=== PATIENT | female | born 1955 | race Caucasian/White ===

== ENCOUNTER 2020-03-14 12:18 | Emergency (ER) | payer BC, SELFPAY ==
--- NOTE | ~2020-03-14 | XR_ITS ---
EXAMINATION: XR hand LT min 3V DATE: 03/14/2020 12:42 INDICATION: Left hand pain. Fall. TECHNIQUE: 3 views of left hand were obtained. COMPARISON: None. FINDINGS: Bone alignment is normal. There is a nondisplaced avulsion fracture of palmar base of fifth middle phalanx.. There is mild osteoarthritis of triscaphe joint, first carpometacarpal joint, first interphalangeal joint, and second through fifth distal interphalangeal joints. IMPRESSION: 1. Nondisplaced avulsion fracture of palmar base of fifth middle phalanx. 2. Polyarticular osteoarthritis. Reviewed, dictated and finalized at location B.
[2020-03-14 12:28] VITALS: BP 123/96; PULSE 96; RESP 20; TEMP 36.3; O2SAT 99
--- NOTE | 2020-03-14 12:54 | ED.UPPEXIN ---
HPI - Extremity Injury (Upper) General Chief Complaint: Extremity Injury, Upper Stated Complaint: L/hand swollen Time Seen by Provider: 03/14/20 12:45 Source: patient and RN notes reviewed Mode of arrival: ambulatory Limitations: no limitations History of Present Illness HPI narrative: Patient presents today complaining of an injury to her right hand. A week ago she tripped over a curb and fell onto an outstretched hand. States swelling and pain persist in her fifth finger that occasionally radiates down to the wrist. Denies numbness or tingling. Currently rates her pain 3/10 and has been applying ice and taking ibuprofen with mild relief. complaint: injury to: right and finger Related Data Home Medications Medication Instructions Recorded Confirmed bupropion HCl 300 mg PO QAM 08/11/19 08/11/19 duloxetine 60 mg PO DAILY 08/11/19 08/11/19 levothyroxine [Synthroid] 75 mcg PO DAILY 08/11/19 08/11/19 omeprazole 20 mg PO DAILY 08/11/19 08/11/19 pitavastatin calcium [Livalo] 4 mg PO DAILY 08/11/19 08/11/19 travoprost [Travatan Z] 1 drp OPHTHALMIC (EYE) QPM 08/11/19 08/11/19 Allergies Allergy/AdvReac Type Severity Reaction Status Date / Time SURGICAL TAPE Allergy RASH AND Uncoded 03/14/20 12:34 ITCHING Review of Systems Review of Systems: Narrative: CONSTITUTIONAL: Denies body aches, fever, chills, or sweats. EYES: Denies visual changes, redness, or discharge. ENT: Denies rhinorrhea, congestion, sore throat, or otalgia. CARDIOVASCULAR: Denies chest pain, palpitations, or edema. RESPIRATORY: Denies cough or dyspnea. GASTROINTESTINAL: Denies abdominal pain, nausea, vomiting, or diarrhea. GENITOURINARY: Denies dysuria or hematuria. SKIN: Denies rash, itching, or wounds. MUSCULOSKELETAL: Denies back pain, or myalgia.+ Right fifth finger injury NEUROLOGIC: Denies headache, numbness, tingling, or weakness. PSYCH: Denies depression or anxiety. [facility] Social History Social History Smoking status: Former smoker Alcohol intake: current Substance use: never Comments At time of signature, I have reviewed and agree with nursing past medical, surgical, social and family history unless otherwise noted. Please see nursing chart for further information. There is no relevant family history pertinent to the presenting complaint Exam Narrative: Exam Narrative: GENERAL: Well-appearing, well-nourished, and in no acute distress. HEAD: Normocephalic, atraumatic. EYES: EOMI. No redness or drainage. Conjunctivae normal. ENT: Mucous membranes pink and moist. NECK: Normal AROM. CHEST: No respiratory distress. EXTREMITIES: Tenderness to the PIP and middle phalanx of the right fifth finger with mild edema and ecchymosis. No tenderness to the remaining fingers or metacarpals. Distal sensation intact. Capillary refill normal. Radial pulse normal. Range of motion is somewhat limited to the fifth finger due to pain and swelling. All other extremities grossly normal. SKIN: Warm, dry, no rash. Capillary refill normal. Normal skin turgor. NEURO: No focal deficits. Alert and oriented x3. Gait steady. PSYCH: Normal affect. No signs of depression or anxiety. Course Vital Signs Vital signs: Vital Signs Temperature 97.4 F L 03/14/20 12:28 Pulse Rate 96 03/14/20 12:28 Respiratory Rate 20 03/14/20 12:28 Blood Pressure 123/96 H 03/14/20 12:28 Pulse Oximetry 99 03/14/20 12:28 Temperature 97.4 F L 03/14/20 12:28 Pulse Rate 96 03/14/20 12:28 Respiratory Rate 20 03/14/20 12:28 Blood Pressure 123/96 H 03/14/20 12:28 Pulse Oximetry 99 03/14/20 12:28 Reviewed. Pt has been instructed to follow up with her PCP regarding her elevated blood pressure today. Procedures Orthopedic Splinting/Casting Injury #1: Splinting/Casting Date: 03/14/20 Splinting/Casting Time: 12:57 Side: right Upper Extremity Injury Location: [facility]
== END 2020-03-14 13:09 | disposition home or self-care (01) ==
PROVIDERS: Emergency Provider Nurse Practitioner; PCP Family Medicine
DX: S62.657A Nondisplaced fracture of middle phalanx of left little finger, initial encounter for closed fracture (principal); W18.00XA Striking against unspecified object with subsequent fall, initial encounter; E78.00 Pure hypercholesterolemia, unspecified; K21.9 Gastro-esophageal reflux disease without esophagitis; E03.9 Hypothyroidism, unspecified; H40.9 Unspecified glaucoma; F32.9 Major depressive disorder, single episode, unspecified; Z85.72 Personal history of non-Hodgkin lymphomas; Z92.21 Personal history of antineoplastic chemotherapy; Z92.3 Personal history of irradiation
CPT/HCPCS: 29130; 73130; 99214; G0463

== ENCOUNTER 2020-07-06 07:05 | Outpatient (NON) | payer BC, SELFPAY ==
[2020-07-07 12:35] LABS: SARS-CoV-2 RNA PCR Negative
== END 2020-07-06 07:06 ==
PROVIDERS: PCP Family Medicine; Visit Provider Physician Assistant
DX: R68.89 Other general symptoms and signs (principal); Z20.828 Contact with and (suspected) exposure to other viral communicable diseases
CPT/HCPCS: 87635; C9803; U0003

== ENCOUNTER 2020-10-10 10:32 | Emergency (ER) | payer BC, SELFPAY ==
--- NOTE | 2020-10-10 10:40 | ED.URI ---
HPI - URI/Sore Throat General Chief Complaint: Upper Respiratory Infection Stated Complaint: cough/scratchy throat Time Seen by Provider: 10/10/20 10:40 Source: patient and RN notes reviewed Mode of arrival: ambulatory Limitations: no limitations History of Present Illness HPI Narrative: 65-year-old female presents with concern for 3 to 4-day history of rhinorrhea, postnasal drainage, nasal congestion, sinus headache, ears clogged. Reports coughing started last night and could not sleep because of coughing. She denies fever, chills, sweats. Reports mild body aches. Reports scratchy throat. Denies any known sick contacts. Reports she is due for her second Covid vaccination in 10 days. She denies shortness of breath, loss of sense of taste or smell. MD elicited complaint: rhinorrhea Related Data Home Medications Medication Instructions Recorded Confirmed bupropion HCl 300 mg PO QAM 08/11/19 03/14/20 duloxetine 60 mg PO DAILY 08/11/19 03/14/20 levothyroxine [Synthroid] 75 mcg PO DAILY 08/11/19 03/14/20 omeprazole 20 mg PO DAILY 08/11/19 03/14/20 pitavastatin calcium [Livalo] 4 mg PO DAILY 08/11/19 03/14/20 travoprost [Travatan Z] 1 drp OPHTHALMIC (EYE) QPM 08/11/19 03/14/20 lisinopril 10/10/20 Allergies Allergy/AdvReac Type Severity Reaction Status Date / Time SURGICAL TAPE Allergy RASH AND Uncoded 03/14/20 12:34 ITCHING Review of Systems Review of Systems: Narrative: CONSTITUTIONAL: Denies malaise, chills, sweats, or fever. EYES: Denies visual changes, redness, or discharge. ENT: Reports rhinorrhea, congestion,otalgia and sore throat. CARDIOVASCULAR: Denies chest pain, palpitations, or edema. RESPIRATORY: Reports cough. Denies dyspnea. GASTROINTESTINAL: Denies abdominal pain, nausea, vomiting, diarrhea SKIN: Denies rash or itching. MUSCULOSKELETAL: Reports myalgia. NEUROLOGIC: Reports headache. All systems reviewed & are unremarkable except as noted in HPI and below PMFSH Past Medical History Medical History (Updated 10/10/20 @ 10:55 by Shayy Stewart NP) Acid reflux Anemia Depression Diverticulosis Glaucoma High cholesterol Hypothyroid Non Hodgkin's lymphoma Normal colonoscopy Rectocele Surgical History Surgical History History of bladder surgery History of carpal tunnel surgery History of cholecystectomy History of tonsillectomy Family History Family History Father Family history of heart disease in male family member before age 55 Mother Lung cancer High cholesterol Cerebrovascular accident Social History Social History Smoking status: Former smoker Alcohol intake: current Substance use: never Comments At time of signature, agree with nursing past medical, surgical, social and family history. There is no relevant family history pertinent to the presenting complaint Exam Narrative: Exam Narrative: GENERAL: Well-appearing, well-nourished, and in no acute distress. HEAD: Normocephalic EYES: PERRLA, conjunctivae clear ENT: Nares clear, turbinates erythematous, clear discharge. Mucous membranes moist. TM pearly birch with dull light reflex bilaterally; no tragal tenderness. Oropharynx not erythematous without lesions. Tonsils not enlarged and without exudate, no drooling, no hoarseness, no trismus, uvula midline. NECK: Supple. No lymphadenopathy CHEST: Clear to auscultation, breath sounds equal. No wheezing, rhonchi, rales, or stridor. No respiratory distress, speaks in full sentences. HEART: Regular rate and rhythm. No murmur heard. SKIN: Warm, dry, no rash. NEURO: Alert and oriented x3. PSYCH: Normal mood and affect Course Course Emergency Course: Patient is aware of diagnosis, understands and agrees to treatment plan. Anticipatory guidance given. Patient agrees to follow-up as directed and is aware of reaso
[2020-10-10 10:46] VITALS: BP 116/63; PULSE 91; RESP 16; TEMP 36.8; O2SAT 100
== END 2020-10-10 11:13 | disposition home or self-care (01) ==
PROVIDERS: Emergency Provider Nurse Practitioner; PCP Family Medicine
DX: J06.9 Acute upper respiratory infection, unspecified (principal); Z20.822 Contact with and (suspected) exposure to COVID-19; Z87.891 Personal history of nicotine dependence; K21.9 Gastro-esophageal reflux disease without esophagitis; F32.9 Major depressive disorder, single episode, unspecified; H40.9 Unspecified glaucoma; E78.00 Pure hypercholesterolemia, unspecified; E03.9 Hypothyroidism, unspecified; Z85.72 Personal history of non-Hodgkin lymphomas
CPT/HCPCS: 87426; 99213; C9803; G0463

== ENCOUNTER → 2020-12-20 07:35 | Outpatient (CLI) | payer BC, SELFPAY ==
--- NOTE | ~2020-12-20 | MR_ITS ---
EXAMINATION: MR lumbar spine wo con DATE: 12/20/2020 08:53 INDICATION: Lumbar spinal stenosis with neurogenic claudication. TECHNIQUE: Magnetic resonance imaging (MRI) of the lumbar spine was performed without intravenous con trast. Sequences included sagittal T2-weighted FSE, sagittal T2-weighted FS FSE, sagittal T1-weighted FSE, and axial T2-weighted FSE. COMPARISON: Lumbar spine MRI 06/24/2019 FINDINGS: There is 5 degrees levocurvature of lumbar spine. There is 3 mm retrolisthesis of L1 on L2, L2 on L3, and L3 on L4 and 4 mm anterolisthesis of L5 on S1. There is mild chronic anterior wedging of T11 vertebral body. There is moderately decreased disc height from L1-L2 through L3-L4, severely d ecreased disc height at L4-L5, and moderately decreased disc height at L5-S1. The distal spinal cord signal intensity is normal. The conus medullaris is at T12-L1. The following disc levels are specific ally discussed: L1-L2: The disc is bulging with superimposed left central extrusion. There is mild bilateral facet kristen int osteoarthritis. There is mild bilateral neural foraminal stenosis. There is mild central canal st enosis. L2-L3: The disc is bulging with superimposed central extrusion. There is mild bilateral facet joint o steoarthritis. There is mild bilateral neural foraminal stenosis. There is mild central canal stenosi s. L3-L4: The disc is bulging with superimposed right central extrusion. There is mild bilateral facet j oint osteoarthritis. There is mild bilateral neural foraminal stenosis. There is mild central canal s tenosis. L4-L5: The disc is bulging and has an annular fissure. There is severe right and moderate left facet joint osteoarthritis. There is moderate right and mild left neural foraminal stenosis. There is mild central canal stenosis. L5-S1: The disc is bulging and has an annular fissure. There is severe bilateral facet joint osteoart hritis. There is mild bilateral neural foraminal stenosis. There is mild central canal stenosis. IMPRESSION: 1. Severe lumbar spondylosis, stable from 06/24/2019. Reviewed, dictated and finalized at location A.
--- NOTE | ~2020-12-20 | MR_ITS ---
EXAMINATION: MR cervical spine wo con EXAM DATE: 12/20/2020 08:49 INDICATION: Cervical spondylosis. Neck pain. TECHNIQUE: Multi-sequential, multiplanar MR images of the cervical spine were obtained without contra st. Axial T2, axial T2 MERGE sequence. Sagittal T1, T2, T2 fat saturation images also obtained. Th ere is no prior study for comparison. FINDINGS: There is moderate to severe loss of the C5-6 disc height, moderate at C6-7 and mild at C4- 5. The spinal cord signal intensity and intrinsic morphology is normal. Cervicomedullary junction is normal in appearance. The vertebral bodies are aligned in the AP dimension. Paraspinal soft tissue is unremarkable. Level by level evaluation: C2-C3: Disc does not extend beyond the endplate margin. Uncovertebral joint arthropathy: Mild to moderate right, mild left. Facet joint arthropathy: Mild bilateral. Neural foraminal stenosis: No stenosis. Central canal stenosis: No stenosis. C3-C4: Disc does not extend beyond the endplate margin. Uncovertebral joint arthropathy: Mild bilateral. Facet joint arthropathy: Moderate bilateral. Neural foraminal stenosis: No stenosis. Central canal stenosis: No stenosis. C4-C5: There is a minimal diffuse disc bulge. Uncovertebral joint arthropathy: Mild bilateral. Facet joint arthropathy: Moderate bilateral. Neural foraminal stenosis: No stenosis. Central canal stenosis: No stenosis. C5-C6: There is a mild diffuse disc bulge. Uncovertebral joint arthropathy: Severe right, moderate left. Facet joint arthropathy: Moderate bilateral. Neural foraminal stenosis: Moderate to severe right. Central canal stenosis: Mild. C6-C7: There is a mild diffuse disc bulge. Uncovertebral joint arthropathy: Moderate to severe right, moderate left. Facet joint arthropathy: Moderate bilateral. Neural foraminal stenosis: Moderate right, mild to moderate left. Central canal stenosis: Minimal. C7-T1: Disc does not extend beyond the endplate margin. Uncovertebral joint arthropathy: Mild to moderate left. Facet joint arthropathy: Mild to moderate left. Neural foraminal stenosis: No stenosis. Central canal stenosis: No stenosis. IMPRESSION: 1. Right neural foraminal stenosis at C5-6 more than C6-7. 2. Spondylosis as above. Reviewed, dictated and finalized at location A.
== END ==
PROVIDERS: PCP Family Medicine; Visit Provider Neurological Surgery
DX: M47.812 Spondylosis without myelopathy or radiculopathy, cervical region (principal); M48.062 Spinal stenosis, lumbar region with neurogenic claudication; M47.896 Other spondylosis, lumbar region
CPT/HCPCS: 72141; 72148

== ENCOUNTER → 2021-01-02 10:38 | Outpatient (CLI) | payer BC, SELFPAY ==
--- NOTE | ~2021-01-02 | MM_ITS ---
EXAMINATION: MM screening logan BI w sher HISTORY: Screening TECHNIQUE: Craniocaudal and mediolateral oblique 3-D tomosynthesis images were obtained and synthetic 2-D images were generated. CAD analysis was submitted and interpreted. COMPARISON: 09/08/2017 BREAST PARENCHYMAL COMPOSITION: There are scattered areas of fibroglandular density. FINDINGS: There is no evidence of suspicious mass, calcification, or architectural distortion to sugg est malignancy in either breast. There has been no suspicious interval change. IMPRESSION: 1. No mammographic evidence of malignancy. 2. Recommend routine screening mammography in one year. BI-RADS Category 1: Negative Reviewed, dictated and finalized at location A.
--- NOTE | ~2021-01-02 | DEXA_ITS ---
Bone Density Report Name: Adrianna Cadena Age: 65 Sex: Female Ethnicity: White Date of : 1955 Indication: postmenopausal; screening for osteoporosis; height loss; Referring Provider: HERMAN BEST Study: Bone densitometry was performed. Exam Date: January 02, 2021 Accession number: [id number] Bone Density: Region BMD T-score Z-score Classification AP Spine (L1-L4) 1.205 1.4 3.1 Normal Femoral Neck (Left) 0.756 -0.8 0.6 Normal Total Hip (Left) 0.895 -0.4 0.8 Normal Femoral Neck (Right) 0.780 -0.6 0.8 Normal Total Hip (Right) 0.961 0.2 1.3 Normal Total Hip Mean 0.928 -0.1 1.1 Normal World Health Organization criteria for BMD impression classify patients as: Normal (T-score at or above -1.0), Osteopenia (T-score between -1.0 and -2.5), or Osteoporosis (T-score at or below -2.5). 10-year Fracture Risk: FRAX not reported because: All T-scores for Spine Total, Hip Total, Femoral Neck at or above -1.0 Clinical Information Provided by Patient: Patient maximum height was 63.5 Menopause Age: 45 No regular weight bearing exercise Does not regularly consume dairy products Drinks caffeinated beverages Onset of menses at age 14 Number of children 2 Impression: The patient has normal bone mass. Discussion: BONE DENSITY IS ABOVE THE MINIMUM DESIRABLE LEVEL AT ALL SKELETAL SITES TESTED. This patient?s bone mineral density is above the minimum desirable level (T-score -1.0 or better) at all sites measured. The patient should follow a healthful lifestyle (good nutrition with adequate calcium and vitamin D, and appropriate weight-bearing exercise). Follow-Up: Consider repeating this study in 5 years or sooner if there is some new clinical indication. Reported by: VIDA on 01/02/2021 11:06:00 AM. Reviewed, dictated and finalized at location [facility]
== END ==
PROVIDERS: PCP Family Medicine; Visit Provider Obstetrics & Gynecology
DX: Z12.31 Encounter for screening mammogram for malignant neoplasm of breast (principal); Z13.820 Encounter for screening for osteoporosis
CPT/HCPCS: 77063; 77067; 77080

== ENCOUNTER 2021-04-09 08:22 | Emergency (ER) | payer BC, SELFPAY ==
--- NOTE | ~2021-04-09 | XR_ITS ---
EXAMINATION: XR foot LT min 3V EXAM DATE: 04/09/2021 09:01 INDICATION: Fall with swelling Lt Lat Dorsal Hematoma Pain . Initial encounter. TECHNIQUE: Left foot dorsoplantar, lateral and oblique projections obtained and reviewed. There is n o prior study for comparison. FINDINGS: There is acute closed posttraumatic left 5th metatarsal shaft fracture extending toward th e 4th phalangeal base, a Mcnulty type fracture. There is also an acute avulsion fracture off of the anterior superolateral aspect of the calcaneus. T his finding has been indicated, marked on the examination for review, clinical correlation. There i s overlying soft tissue swelling. IMPRESSION: 1. Acute Mcnulty fracture. 2. Acute calcaneal avulsion fracture. Reviewed, dictated and finalized at location A.
[2021-04-09 08:32] VITALS: BP 130/84; PULSE 87; RESP 18; TEMP 36.6; O2SAT 100
--- NOTE | 2021-04-09 09:17 | ED.GENADULT ---
HPI - General Adult General Chief complaint: Extremity Injury, Lower Stated complaint: Left Foot Pain Time Seen by Provider: 04/09/21 09:05 Source: patient Mode of arrival: ambulatory Limitations: no limitations History of Present Illness HPI narrative: Patient presents for evaluation of pain in the left foot and ankle since yesterday. She indicates she was coming down a ladder when she missed the bottom step. She injured her left foot and ankle in the process. She did not hit her head or have loss of consciousness. At rest she has minimal pain, however with weightbearing her pain increases to 9 out of 10 in severity. She describes the pain as sharp . She has some numbness in all digits of the left foot. She has a history of a herniated disc in her lumbar spine, for which she takes hydrocodone. She tried taking hydrocodone for her foot and it seemed to reduce her pain. Related Data Home Medications Medication Instructions Recorded Confirmed bupropion HCl 300 mg PO QAM 08/11/19 01/22/21 duloxetine 60 mg PO DAILY 08/11/19 01/22/21 levothyroxine [Synthroid] 75 mcg PO DAILY 08/11/19 01/22/21 omeprazole 20 mg PO DAILY 08/11/19 01/22/21 pitavastatin calcium [Livalo] 4 mg PO DAILY 08/11/19 01/22/21 travoprost [Travatan Z] 1 drp OPHTHALMIC (EYE) QPM 08/11/19 01/22/21 lisinopril 10/10/20 01/22/21 Allergies Allergy/AdvReac Type Severity Reaction Status Date / Time SURGICAL TAPE Allergy RASH AND Uncoded 01/22/21 14:55 ITCHING Review of Systems Review of Systems: CONSTITUTIONAL: Denies fever, chills, or sweats. EYES: Denies visual changes, redness, or discharge. ENT: Denies rhinorrhea, congestion, sore throat, or otalgia. CARDIOVASCULAR: Denies chest pain, palpitations, or edema. RESPIRATORY: Denies cough or dyspnea. GASTROINTESTINAL: Denies abdominal pain, nausea, vomiting, or diarrhea. GENITOURINARY: Denies dysuria or hematuria. SKIN: Denies rash or itching. MUSCULOSKELETAL: Reports pain in the left foot and ankle. Denies back pain or myalgia. NEUROLOGIC: Denies headache, numbness, dizziness, or weakness. PSYCHIATRIC: Denies anxiety or depression. PMFSH Past Medical History Medical History (Updated 04/09/21 @ 09:56 by ALCIDES Ulrich, ) Acid reflux Anemia Depression Diverticulosis Glaucoma High cholesterol Hypothyroid Non Hodgkin's lymphoma Normal colonoscopy Rectocele Surgical History Surgical History History of bladder surgery History of carpal tunnel surgery History of cholecystectomy History of tonsillectomy Family History Family History Father Family history of heart disease in male family member before age 55 Mother Lung cancer High cholesterol Cerebrovascular accident Social History Social History Smoking status: Former smoker Alcohol intake: current Substance use: never Exam Narrative: GENERAL: Well-appearing, well-nourished, and in no acute distress. HEAD: Normocephalic, atraumatic. EYES: PERRLA and EOMI. ENT: Nares clear, no rhinorrhea or epistaxis. Mucous membranes moist. Oropharynx without tonsillar hypertrophy exudate or other lesions. Bilateral TMs pearly birch nonbulging NECK: Supple. No adenopathy or masses. No carotid bruits or JVD CHEST: Clear to auscultation. No respiratory distress. No wheezes rales or rhonchi HEART: Regular rate and rhythm. No murmur heard. Normal peripheral pulses. ABDOMEN: Soft, nontender, nondistended, normal active bowel sounds. EXTREMITIES: Tenderness noted over the dorsal aspect of the third, fourth, fifth metatarsals of the left foot. Normal range of motion. No edema. SKIN: Ecchymosis to dorsal aspect of the left foot and over the left lateral malleolus. Skin is warm, dry, no rash. NEURO: No focal deficits. Alert and oriented x3. PSYCH: Normal moo
[2021-04-09 11:05] VITALS: BP 103/81; PULSE 80; RESP 18; O2SAT 100
== END 2021-04-09 11:58 | disposition home or self-care (01) ==
PROVIDERS: Emergency Provider Nurse Practitioner; PCP Family Medicine
DX: S92.352A Displaced fracture of fifth metatarsal bone, left foot, initial encounter for closed fracture (principal); S92.002A Unspecified fracture of left calcaneus, initial encounter for closed fracture; F32.9 Major depressive disorder, single episode, unspecified; E78.00 Pure hypercholesterolemia, unspecified; E03.9 Hypothyroidism, unspecified; Z85.72 Personal history of non-Hodgkin lymphomas; Z87.891 Personal history of nicotine dependence; W11.XXXA Fall on and from ladder, initial encounter
CPT/HCPCS: 29515; 73630; 99284

== ENCOUNTER → 2021-08-21 09:45 | Outpatient (CLI) | payer BC, SELFPAY ==
[2021-08-21 21:10] LABS: SARS-CoV-2 RNA PCR Positive
== END ==
PROVIDERS: PCP Family Medicine; Visit Provider Physician Assistant
DX: U07.1 COVID-19 (principal)
CPT/HCPCS: C9803; U0003; U0005

== ENCOUNTER → 2022-01-17 11:59 | Outpatient (CLI) | payer MEDICARE, BC, SELFPAY ==
--- NOTE | ~2022-01-17 | MR_ITS ---
EXAMINATION: MR shoulder LT wo con DATE: 01/17/2022 12:40 INDICATION: Left shoulder pain TECHNIQUE: Magnetic resonance imaging (MRI) of the left shoulder was performed without intravenous co ntrast. Sequences included axial PD-weighted FS FSE, coronal oblique PD-weighted FS FSE, coronal obli que T2-weighted FS FSE, sagittal PD-weighted FS FSE, and sagittal T1-weighted SE. COMPARISON: None. FINDINGS: Coracoacromial arch: The acromion undersurface is flat in morphology (type I). The coracoacromial ligament is normal. Mild to moderate acromioclavicular osteoarthritis. Rotator cuff: Moderate subscapularis and mild supraspinatus and infraspinatus tendinopathy without discrete tear. E xtremity noted is thickening of the rotator cable. The teres minor tendon is normal. Normal rotator c uff muscle bulk and signal. Biceps tendon, glenoid labrum and glenohumeral cartilage: Long head of the biceps tendon is normal. A small tear at the base of the posterior superior glenoid labrum. Mild partial-thickness cartilage loss with smooth chondral surface along the cephalad third o f the glenoid. Additional partial thickness cartilage loss along the posterior superior aspect of the humeral head. Small marginal osteophytes along the inferior aspect of the humeral head. Fluid: Small glenohumeral joint effusion. Proportional extension of small amount of fluid caudal along the l randall head biceps tendon sheath. No loose osteochondral bodies. No abnormal fluid signal in the subacro mial/subdeltoid bursa to suggest bursitis. Bones: Normal marrow signal with no edema, fracture or abnormal marrow replacing process. IMPRESSION: 1. Mild to moderate rotator cuff tendinopathy without evident tear. 2. Mild glenohumeral osteoarthritis with small tear at the posterior superior glenoid labrum. 3. Small glenohumeral joint effusion. Reviewed, dictated and finalized at location A. IMPRESSION: 1. Mild to moderate rotator cuff tendinopathy without evident tear. 2. Mild glenohumeral osteoarthritis with small tear at the posterior superior g lenoid labrum. 3. Small glenohumeral joint effusion.
== END ==
PROVIDERS: PCP Family Medicine; Visit Provider Orthopaedic Surgery
DX: M25.412 Effusion, left shoulder (principal); M19.012 Primary osteoarthritis, left shoulder
CPT/HCPCS: 73221

== ENCOUNTER → 2022-04-16 12:40 | Outpatient (CLI) | payer MEDICARE, BC, SELFPAY ==
--- NOTE | ~2022-04-16 | MR_ITS ---
EXAMINATION: MR thoracic spine wo con DATE: 04/16/2022 13:23 INDICATION: Thoracic back pain. TECHNIQUE: Magnetic resonance imaging (MRI) of the thoracic spine was performed without intravenous c ontrast. Sagittal localizer T1-weighted FSE of the cervical spine was obtained. Thoracic spine sequen en included sagittal T2-weighted FSE, sagittal T1-weighted FSE, sagittal T2-weighted FS FSE, and axi al T2-weighted FSE. COMPARISON: None FINDINGS: There is 11 degrees levoscoliosis of upper thoracic spine. Vertebral body heights are kalin l. There is mildly decreased disc height at T3-T4, moderately decreased disc height from T4-T5 throug h T7-T8, severely decreased disc height at T8-T9, and moderately decreased disc height from T9-T10 th rough T11-T12. There is multilevel facet joint osteoarthritis, severe at many levels. There is mild n eural foraminal stenosis at most levels bilaterally. From T2-T3 through T10-T11, the discs are bulgin g with mild central canal stenosis. At [id number], there is a left central extrusion with mild centra l canal stenosis. The spinal cord signal intensity is normal. IMPRESSION: 1. Severe thoracic spondylosis. 2. Levoscoliosis of upper thoracic spine. Reviewed, dictated and finalized at location A.
== END ==
PROVIDERS: PCP Family Medicine; Visit Provider Nurse Practitioner Family
DX: M47.894 Other spondylosis, thoracic region (principal)
CPT/HCPCS: 72146

== ENCOUNTER → 2022-05-05 13:36 | Outpatient (CLI) | payer MEDICARE, BC, SELFPAY ==
--- NOTE | ~2022-05-05 | XR_ITS ---
EXAM: XR finger 1st RT min 2V DATE: 05/05/2022 14:02 HISTORY: Pain in unspecified hand . COMPARISON: None available. FINDINGS: Normal mineralization. No fracture or dislocation. No lytic or blastic lesion. Osteoarthri tic changes, severe at the right trapeziometacarpal joint. No erosion or periosteal change. Soft tiss ues within normal limits. IMPRESSION: No acute osseous finding in the right first digit. Reviewed, dictated and finalized at location K.
--- NOTE | ~2022-05-05 | XR_ITS ---
XR finger 1st LT min 2V 05/05/2022 14:02 Indication: Pain base of the left first finger. No trauma. Procedure: 3 views left first finger Comparison: 03/14/2020 Findings: Mild polyarticular osteoarthritis of the first finger. No fracture or traumatic malalignmen t. No foreign bodies. 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 Reviewed, dictated and finalized at location A. 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
== END ==
PROVIDERS: PCP Family Medicine; Visit Provider Physician Assistant
DX: M19.042 Primary osteoarthritis, left hand (principal)
CPT/HCPCS: 73140

== ENCOUNTER 2022-06-03 01:12 | Day surgery (SDC) | payer MEDICARE, BC, SELFPAY ==
[2022-05-22 12:29] VITALS: BMI 21.2
[2022-06-03 07:12] VITALS: BP 125/56; PULSE 83; RESP 16; TEMP 36.5; O2SAT 99; BMI 21.6
[2022-06-03] MEDS: LACTATED RINGERS 1,000 ML 150 ML IV CONT (07:22)
--- NOTE | 2022-06-03 07:46 | WPDANESEPPF ---
Anes - Initial Pre Proc Eval Procedure: Operation Date: 06/03/22 08:30 Proposed Procedures p Screening Colonoscopy - Jesus Bolden MD Date/Time: 06/03/22 07:46 Surgeon: Jesus Bolden MD Pre Op Diagnosis: neoplasm screening Patient Data Age: 67 Gender: F Height: 1.6 m Weight: 55.4 kg Last Vital Signs Temp 97.7 F 06/03/22 07:12 Pulse 83 06/03/22 07:12 Resp 16 06/03/22 07:12 BP 125/56 L 06/03/22 07:12 Pulse Ox 99 06/03/22 07:12 O2 Del Method Room Air 06/03/22 07:12 Allergies Allergy/AdvReac Type Severity Reaction Status Date / Time SURGICAL TAPE Allergy RASH AND Uncoded 06/03/22 07:11 ITCHING Home Medications Medication Instructions Recorded Confirmed Type bupropion HCl 300 mg 24 hr tablet, 300 mg PO QAM 08/11/19 06/03/22 History extended release duloxetine 60 mg capsule,delayed 60 mg PO DAILY 08/11/19 06/03/22 History release levothyroxine 75 mcg tablet 75 mcg PO DAILY 08/11/19 06/03/22 History (Synthroid) pitavastatin calcium 4 mg tablet 4 mg PO DAILY 08/11/19 06/03/22 History (Livalo) ibuprofen 600 mg tablet 600 mg PO TID PRN pain #20 tabs 04/09/21 06/03/22 Rx alprazolam 0.5 mg tablet 0.5 mg PO DAILY PRN Anxiety 12/25/21 06/03/22 History timolol maleate 0.5 % eye drops 1 drp EACH EYE BID 05/22/22 06/03/22 History Patient hx anesthesia problems: none Family hx anesthesia problems: none Results Review: All pre-operative results and documents have been reviewed as part of the pre-operative evaluation. [facility] Past Medical History Medical History (Updated 12/25/21 @ 13:19 by Rosalba Vale MA) Acid reflux Anemia Depression Diverticulosis Glaucoma High cholesterol Hypothyroid Non Hodgkin's lymphoma Normal colonoscopy Rectocele Surgical History Surgical History History of bladder surgery History of carpal tunnel surgery History of cholecystectomy History of tonsillectomy Family History Family History Father Family history of heart disease in male family member before age 55 Mother Lung cancer High cholesterol Cerebrovascular accident Social History Social History Smoking packs per day: 1 Smoking cigarettes per day: 20.0 Years smoked: 10 Smoking pack-years: 10.00 Tobacco type: cigarettes Alcohol intake: current Drinks per week: 1 Substance use: never Substance use type: does not use Living arrangements: with family 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 Informed Consent: The patient's anesthetic plan and its attendant risks and benefits were discussed with the patient/family/POA. Questions were solicited and answers provided to the satisfaction of the patient/family/POA.
--- NOTE | 2022-06-03 08:06 | PM.HPGS ---
History of Present Illness History of Present Illness Consent: Risks, benefits, and alternatives have been discussed and questions answered. Patient agrees to proceed with procedure. Chief complaint: neoplasm screening Narrative: Adrianna Cadena is a 67 year old female Presents for screening colonoscopy. Patient's current weight appetite and bowel movements are normal. She denies abdominal pain. Patient has had no bleeding. Family history is noncontributory. Patient had previous colonoscopy 2010. Apparently limited somewhat by poor preparation. Review of Systems Review of Systems: Review of systems noncontributory. [facility] Past Medical History Medical History (Updated 06/03/22 @ 08:08 by Jesus Bolden MD) Acid reflux Anemia Depression Diverticulosis Glaucoma High cholesterol Hypothyroid Non Hodgkin's lymphoma Normal colonoscopy Rectocele Surgical History Surgical History History of bladder surgery History of carpal tunnel surgery History of cholecystectomy History of tonsillectomy Family History Family History Father Family history of heart disease in male family member before age 55 Mother Lung cancer High cholesterol Cerebrovascular accident Social History Social History Smoking packs per day: 1 Smoking cigarettes per day: 20.0 Years smoked: 10 Smoking pack-years: 10.00 Tobacco type: cigarettes Alcohol intake: current Drinks per week: 1 Substance use: never Substance use type: does not use Living arrangements: with family 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 Gender identity (if verbalized by the patient): Female Spiritual care concerns: No Meds Home Medications and Allergies Home Medications Medication Instructions Recorded Confirmed Type bupropion HCl 300 mg 24 hr tablet, 300 mg PO QAM 08/11/19 06/03/22 History extended release duloxetine 60 mg capsule,delayed 60 mg PO DAILY 08/11/19 06/03/22 History release levothyroxine 75 mcg tablet 75 mcg PO DAILY 08/11/19 06/03/22 History (Synthroid) pitavastatin calcium 4 mg tablet 4 mg PO DAILY 08/11/19 06/03/22 History (Livalo) ibuprofen 600 mg tablet 600 mg PO TID PRN pain #20 tabs 04/09/21 06/03/22 Rx alprazolam 0.5 mg tablet 0.5 mg PO DAILY PRN Anxiety 12/25/21 06/03/22 History timolol maleate 0.5 % eye drops 1 drp EACH EYE BID 05/22/22 06/03/22 History Allergies Allergy/AdvReac Type Severity Reaction Status Date / Time SURGICAL TAPE Allergy RASH AND Uncoded 06/03/22 07:11 ITCHING Vital Signs Vital Signs - 24 hr 06/03/22 07:12 Temperature 97.7 F Pulse Rate 83 Respiratory Rate 16 Blood Pressure 125/56 L Pulse Oximetry 99 Oxygen Delivery Room Air Exam Narrative: Physical exam reveals patient to be alert. Vital signs stable. HEENT exam is unremarkable. Patient is anicteric. Lungs are clear to auscultation and percussion. Heart is without murmur or extra sounds. Abdomen bowel sounds present soft nontender with no organomegaly. Digital external rectal exam is normal. Assessment and Plan Assessment and plan (1) Encounter for screening colonoscopy: Code(s): Z12.11 - Encounter for screening for malignant neoplasm of colon Status: Acute Assessment and Plan: Patient presents for screening colonoscopy. Appears to be at average risk for colon polyps. Further recommendations will be given after colonoscopy.
[2022-06-03 08:37] VITALS: BP 86/53; PULSE 70; RESP 17; O2SAT 100
[2022-06-03 08:47] VITALS: BP 94/56; PULSE 74; RESP 17; O2SAT 100
[2022-06-03 08:57] VITALS: BP 104/69; PULSE 73; RESP 22; O2SAT 100
== END 2022-06-03 09:11 | disposition home or self-care (01) ==
PROVIDERS: PCP Family Medicine; Visit Provider Internal Medicine Gastroenterology
PROC: 0DJD8ZZ Inspection of Lower Intestinal Tract, Via Natural or Artificial Opening Endoscopic (ICD-10-PCS; CPT 45378; principal; 2022-06-03 08:30)
DX: Z12.11 Encounter for screening for malignant neoplasm of colon (principal); K62.89 Other specified diseases of anus and rectum; K64.8 Other hemorrhoids; K57.30 Diverticulosis of large intestine without perforation or abscess without bleeding; K62.2 Anal prolapse; E03.9 Hypothyroidism, unspecified; E78.00 Pure hypercholesterolemia, unspecified; F32.A Depression, unspecified; H40.9 Unspecified glaucoma; Z85.72 Personal history of non-Hodgkin lymphomas; F17.210 Nicotine dependence, cigarettes, uncomplicated
CPT/HCPCS: G0121; J2704; J7120

== ENCOUNTER 2022-06-12 17:25 | Inpatient (IN) | payer MEDICARE, BC, SELFPAY ==
--- NOTE | ~2022-06-12 | CT_ITS ---
EXAMINATION: CT guide absc cath placement DATE: 06/13/2022 15:21 INDICATION: Perisigmoid abscess. TECHNIQUE: The procedure including the risks, benefits, and alternatives was discussed with the patie nt. Risks discussed included bleeding and infection. The patient understood the risks and benefits an d agreed to proceed. The patient was confirmed to be receiving appropriate antibiotic coverage. The skin overlying the buttocks was prepped and draped in usual sterile fashion. Anesthetic was administ ered with 1% lidocaine subcutaneously. Moderate sedation was achieved with 1 mg Versed IV and 50 mcg fentanyl IV. An 18 gauge trochar needle was inserted into the perisigmoid abscess with CT guidance. T he needle was exchanged over a wire for 6 [place], 8 [place], and 9 [place] dilators and then for an 8.5 [place] pigtail catheter. The catheter was stitched to the skin, and a sterile dressing was applied. The mA was adjusted according to patient size. Iterative reconstruction technique was employed. The d ose-length product was 333.83 mGy-cm. There were no immediate complications. FINDINGS: CT images demonstrate the catheter within the perisigmoid abscess. 1 mL fluid was aspirated for testing. IMPRESSION: 1. Successful CT-guided perisigmoid abscess drainage. 2. 1 mL opaque, [place] fluid was sent for aerobic and anaerobic cultures. Reviewed, dictated and finalized at location A. MATIC HEAD SAWYER
--- NOTE | ~2022-06-12 | CT_ITS ---
EXAMINATION: CT abdomen pelvis w con DATE: 06/16/2022 10:12 INDICATION: Perisigmoid abscess. TECHNIQUE: Computed tomography (CT) of the abdomen and pelvis was performed with 100 mL Omnipaque 350 intravenous contrast. Automated exposure control and iterative reconstruction technique were employe d. The dose-length product was 271.08 mGy-cm. COMPARISON: CT abdomen and pelvis 06/12/2022 FINDINGS: The visualized portions of the lung bases demonstrates mild atelectasis. There are small pl eural effusions. The heart size is normal. No pericardial effusion. There are coronary artery calcifi cations. The liver is normal. There are changes of cholecystectomy. The spleen, pancreas, adrenal gla nds, and left kidney are normal. There is cortical thinning of right kidney. There are scattered dive rticula in the colon. There is wall thickening of the sigmoid colon, consistent with diverticulitis. The drain passes into the perisigmoid abscess and sigmoid colon lumen. There is no residual drainable fluid. There is fat stranding in the retroperitoneum and perirectal region, consistent with inflamma tion. There are no pathologically enlarged lymph nodes. There is no free intraperitoneal fluid. There is severe lumbar spondylosis. IMPRESSION: 1. Sigmoid diverticulitis with drain passing through the perisigmoid abscess into the sigmoid colon l umen. No residual drainable fluid. 2. Small pleural effusions. Reviewed, dictated and finalized at location A. TION SPECIALIST IMPRESSION: 1. Sigmoid diverticulitis with drain passing through the perisigmoid abscess in to the sigmoid colon lumen. No residual drainable fluid. 2. Small pleural effusions.
--- NOTE | ~2022-06-12 | XR_ITS ---
EXAMINATION: XR chest 1V portable DATE: 06/12/2022 20:42 INDICATION: Diverticulitis of the colon. TECHNIQUE: A single frontal view of the chest was obtained. COMPARISON: Chest 2 views 12/09/2010 FINDINGS: There is mild elevation of right hemidiaphragm. No pneumonia, pleural effusion, pneumothora x. The heart size is normal. Surgical clips in the right upper quadrant are likely from cholecystecto my. IMPRESSION: 1. No acute cardiopulmonary disease. Reviewed, dictated and finalized at location A. SHOVELER
[2022-06-12 16:40] VITALS: BMI 21.2
--- NOTE | 2022-06-12 17:48 | PC.NURSE ---
This patient, Adrianna Cadena, was admitted to 3 [facility] Surg Room 328-01. Report received from Denisse at [facility] in [place], [place]. Patient/family oriented to hospital policies and general routines including ID bracelet, bed and alarms, visiting hours, pain management, procedures, bathroom and other care routines, personal items, smoking policy, room service/diet, and visiting hours. Information on how to activate the Rapid Response Team has been discussed. Patient/Family are encouraged to report perceived risks to care and to ask questions if they do not understand what they are told or what they should do.
--- NOTE | 2022-06-12 18:04 | PM.IMHP ---
H&P: HPI History of Present Illness Date/Time: 06/12/22 18:04 Chief Complaint: Abdominal pain Narrative: This is a 67-year-old female patient who has been complaining of abdominal pain ever since her colonoscopy on 06/03/2022. The patient had a colonoscopy on 06/03/2022 and diagnosed with anal erosion, proctitis internal hemorrhoids, diverticulosis without perforation or abscess without bleeding. She was found to have internal hemorrhoids. The patient stated that she was complaining of abdominal pain the day after the colonoscopy and then it went away for couple days and then came back. The patient was complaining of right lower quadrant pain that radiated to left lower quadrant pain. The patient went to [facility] in [place] and she was found to have a ruptured diverticulitis with abscess. The patient was given Zosyn at [facility] in [place]. Dr. Hemphill has been consulted and spoke to him from [facility]. He recommended that the patient be NPO after midnight continue with antibiotic as a percutaneous drain may be inserted tomorrow. She has a subjective fever and her white count is 12.2. H&H is 11.8 and 36.6. Lactic is 2.2.The patient is being admitted to observation status on the date of service 06/12/2022. Review of Systems Review of Systems: See HPI All systems reviewed & are unremarkable except as noted in HPI and below Constitutional: Constitutional: Reports as per HPI and Reports no additional constitutional complaints Eyes: Eyes: Reports as per HPI and Reports no additional eye complaints ENT: Reports system reviewed and no additional complaints, except as documented and Reports Normal hearing present Cardiovascular: Cardiovascular: Reports no additional cardiovascular complaints Respiratory: Respiratory: Reports no additional respiratory complaints and Reports no additional respiratory complaints Gastrointestinal: Gastrointestinal: Reports as per HPI and Reports no additional gastrointestinal complaints Musculoskeletal: Musculoskeletal: Reports no additional musculoskeletal complaints Integumentary/Breasts: Skin/Breast: Reports system reviewed and no additional complaints, except as docu and Reports as per HPI Neurologic: Reports system reviewed and no additional complaints, except as documented, Reports as per HPI and Reports Normal hearing present Psychiatric: Psychiatric: Reports no additional psychiatric complaints and Reports as per HPI Endocrine: Endocrine: Reports no additional endocrine complaints Hematologic/Lymphatic: Hematologic/Lymphatic: Reports no additional hematologic/lymphatic complaints Allergic/Immunologic: Allergic/Immunologic: Reports no additional allergic/immunologic complaints [facility] Past Medical History Medical History (Updated 06/12/22 @ 20:33 by Donna Rosen NP) Acid reflux Anemia Depression Diverticulitis of intestine with perforation and abscess Diverticulosis Glaucoma High cholesterol Hypothyroid Mcnulty fracture Light headedness Non Hodgkin's lymphoma Treated with chemo and radiation Normal colonoscopy Rectocele Wears glasses Surgical History Surgical History (Updated 06/12/22 @ 20:27 by Donna Rosen NP) H/O left knee surgery To repair meniscus tear History of bladder surgery History of carpal tunnel surgery History of cholecystectomy History of tonsillectomy Family History Family History Father Family history of heart disease in male family member before age 55 Mother Lung cancer High cholesterol Cerebrovascular accident Social History Social History (Updated 06/12/22 @ 20:28 by Donna Rosen NP) Social History: 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 The patient occasionally drinks alcohol. She has 2 children. The patient quit smoking in 1985. 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 Code status full code Smo
[2022-06-12 18:26] VITALS: BP 105/52; PULSE 88; RESP 16; TEMP 36.1; O2SAT 96
[2022-06-12 18:56] LABS: Basophils Percent Auto 0.3 % (0.2-1.2); Eosinophils Percent Auto 0.1 % (0-4.4); Hematocrit 36.6 % (37.0-47.0); Hemoglobin 11.8 g/dL (12.0-15.0); Immature Granulocyte Absolute 0.07 K/mm3 (0.00-0.031); Immature Granulocyte Percent A 0.6 % (0-0.5); Lymphocytes Absolute Auto 1.01 K/mm3 (0.9-3.2); Lymphocytes Percent Auto 8.3 % (18.3-44.2); Mean Corpuscular HGB Conc 32.2 g/dl (32-36); Mean Corpuscular Hemoglobin 30.1 pg (26-34); Mean Corpuscular Volume 93.4 fl (80-100); Mean Platelet Volume 9.6 fl (7.4-10.4); Monocytes Absolute Auto 1.6 K/mm3 (0.1-0.6); Monocytes Percent Auto 12.8 % (2.6-8.5); Neutrophils Absolute Auto 9.5 K/mm3 (1.3-6.7); Neutrophils Percent Auto 77.9 % (45.5-73.1); Platelet Count Result 280 k/mm3 (150-375); Red Blood Count 3.92 M/mm3 (4.2-5.4); Red Cell Distribution Width 14.4 % (11.5-14.5); White Blood Count 12.2 K/mm3 (4.5-10.0)
[2022-06-12] MEDS: DEXTROSE 5%/0.9% SOD CHL 1,000 ML 100 ML IV CONT (19:00)
[2022-06-12] MEDS: fentaNYL CITRATE INJ (*CRX) 100 MCG/2 ML VIAL 25 MCG IV PUSH (19:04)
[2022-06-12 19:05] LABS: Lactic Acid Reflex 2.2 mmol/L (0.7-2.0); Magnesium 2.1 mg/dL (1.6-2.3)
[2022-06-12 20:00] VITALS: BP 101/66; PULSE 96; RESP 20; TEMP 36.8; O2SAT 96
[2022-06-12] MEDS: PIPERACILLIN/TAZOBACTAM SOD 4.5 GM in SODIUM CHLORIDE 0.9% IV 100 ML 125 ML IVPB (20:11)
[2022-06-12 21:54] LABS: Reflex Lactic Acid Yes or No Add Lactic
[2022-06-12 22:24] LABS: Lactic Acid 0.7 mmol/L (0.7-2.0)
[2022-06-12] MEDS: HYDROcodone/acetaminophen (*CRX) 5-325 MG TABLET 1 TAB PO (23:51)
[2022-06-13] VITALS (16 sets, daily range): BP systolic 88–121; BP diastolic 52–74; PULSE 79–91; RESP 16–21; TEMP 35.9–36.7; O2SAT 94–100; BMI 21.2
[2022-06-13 01:54] LABS: Appearance Urine Clear (Clear); Bilirubin Urine 1+ (Negative); Blood Urine Trace-intact (Negative); Color Urine Yellow (Yellow); Glucose Urine UA Negative (Negative); Ketones Urine Negative (Negative); Leukocyte Esterase Ur Trace LEU/UL (Negative); Nitrate Urine Negative (Negative); Protein Urine 1+ mg/dL (Negative)
[2022-06-13 02:03] LABS: Mucus Urine Rare /lpf; Squamous Epithelial Cell Urine Occasional /hpf (Few); WBC Urine 16-20 /hpf
[2022-06-13 02:18] LABS: Add Urine Microscopic? YES
[2022-06-13] MEDS: PIPERACILLIN/TAZOBACTAM SOD 4.5 GM in SODIUM CHLORIDE 0.9% IV 100 ML 125 ML IVPB (02:19)
[2022-06-13] MEDS: LEVOTHYROXINE SODIUM 75 MCG TABLET PO (05:32)
[2022-06-13] MEDS: DEXTROSE 5%/0.9% SOD CHL 1,000 ML 100 ML IV CONT ×2 (05:32→20:38)
[2022-06-13] MEDS: HYDROcodone/acetaminophen (*CRX) 5-325 MG TABLET 1 TAB PO ×2 (06:14→20:38)
[2022-06-13 06:34] LABS: Basophils Absolute Auto 0.1 K/mm3 (0.0-0.1); Basophils Percent Auto 0.7 % (0.2-1.2); Eosinophils Percent Auto 0.4 % (0-4.4); Hematocrit 34.9 % (37.0-47.0); Hemoglobin 10.3 g/dL (12.0-15.0); Immature Granulocyte Absolute 0.03 K/mm3 (0.00-0.031); Immature Granulocyte Percent A 0.4 % (0-0.5); Lymphocytes Absolute Auto 0.86 K/mm3 (0.9-3.2); Lymphocytes Percent Auto 10.5 % (18.3-44.2); Mean Corpuscular HGB Conc 29.5 g/dl (32-36); Mean Corpuscular Hemoglobin 30.1 pg (26-34); Mean Platelet Volume 10.1 fl (7.4-10.4); Monocytes Absolute Auto 1.1 K/mm3 (0.1-0.6); Monocytes Percent Auto 12.8 % (2.6-8.5); Neutrophils Absolute Auto 6.2 K/mm3 (1.3-6.7); Neutrophils Percent Auto 75.2 % (45.5-73.1); Platelet Count Result 220 k/mm3 (150-375); Red Blood Count 3.42 M/mm3 (4.2-5.4); Red Cell Distribution Width 14.6 % (11.5-14.5); White Blood Count 8.2 K/mm3 (4.5-10.0)
[2022-06-13 07:59] LABS: Anion Gap 10 mmol/L (8-16); Blood Urea Nitrogen 8 mg/dL (7-17); Calcium 8.2 mg/dL (8.4-10.2); Carbon Dioxide 21 mmol/L (22-30); Chloride 104 mmol/L (98-107); Estimated CRCL calculation 66 ml/min; Estimated Glomerular Filt Rate > 60; Glucose 131 mg/dL (65-110); Potassium 3.7 mmol/L (3.4-5.0); Sodium 135 mmol/L (137-145)
--- NOTE | 2022-06-13 08:10 | PM.IMPN ---
Progress Note: A&P Assessment and Plan (1) Diverticulitis of intestine with perforation and abscess: Code(s): K57.80 - Diverticulitis of intestine, part unspecified, with perforation and abscess without bleeding Status: Acute Assessment and Plan: -patient planned to have surgery today with percutaneous drain placement -continue with Zosyn. -blood culture no growth to date -continue with analgesics for the discomfort. -continue with IV fluids. -white blood cell count has decreased compared to yesterday from 12.2 to 8.2 -lactic acid 1.1 -CRP 23, this most likely due to infection (2) Abnormal urinalysis: Code(s): R82.90 - Unspecified abnormal findings in urine Status: Acute Assessment and Plan: -urinalysis revealed trace leukocyte Estrace. Negative for nitrates. -patient stated that she did have some dysuria and feelings of incomplete emptying of the bladder. -Zosyn should cover UTIs (3) High blood pressure: Code(s): I10 - Essential (primary) hypertension Status: Acute Assessment and Plan: -continue holding antihypertensive due to low blood pressure (4) Hypothyroid: Code(s): E03.9 - Hypothyroidism, unspecified Status: Acute Assessment and Plan: -continue with levothyroxine. -TSH 11.3, free T4 1.14, total T3 -patient states that she takes her levothyroxine as prescribed and is and has been on the same dose for many years. (5) High cholesterol: Code(s): E78.00 - Pure hypercholesterolemia, unspecified Status: Acute Assessment and Plan: -continue with rosuvastatin (6) Glaucoma: Code(s): H40.9 - Unspecified glaucoma Status: Acute Assessment and Plan: -continue with timolol Time Spent With Patient Time with patient: Greater than 35 minutes Subjective Date/time seen: 06/13/22 08:10 Interval history: Patient lying in bed resting. Patient's also in the room. Review of Systems Review of Systems: Patient is a 67-year-old woman has a history of glaucoma, hypothyroidism, GERD, hyperlipidemia. Patient had a colonoscopy a couple weeks ago and has experienced abdominal pain ever since. Patient was discovered to have diverticulitis of the intestine with perforation and abscess on 06/12/2022. Patient states that abdominal pain has improved since arriving yesterday patient describes abdominal discomfort as a pressure across her lower abdomen. Patient also states that she has a history of chronic back pain and she is seeking physical therapy as an outpatient. Patient mention dysuria and feelings of incomplete emptying of the bladder. Patient denies fever, congestion and, chest pain, shortness of breath, diarrhea, constipation, nausea, vomiting, and swelling in her legs. All systems reviewed & are unremarkable except as noted in HPI and below Exam Narrative: HENMT: moist mucous membranes EYES: EOM intact b/l NECK: no lymphadenopathy RESPIRATORY: clear to auscultation CARDIO: RRR GI: soft, bowel sounds present, tenderness with palpation across both the right and lower quadrants SKIN: no rashes EXTREMITIES: no edema, redness or tenderness Objective Data Vital Signs Vital Signs: Vital Signs - 24 hr 06/12/22 16:40 06/12/22 18:26 06/12/22 20:00 Temperature 97.0 F L 98.2 F Pulse Rate 88 96 Respiratory Rate 16 20 Blood Pressure 105/52 L 101/66 Pulse Oximetry 96 96 Oxygen Delivery Room Air 06/12/22 20:11 06/13/22 00:00 06/13/22 04:00 Temperature 97 F L 96.6 F L Pulse Rate 89 80 Respiratory Rate 20 20 Blood Pressure 92/61 L 96/53 L Pulse Oximetry 94 100 Oxygen Delivery Room Air Intake/Output Intake/Output: Intake & Output 06/10/22 06/11/22 06/12/22 06/13/22 23:59 23:59 23:59 23:59 Intake Total 100 1100 Output Total 4 Balance 100 1096 Meds/Results Medications: Active Medications Generic Name Dose Route Start Last Admin Trade Name Freq PRN Reason Stop Do
[2022-06-13 08:35] LABS: Free T4 Free Thyroxine Reflex 1.14 ng/dL (0.78-2.19)
[2022-06-13 08:54] LABS: Lactic Acid Reflex 1.1 mmol/L (0.7-2.0)
[2022-06-13] MEDS: TIMOLOL MALEATE 0.5% OP SOLN 5 ML BOTTLE 1 DROP EACH EYE ×2 (09:00→20:38)
[2022-06-13 09:47] LABS: Total Triiodothyronine (T3) 0.66 NG/ML (0.97-1.69)
[2022-06-13] MEDS: PIPERACILLIN/TAZOBACTAM SOD 4.5 GM in SODIUM CHLORIDE 0.9% IV 100 ML IVPB ×3 (09:58→20:38)
--- NOTE | 2022-06-13 10:00 | ECG_ITS ---
Measurements Intervals [place] Rate: 80 P: 55 SD: 136 QRS: 10 QRSD: 96 T: 35 QT: 368 QTc: 425 Interpretive Statements SINUS RHYTHM NORMAL ECG NO PREVIOUS ECG AVAILABLE FOR COMPARISON Electronically Signed On 06-13-2022 11:53:46 OIL DELIVERER by Kenny Nascimento D.O.
--- NOTE | 2022-06-13 11:13 | PM.CNGS ---
Assessment and Plan Assessment and plan (1) Diverticulitis of intestine with perforation and abscess: Code(s): K57.80 - Diverticulitis of intestine, part unspecified, with perforation and abscess without bleeding Status: Acute Assessment and Plan: exam largely benign, cont IV abx, will setup for CT guided perc drainage History of Present Illness Consult details Consult date: 06/13/22 Reason for consult: abdominal pain Requesting physician: Elodia Cao MD Narrative: Pt is a 67 y/o F presenting from OSH c/o severe LLQ abd pain over last few days. Pt had routine colonoscopy by Dr. Bolden on 06/03. Pt reports over last few days she has had worsening LLQ pain and pressure. Pt reports some subjective fevers and poor appetite. Pt denies previous episodes. Workup at OSH, including CT, significant for acute diverticulitis c perisigmoid abscess. Review of Systems Constitutional: Constitutional: Denies anorexia, Reports chills, Reports fatigue, Reports fever(s), Reports lethargy, Denies malaise, Reports poor appetite, Reports weakness, Denies weight gain and Denies weight loss Eyes: Eyes: Reports no additional eye complaints ENT: Reports system reviewed and no additional complaints, except as documented Cardiovascular: Cardiovascular: Reports no additional cardiovascular complaints Respiratory: Respiratory: Reports no additional respiratory complaints Gastrointestinal: Gastrointestinal: Reports as per HPI, Reports abdominal pain, Reports bloating, Reports GI cramping, Reports early satiety, Reports dyspepsia, Reports nausea and Denies vomiting Genitourinary: Genitourinary: Reports no additional female genitourinary complaints Musculoskeletal: Musculoskeletal: Reports no additional musculoskeletal complaints Integumentary/Breasts: Skin/Breast: Reports system reviewed and no additional complaints, except as docu Neurologic: Reports system reviewed and no additional complaints, except as documented Psychiatric: Psychiatric: Reports no additional psychiatric complaints Endocrine: Endocrine: Reports no additional endocrine complaints Hematologic/Lymphatic: Hematologic/Lymphatic: Reports no additional hematologic/lymphatic complaints Allergic/Immunologic: Allergic/Immunologic: Reports no additional allergic/immunologic complaints PMFSH Past Medical History Medical History Acid reflux Anemia Depression Diverticulitis of intestine with perforation and abscess Diverticulosis Glaucoma High cholesterol Hypothyroid Mcnulty fracture Light headedness Non Hodgkin's lymphoma Treated with chemo and radiation Normal colonoscopy Rectocele Wears glasses Surgical History Surgical History H/O left knee surgery To repair meniscus tear History of bladder surgery History of carpal tunnel surgery History of cholecystectomy History of tonsillectomy Family History Family History Father Family history of heart disease in male family member before age 55 Mother Lung cancer High cholesterol Cerebrovascular accident Social History Social History Social History: 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 The patient occasionally drinks alcohol. She has 2 children. The patient quit smoking in 1985. 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 Code status full code Smoking packs per day: 1 Smoking cigarettes per day: 20.0 Years smoked: 10 Smoking pack-years: 10.00 Smoking status: Former smoker Tobacco type: cigarettes Alcohol intake: current Drinks per week: 1 Substance use: never Substance use type: does not use Lack of Transportation: No Lack of Food: Never True Current Housing: I Have Housing Concerned About Future Housing: No Difficulty
[2022-06-13 12:33] LABS: Mean Platelet Volume 9.4 fl (7.4-10.4); Platelet Count Result 235 k/mm3 (150-375)
[2022-06-13 12:46] LABS: INR 1.2; Partial Thromboplastin Time 34.3 SECONDS (22.3-36.8); Prothrombin Time 14.6 Seconds (11.1-14.7)
--- NOTE | 2022-06-13 14:30 | WPDMODSED ---
Moderate Sedation Note-Pt Data Patient Data Diagnosis: Perisigmoid abscess. Present Complaint: Perisigmoid abscess. Procedure to be performed/Plan: CT-guided perisigmoid abscess drainage. Allergies Allergy/AdvReac Type Severity Reaction Status Date / Time SURGICAL TAPE Allergy RASH AND Uncoded 06/12/22 17:33 ITCHING Home Medications Medication Instructions Recorded Confirmed Type bupropion HCl 300 mg 24 hr tablet, 300 mg PO QAM 08/11/19 06/12/22 History extended release duloxetine 60 mg capsule,delayed 60 mg PO DAILY 08/11/19 06/12/22 History release levothyroxine 75 mcg tablet 75 mcg PO DAILY 08/11/19 06/12/22 History (Synthroid) alprazolam 0.5 mg tablet 0.5 mg PO DAILY PRN Anxiety 12/25/21 06/12/22 History timolol maleate 0.5 % eye drops 1 drp EACH EYE BID 05/22/22 06/12/22 History pantoprazole 40 mg tablet,delayed 40 mg PO QAM 06/12/22 06/12/22 History release (Protonix) rosuvastatin 20 mg tablet 20 mg PO DAILY 06/12/22 06/12/22 History Current Medications: Active Medications Hydrocodone Bitart/Acetaminophen (Hydrocodone/Acetaminophen (*Crx) 5-325 Mg Tablet) 1 tab PO Q4H PRN PRN Reason: Pain Rated 4-6 Last Admin: 06/13/22 06:14 Dose: 1 tab Alprazolam (Alprazolam (*Crx) 0.5 Mg Tablet) 0.5 mg PO DAILY PRN PRN Reason: Anxiety Bupropion HCl (Bupropion Hcl Xl (24 Hr) 150 Mg Tabcr) 300 mg PO QAM GHAZAL Duloxetine HCl (Duloxetine Hcl 60 Mg Capsule.Dr) 60 mg PO DAILY [facility] Fentanyl Citrate (Fentanyl Citrate Inj (*Crx) 100 Mcg/2 Ml Vial) 25 mcg IV PUSH Q4H PRN PRN Reason: Pain Rated 7-10 Last Admin: 06/12/22 19:04 Dose: 25 mcg Dextrose/Sodium Chloride (Dextrose 5% Sodium Chloride 0.9%) 1,000 mls @ 100 mls/hr IV CONT .Q10H GHAZAL Last Admin: 06/13/22 05:32 Dose: 100 mls/hr Piperacillin Sod/Tazobactam (Sod 4.5 gm/ Sodium Chloride) 100 mls @ 200 mls/hr IVPB Q6H [facility] Last Admin: 06/13/22 14:07 Dose: 100 mls/hr Levothyroxine Sodium (Levothyroxine Sodium 75 Mcg Tablet) 75 mcg PO DAILY@0630 [facility] Last Admin: 06/13/22 05:32 Dose: 75 mcg Ondansetron HCl (Ondansetron Inj 4 Mg/2 Ml Vial) 4 mg IV PUSH Q6H PRN PRN Reason: Nausea And Vomiting Pantoprazole Sodium (Pantoprazole 40 Mg Tablet) 40 mg PO QAM GHAZAL Rosuvastatin Calcium (Rosuvastatin 10 Mg Tablet) 20 mg PO DAILY GHAZAL Timolol Maleate (Timolol Maleate 0.5% Op Soln 5 Ml Bottle) 1 drop EACH EYE Q12HR [facility] Sedation/Anesthesia: No previous sedation/anesthesia problems (including family history). [facility] Past Medical History Medical History Acid reflux Anemia Depression Diverticulitis of intestine with perforation and abscess Diverticulosis Glaucoma High cholesterol Hypothyroid Mcnulty fracture Light headedness Non Hodgkin's lymphoma Treated with chemo and radiation Normal colonoscopy Rectocele Wears glasses Surgical History Surgical History H/O left knee surgery To repair meniscus tear History of bladder surgery History of carpal tunnel surgery History of cholecystectomy History of tonsillectomy Family History Family History Father Family history of heart disease in male family member before age 55 Mother Lung cancer High cholesterol Cerebrovascular accident Social History Social History Social History: The patient is and he is the durable power tax attorney for healthcare. The patient occasionally drinks alcohol. She has 2 children. The patient quit smoking in 1985. 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 Code status full code Smoking packs per day: 1 Smoking cigarettes per day: 20.0 Years smoked: 10 Smoking pack-years: 10.00 Smoking status: Former smoker Tobacco type: cigarettes Alcohol intake: current Drinks per week: 1 Substance use: never Substance use type: does
--- NOTE | 2022-06-13 15:59 | SUR.OPER ---
Note for Moderate Sedation for Drain Placement by Dr Santiago Pt in room at 1424 Time out including pt name, date of , allergy to surgical tape, procedure to be performed - drain placement with Dr Santiago at 1448 Case start at 1450 Case stop at 1519 Pt out of room at 1533 Report called to Jorge Lion primary nurse
[2022-06-13] MEDS: ROSUVASTATIN 10 MG TABLET 20 MG PO (16:48)
[2022-06-13] MEDS: DULoxetine HCL 60 MG CAPSULE.DR PO (16:49)
[2022-06-13] MEDS: PANTOPRAZOLE 40 MG TABLET PO (16:49)
[2022-06-13] MEDS: buPROPion HCL XL (24 HR) 150 MG TABCR 300 MG PO (16:50)
[2022-06-14] MEDS: HYDROcodone/acetaminophen (*CRX) 5-325 MG TABLET 1 TAB PO ×4 (02:01→20:22)
[2022-06-14] MEDS: PIPERACILLIN/TAZOBACTAM SOD 4.5 GM in SODIUM CHLORIDE 0.9% IV 100 ML IVPB (02:01)
[2022-06-14 04:00] VITALS: BP 86/41; PULSE 72; RESP 16; TEMP 36.3; O2SAT 97
[2022-06-14] MEDS: LEVOTHYROXINE SODIUM 75 MCG TABLET PO (07:27)
[2022-06-14] MEDS: PIPERACILLIN/TAZOBACTAM SOD 4.5 GM in SODIUM CHLORIDE 0.9% IV 100 ML 200 ML IVPB ×3 (08:35→20:22)
[2022-06-14] MEDS: ROSUVASTATIN 10 MG TABLET 20 MG PO (08:36)
[2022-06-14] MEDS: DULoxetine HCL 60 MG CAPSULE.DR PO (08:36)
[2022-06-14] MEDS: buPROPion HCL XL (24 HR) 150 MG TABCR 300 MG PO (08:36)
[2022-06-14] MEDS: PANTOPRAZOLE 40 MG TABLET PO (08:36)
[2022-06-14] MEDS: TIMOLOL MALEATE 0.5% OP SOLN 5 ML BOTTLE 1 DROP EACH EYE ×2 (08:37→20:30)
[2022-06-14 08:39] LABS: Basophils Percent Auto 0.6 % (0.2-1.2); Eosinophils Absolute Auto 0.2 K/mm3 (0-0.3); Eosinophils Percent Auto 2.6 % (0-4.4); Hematocrit 30.2 % (37.0-47.0); Hemoglobin 9.6 g/dL (12.0-15.0); Immature Granulocyte Absolute 0.04 K/mm3 (0.00-0.031); Immature Granulocyte Percent A 0.6 % (0-0.5); Lymphocytes Percent Auto 12.4 % (18.3-44.2); Mean Corpuscular HGB Conc 31.8 g/dl (32-36); Mean Corpuscular Hemoglobin 30.1 pg (26-34); Mean Corpuscular Volume 94.7 fl (80-100); Mean Platelet Volume 9.9 fl (7.4-10.4); Monocytes Absolute Auto 0.8 K/mm3 (0.1-0.6); Monocytes Percent Auto 11.3 % (2.6-8.5); Neutrophils Absolute Auto 5.3 K/mm3 (1.3-6.7); Neutrophils Percent Auto 72.5 % (45.5-73.1); Platelet Count Result 271 k/mm3 (150-375); Red Blood Count 3.19 M/mm3 (4.2-5.4); Red Cell Distribution Width 14.2 % (11.5-14.5); White Blood Count 7.3 K/mm3 (4.5-10.0)
[2022-06-14 08:47] LABS: Alanine Aminotransferase 41 U/L (6-35); Alkaline Phosphatase 115 U/L (38-126); Anion Gap 10 mmol/L (8-16); Aspartate Amino Transferase 38 U/L (14-36); Bilirubin,Total 0.4 mg/dL (0.2-1.3); Blood Urea Nitrogen 6 mg/dL (7-17); Calcium 8.1 mg/dL (8.4-10.2); Carbon Dioxide 24 mmol/L (22-30); Chloride 104 mmol/L (98-107); Estimated CRCL calculation 66 ml/min; Estimated Glomerular Filt Rate > 60; Glucose 124 mg/dL (65-110); Potassium 2.9 mmol/L (3.4-5.0); Sodium 138 mmol/L (137-145)
[2022-06-14] MEDS: POTASSIUM CHLORIDE 20 MEQ PACKET (FOR LIQUID) 60 MEQ PO (10:55)
--- NOTE | 2022-06-14 12:57 | PM.IMPN ---
Progress Note: A&P Assessment and Plan (1) Diverticulitis of intestine with perforation and abscess: Code(s): K57.80 - Diverticulitis of intestine, part unspecified, with perforation and abscess without bleeding Status: Acute Assessment and Plan: -patient postop day 1 from percutaneous drain placement -continue with Zosyn. -blood culture no growth to date -continue with analgesics for the discomfort. -patient does not have an elevated white blood cell count -plan to recheck CRP in 1-2 days -patients diet move to full liquids (2) Abnormal urinalysis: Code(s): R82.90 - Unspecified abnormal findings in urine Status: Acute Assessment and Plan: -continue Zosyn (3) Hypokalemia: Code(s): E87.6 - Hypokalemia Status: Acute Assessment and Plan: -patient's potassium this morning was 2.9 -patient was given 60 mEq of potassium -plan to recheck potassium in the morning (4) High blood pressure: Code(s): I10 - Essential (primary) hypertension Status: Acute Assessment and Plan: -continue holding antihypertensive due to low blood pressure (5) Hypothyroid: Code(s): E03.9 - Hypothyroidism, unspecified Status: Acute Assessment and Plan: -continue with levothyroxine. -TSH 11.3, free T4 1.14, total T3 -patient states that she takes her levothyroxine as prescribed and is and has been on the same dose for many years. (6) High cholesterol: Code(s): E78.00 - Pure hypercholesterolemia, unspecified Status: Acute Assessment and Plan: -continue with rosuvastatin (7) Glaucoma: Code(s): H40.9 - Unspecified glaucoma Status: Acute Assessment and Plan: -continue with timolol Time Spent With Patient Time with patient: Greater than 35 minutes Subjective Date/time seen: 06/14/22 12:57 Interval history: 67-year-old female with history hyperlipidemia, hypothyroid, hypertension, glaucoma, status post colonoscopy. Patient status postop day [address]-guided percutaneous drainage of colon abscess. Patient states that abdominal pain has significantly improved from day of admission. She is currently only having mild pain with movement. Patient denies fever, chest pain, shortness a breath, lower extremity swelling redness and tenderness. Exam Narrative: HENMT: moist mucous membranes EYES: EOM intact b/l NECK: no lymphadenopathy RESPIRATORY: clear to auscultation CARDIO: RRR GI: soft, mild tenderness, bowel sounds present SKIN: no rashes EXTREMITIES: no edema, redness or tenderness Objective Data Vital Signs Vital Signs: Vital Signs - 24 hr 06/13/22 15:38 06/13/22 14:30 06/13/22 15:05 Temperature 97.6 F Pulse Rate 79 85 84 Respiratory Rate 16 16 20 Blood Pressure 92/58 L 114/73 109/69 Pulse Oximetry 96 97 100 Oxygen Delivery Nasal Cannula Nasal Cannula Oxygen Flow Rate 2 2 06/13/22 14:50 06/13/22 14:55 06/13/22 15:00 Temperature Pulse Rate 91 85 83 Respiratory Rate 17 19 18 Blood Pressure 121/74 106/68 100/72 Pulse Oximetry 100 100 100 Oxygen Delivery Nasal Cannula Nasal Cannula Nasal Cannula Oxygen Flow Rate 2 2 2 06/13/22 15:10 06/13/22 15:15 06/13/22 15:20 Temperature Pulse Rate 82 81 79 Respiratory Rate 20 17 21 H Blood Pressure 94/58 L 96/61 L 93/57 L Pulse Oximetry 100 100 97 Oxygen Delivery Nasal Cannula Nasal Cannula Room Air Oxygen Flow Rate 2 2 06/13/22 15:25 06/13/22 15:30 06/13/22 20:00 Temperature 97.4 F L Pulse Rate 82 80 79 Respiratory Rate 20 19 16 Blood Pressure 94/59 L 101/67 92/52 L Pulse Oximetry 94 94 99 Oxygen Delivery Room Air Room Air Oxygen Flow Rate 06/13/22 20:00 06/13/22 21:56 06/14/22 04:00 Temperature 97.4 F L Pulse Rate 72 Respiratory Rate 16 Blood Pressure 88/53 L 86/41 L Pulse Oximetry 97 Oxygen Delivery Room Air Oxygen Flow Rate 06/14/22 08:30 Temperature Pulse Rate Respiratory Rate Blood Pressure
[2022-06-14 14:27] VITALS: BP 98/57; PULSE 78; RESP 16; TEMP 36.7; O2SAT 96
[2022-06-14 20:00] VITALS: BP 121/58; PULSE 99; RESP 18; TEMP 37.1; O2SAT 96
--- NOTE | 2022-06-14 20:34 | PM.PNGS ---
Progress Note: A&P Assessment and Plan (1) Diverticulitis of intestine with perforation and abscess: Code(s): K57.80 - Diverticulitis of intestine, part unspecified, with perforation and abscess without bleeding Status: Acute Assessment and Plan: Patient tolerated the percutaneous drain placement well. She is having some trouble laying on her back because the drain. We discussed how to take care of the drain and how became dressing can be changed. She understands we will continue IV antibiotics for another day or 2 and hopefully discharge on oral antibiotics to have the drain removed in the office when drainage stops. Will advance patient's diet if she is tolerating this well. Has not yet had a bowel movement but if she does not will start MiraLax perhaps. (2) High blood pressure: Code(s): I10 - Essential (primary) hypertension Status: Acute Assessment and Plan: As per hospitalist (3) Hypothyroid: Code(s): E03.9 - Hypothyroidism, unspecified Status: Acute Assessment and Plan: as per hospitalist. Subjective Subjective Date/Time Seen: 06/14/22 20:34 Patient reports: no new complaints, tolerating liquids well, flatus and no bowel movement Interval history: Patient sitting in bed when I entered the room trying clear liquids. She states she is not nauseated and tolerating liquids. Pain is improved. She did not know that the [place] on the drain bag needs to be compressed. I educated her on this. She states that this is not the 1st time that she has had diverticulitis. Review of Systems Review of Systems: All systems reviewed & are unremarkable except as noted in HPI and below Constitutional: Constitutional: Reports as per HPI, Denies chills and Denies fever(s) Cardiovascular: Cardiovascular: Denies chest pain and Denies dyspnea Respiratory: Respiratory: Reports no additional respiratory complaints and Denies dyspnea Gastrointestinal: Gastrointestinal: Reports as per HPI and Denies bloating Musculoskeletal: Musculoskeletal: Reports no additional musculoskeletal complaints Neurologic: Denies memory loss Psychiatric: Psychiatric: Denies anxiety and Denies memory loss Exam Const: General: cooperative, comfortable, alert and awake Orientation/consciousness: patient oriented x3 HENMT: Head: normal to inspection Mouth: Yes moist mucous membranes Eyes: Sclera: sclerae normal Pupils: Equal, round and reactive pupils present Neck: Neck: normal visual inspection Chest: Chest palpation & inspection: normal inspection of the chest Resp: Effort & Inspection: normal respiratory effort Auscultation: clear to auscultation bilaterally Cardio: Rate: regular rate GI: Inspection: normal to inspection and no visible herniation GI Palp: Yes abdominal tenderness ( Mild -- left lower quadrant) Auscultation: normal bowel sounds Other: The patient's percutaneous drain is centered on the right posterior hip region so I suspect this went through the obturator area. Jeremy red drainage in the tubing and collection bag. Neuro: General: patient oriented x3 Cranial nerves: Yes Equal, round and reactive pupils present Objective Data Vital Signs Vital Signs: Vital Signs - 24 hr 06/13/22 21:56 06/14/22 04:00 06/14/22 08:30 Temperature 36.3 C L Pulse Rate 72 Respiratory Rate 16 Blood Pressure 88/53 L 86/41 L Pulse Oximetry 97 Oxygen Delivery Room Air 06/14/22 14:27 06/14/22 20:00 Temperature 36.7 C 37.1 C Pulse Rate 78 99 Respiratory Rate 16 18 Blood Pressure 98/57 L 121/58 L Pulse Oximetry 96 96 Oxygen Delivery Intake/Output Intake/Output: Intake & Output 06/11/22 06/12/22 06/13/22 06/14/22 23:59 23:59 23:59 23:59 Intake Total 100 2400 1740 Output Total 4 0 Balance 100 2396 1740 Meds/Results Medications: Active Medications Generic Name Dose Route Start Last Admin Trade Name Freq PRN Reason Stop Dose Admi
[2022-06-15] MEDS: PIPERACILLIN/TAZOBACTAM SOD 4.5 GM in SODIUM CHLORIDE 0.9% IV 100 ML 200 ML IVPB ×4 (03:00→23:30)
[2022-06-15] MEDS: LEVOTHYROXINE SODIUM 75 MCG TABLET PO (05:32)
[2022-06-15 05:41] VITALS: BP 97/62; PULSE 80; RESP 18; TEMP 36.5; O2SAT 98
[2022-06-15 06:49] LABS: Mean Corpuscular HGB Conc 32.3 g/dl (32-36); Mean Corpuscular Hemoglobin 29.8 pg (26-34); Mean Corpuscular Volume 92.3 fl (80-100); Mean Platelet Volume 9.7 fl (7.4-10.4); Platelet Count Result 287 k/mm3 (150-375); Red Blood Count 3.36 M/mm3 (4.2-5.4); Red Cell Distribution Width 13.8 % (11.5-14.5); White Blood Count 9.5 K/mm3 (4.5-10.0)
[2022-06-15 07:04] LABS: Alanine Aminotransferase 51 U/L (6-35); Albumin Level 3.2 g/dL (3.5-5.1); Alkaline Phosphatase 143 U/L (38-126); Anion Gap 9 mmol/L (8-16); Aspartate Amino Transferase 41 U/L (14-36); Bilirubin,Total 0.6 mg/dL (0.2-1.3); Blood Urea Nitrogen 5 mg/dL (7-17); Calcium 8.5 mg/dL (8.4-10.2); Carbon Dioxide 26 mmol/L (22-30); Chloride 100 mmol/L (98-107); Estimated CRCL calculation 66 ml/min; Estimated Glomerular Filt Rate > 60; Glucose 106 mg/dL (65-110); Magnesium 1.9 mg/dL (1.6-2.3); Potassium 3.3 mmol/L (3.4-5.0); Sodium 135 mmol/L (137-145)
[2022-06-15] MEDS: POTASSIUM CHLORIDE 20 MEQ PACKET (FOR LIQUID) 60 MEQ PO (08:26)
[2022-06-15] MEDS: buPROPion HCL XL (24 HR) 150 MG TABCR 300 MG PO (08:27)
[2022-06-15] MEDS: TIMOLOL MALEATE 0.5% OP SOLN 5 ML BOTTLE 1 DROP EACH EYE ×2 (08:27→21:00)
[2022-06-15] MEDS: ROSUVASTATIN 10 MG TABLET 20 MG PO (08:27)
[2022-06-15] MEDS: PANTOPRAZOLE 40 MG TABLET PO (08:27)
[2022-06-15] MEDS: DULoxetine HCL 60 MG CAPSULE.DR PO (08:27)
[2022-06-15 13:00] VITALS: BP 100/65; PULSE 82; RESP 18; TEMP 36.6; O2SAT 99
--- NOTE | 2022-06-15 13:00 | PM.IMPN ---
Progress Note: A&P Assessment and Plan (1) Diverticulitis of intestine with perforation and abscess: Code(s): K57.80 - Diverticulitis of intestine, part unspecified, with perforation and abscess without bleeding Status: Acute Assessment and Plan: -patient postop day 2 from percutaneous drain placement -continue with Zosyn. -blood culture revealed E. coli -discontinue analgesics -patient does not have an elevated white blood cell count -plan to recheck CRP in 1-2 days -patients diet move to full liquids -Warba 5-325 discontinued due to patient is saying that she has very little pain. 500 mg Tylenol p.r.n. added. -Patient's diet advanced to low-fiber -Activity: Ambulation (2) Abnormal urinalysis: Code(s): R82.90 - Unspecified abnormal findings in urine Status: Acute Assessment and Plan: -continue Zosyn (3) Hypokalemia: Code(s): E87.6 - Hypokalemia Status: Acute Assessment and Plan: -patient's potassium this morning was 3.3 -plan to recheck potassium in the morning (4) High blood pressure: Code(s): I10 - Essential (primary) hypertension Status: Acute Assessment and Plan: -continue holding antihypertensive due to low blood pressure (5) Hypothyroid: Code(s): E03.9 - Hypothyroidism, unspecified Status: Acute Assessment and Plan: -continue with levothyroxine. -TSH 11.3, free T4 1.14, total T3 -patient states that she takes her levothyroxine as prescribed and is and has been on the same dose for many years. (6) High cholesterol: Code(s): E78.00 - Pure hypercholesterolemia, unspecified Status: Acute Assessment and Plan: -continue with rosuvastatin (7) Glaucoma: Code(s): H40.9 - Unspecified glaucoma Status: Acute Assessment and Plan: -continue with timolol (8) Insomnia: Code(s): G47.00 - Insomnia, unspecified Status: Acute Assessment and Plan: Patient stated that she is having difficulty sleeping while staying in the hospital. She has been taking her pain medication in order to help her sleep. I discontinued the Warba 5-325 and added Benadryl 50 mg with 5 mg of melatonin. Time Spent With Patient Time with patient: 25 - 35 minutes Subjective Date/time seen: 06/15/22 13:00 Interval history: 67-year-old female with history hyperlipidemia, hypothyroid, hypertension, glaucoma, status post colonoscopy. Patient status postop day [address]-guided percutaneous drainage of colon abscess. Patient states that abdominal pain has significantly improved from day of admission. She is currently only having mild pain with movement. Patient denies fever, chest pain, shortness a breath, lower extremity swelling redness and tenderness. Exam Narrative: HENMT: moist mucous membranes EYES: EOM intact b/l NECK: no lymphadenopathy RESPIRATORY: clear to auscultation CARDIO: RRR GI: soft, no tenderness, bowel sounds present SKIN: no rashes, site of drain insertion without redness, irritation, and dry bandages EXTREMITIES: no edema, redness or tenderness Objective Data Vital Signs Vital Signs: Vital Signs - 24 hr 06/14/22 14:27 06/14/22 20:00 06/15/22 05:41 Temperature 98.1 F 98.8 F 97.7 F Pulse Rate 78 99 80 Respiratory Rate 16 18 18 Blood Pressure 98/57 L 121/58 L 97/62 L Pulse Oximetry 96 96 98 Intake/Output Intake/Output: Intake & Output 06/12/22 06/13/22 06/14/22 06/15/22 23:59 23:59 23:59 23:59 Intake Total 100 2400 1840 340 Output Total 4 0 Balance 100 2396 1840 340 Meds/Results Medications: Active Medications Generic Name Dose Route Start Last Admin Trade Name Freq PRN Reason Stop Dose Admin Hydrocodone Bitart/Acetaminophen 1 tab 06/12/22 20:24 06/14/22 20:22 Hydrocodone/Acetaminophen (*Crx) 5-325 Mg Tablet PO 1 tab Q4H PRN Administration Pain Rated 4-6 Alprazolam 0.5 mg 06/12/22 20:20 Alprazolam (*Crx) 0.5 Mg Tablet P
--- NOTE | 2022-06-15 16:08 | PM.PNGS ---
Progress Note: A&P Assessment and Plan (1) Diverticulitis of intestine with perforation and abscess: Code(s): K57.80 - Diverticulitis of intestine, part unspecified, with perforation and abscess without bleeding Status: Acute Assessment and Plan: Patient tolerated the percutaneous drain placement well. She is having some trouble laying on her back because the drain. We discussed how to take care of the drain and how became dressing can be changed. She understands we will continue IV antibiotics for another day or 2 and hopefully discharge on oral antibiotics to have the drain removed in the office when drainage stops. Will advance patient's diet as she is tolerating this well. Did have a bowel movement earlier today. Probably will be ready to go home tomorrow. Preliminary cultures from drain placement show E coli and sensitivities are pending. May be able to go home on Levaquin and Flagyl. (2) High blood pressure: Code(s): I10 - Essential (primary) hypertension Status: Acute Assessment and Plan: As per hospitalist (3) Hypothyroid: Code(s): E03.9 - Hypothyroidism, unspecified Status: Acute Assessment and Plan: as per hospitalist. Encouraged the patient to follow-up with PCP regarding this in view of the lab studies Subjective Subjective Date/Time Seen: 06/15/22 14:09 Patient reports: no new complaints, feels better and bowel movement ( the 1st 1 solid then a loose stool) Interval history: Patient feeling okay. Was on bedrest without me knowing it. Most likely was temporary for a short period after placement of the transgluteal drain by the radiologist. Patient having no real difficulties with the drain other than understanding how to keep it from dangling and getting pulled. Nurse continues to educate patient regarding this. All questions answered. Review of Systems Review of Systems: All systems reviewed & are unremarkable except as noted in HPI and below Constitutional: Constitutional: Reports as per HPI, Denies chills and Denies fever(s) Cardiovascular: Cardiovascular: Denies chest pain and Denies dyspnea Respiratory: Respiratory: Reports no additional respiratory complaints and Denies dyspnea Gastrointestinal: Gastrointestinal: Reports as per HPI and Denies bloating Musculoskeletal: Musculoskeletal: Reports no additional musculoskeletal complaints Neurologic: Denies memory loss Psychiatric: Psychiatric: Denies anxiety and Denies memory loss Exam Const: General: cooperative, comfortable, alert and awake Orientation/consciousness: patient oriented x3 HENMT: Head: normal to inspection Mouth: Yes moist mucous membranes Eyes: Sclera: sclerae normal Pupils: Equal, round and reactive pupils present Neck: Neck: normal visual inspection Chest: Chest palpation & inspection: normal inspection of the chest Resp: Effort & Inspection: normal respiratory effort Auscultation: clear to auscultation bilaterally Cardio: Rate: regular rate GI: Inspection: normal to inspection and no visible herniation GI Palp: Yes abdominal tenderness ( Mild -- left lower quadrant) Auscultation: normal bowel sounds Other: The patient's percutaneous drain is centered on the right posterior hip region so I suspect this went through the obturator area. Jeremy red drainage in the tubing and collection bag. Suction on the drain is periodically decompressing however in general is stain compressed if the patient recompresses it. I educated her more on this. Neuro: General: patient oriented x3 Cranial nerves: Yes Equal, round and reactive pupils present Objective Data Vital Signs Vital Signs: Vital Signs - 24 hr 06/14/22 20:00 06/15/22 05:41 06/15/22 13:00 Temperature 37.1 C 36.5 C 36.6 C Pulse Rate 99 80 82 Respiratory Rate 18 18 18 Blood Pressure 121/58 L 97/62 L 100/65 Pulse Oximetry 96 98 99 Intake/Output Intake/Output: Intake & Output
[2022-06-15 21:51] VITALS: BP 115/61; PULSE 71; RESP 20; TEMP 36.4; O2SAT 100
[2022-06-15] MEDS: MELATONIN 5 MG TABLET PO (22:36)
[2022-06-15] MEDS: diphenhydrAMINE HCl CAP 25 MG CAPSULE 50 MG PO (22:36)
[2022-06-16] MEDS: LEVOTHYROXINE SODIUM 75 MCG TABLET PO (05:32)
[2022-06-16] MEDS: PIPERACILLIN/TAZOBACTAM SOD 4.5 GM in SODIUM CHLORIDE 0.9% IV 100 ML 200 ML IVPB ×2 (05:32→12:34)
[2022-06-16 05:42] VITALS: BP 114/50; PULSE 62; RESP 20; TEMP 36.6; O2SAT 98
[2022-06-16 08:03] LABS: CRP 19.8 mg/dL (<1.0)
[2022-06-16] MEDS: POTASSIUM CHLORIDE 20 MEQ PACKET (FOR LIQUID) 60 MEQ PO (08:47)
[2022-06-16] MEDS: buPROPion HCL XL (24 HR) 150 MG TABCR 300 MG PO (08:48)
[2022-06-16] MEDS: DULoxetine HCL 60 MG CAPSULE.DR PO (08:48)
[2022-06-16] MEDS: TIMOLOL MALEATE 0.5% OP SOLN 5 ML BOTTLE 1 DROP EACH EYE (08:48)
[2022-06-16] MEDS: ROSUVASTATIN 10 MG TABLET 20 MG PO (08:48)
[2022-06-16] MEDS: PANTOPRAZOLE 40 MG TABLET PO (08:48)
[2022-06-16 09:29] LABS: Basophils Absolute Auto 0.1 K/mm3 (0.0-0.1); Basophils Percent Auto 0.8 % (0.2-1.2); Eosinophils Absolute Auto 0.1 K/mm3 (0-0.3); Eosinophils Percent Auto 2.1 % (0-4.4); Hematocrit 29.5 % (37.0-47.0); Hemoglobin 9.4 g/dL (12.0-15.0); Immature Granulocyte Absolute 0.03 K/mm3 (0.00-0.031); Immature Granulocyte Percent A 0.5 % (0-0.5); Lymphocytes Absolute Auto 0.97 K/mm3 (0.9-3.2); Lymphocytes Percent Auto 14.7 % (18.3-44.2); Mean Corpuscular HGB Conc 31.9 g/dl (32-36); Mean Corpuscular Hemoglobin 29.7 pg (26-34); Mean Corpuscular Volume 93.1 fl (80-100); Monocytes Absolute Auto 0.7 K/mm3 (0.1-0.6); Monocytes Percent Auto 9.8 % (2.6-8.5); Neutrophils Absolute Auto 4.8 K/mm3 (1.3-6.7); Neutrophils Percent Auto 72.1 % (45.5-73.1); Platelet Count Result 312 k/mm3 (150-375); Red Blood Count 3.17 M/mm3 (4.2-5.4); Red Cell Distribution Width 13.8 % (11.5-14.5); White Blood Count 6.6 K/mm3 (4.5-10.0)
--- NOTE | 2022-06-16 11:54 | PM.PNGS ---
Progress Note: A&P Assessment and Plan (1) Diverticulitis of intestine with perforation and abscess: Code(s): K57.80 - Diverticulitis of intestine, part unspecified, with perforation and abscess without bleeding Status: Acute Assessment and Plan: doing well, drain removed, cont po abx as outpt, f/u 2 wks Subjective Subjective Date/Time Seen: 06/16/22 11:54 feels good, no further pain, layo low fiber diet Review of Systems Review of Systems: All systems reviewed & are unremarkable except as noted in HPI and below Exam Const: General: cooperative, comfortable and no acute distress Resp: Auscultation: clear to auscultation bilaterally Cardio: Rate: regular rate Rhythm: regular rhythm GI: Inspection: normal to inspection and non-distended GI Palp: No abdominal tenderness, Yes Soft to palpation, No Tenderness to palpation present (GI), No Guarding due to palpation present (GI) and No Rigid due to palpation Other: perc drain removed at bedside Objective Data Vital Signs Vital Signs: Vital Signs - 24 hr 06/15/22 13:00 06/15/22 21:51 06/15/22 20:00 Temperature 36.6 C 36.4 C L Pulse Rate 82 71 Respiratory Rate 18 20 Blood Pressure 100/65 115/61 Pulse Oximetry 99 100 Oxygen Delivery Room Air 06/16/22 05:42 Temperature 36.6 C Pulse Rate 62 Respiratory Rate 20 Blood Pressure 114/50 L Pulse Oximetry 98 Oxygen Delivery Intake/Output Intake/Output: Intake & Output 06/13/22 06/14/22 06/15/22 06/16/22 23:59 23:59 23:59 23:59 Intake Total 2400 1840 1900 540 Output Total 4 0 5 Balance 2396 1840 1900 535 Meds/Results Medications: Active Medications Generic Name Dose Route Start Last Admin Trade Name Freq PRN Reason Stop Dose Admin Acetaminophen 500 mg 06/15/22 13:05 Acetaminophen 500 Mg Tablet PO Q4H PRN Mild Pain (1-3) or Fever Alprazolam 0.5 mg 06/12/22 20:20 Alprazolam (*Crx) 0.5 Mg Tablet PO DAILY PRN Anxiety Bupropion HCl 300 mg 06/13/22 09:00 06/16/22 08:48 Bupropion Hcl Xl (24 Hr) 150 Mg Tabcr PO 300 mg QAM GHAZAL Administration Duloxetine HCl 60 mg 06/13/22 09:00 06/16/22 08:48 Duloxetine Hcl 60 Mg Capsule.Dr PO 60 mg DAILY GHAZAL Administration Fentanyl Citrate 25 mcg 06/12/22 17:53 06/12/22 19:04 Fentanyl Citrate Inj (*Crx) 100 Mcg/2 Ml Vial IV PUSH 25 mcg Q4H PRN Administration Pain Rated 7-10 Piperacillin Sod/Tazobactam 100 mls @ 200 mls/hr 06/15/22 12:00 06/16/22 06:02 Sod 4.5 gm/ Sodium Chloride IVPB Infused Q6HR GHAZAL Infusion Levothyroxine Sodium 75 mcg 06/13/22 06:30 06/16/22 05:32 Levothyroxine Sodium 75 Mcg Tablet PO 75 mcg DAILY@0630 GHAZAL Administration Melatonin 5 mg 06/15/22 21:00 06/15/22 22:36 Melatonin 5 Mg Tablet PO 5 mg HS GHAZAL Administration Ondansetron HCl 4 mg 06/12/22 17:53 Ondansetron Inj 4 Mg/2 Ml Vial IV PUSH Q6H PRN Nausea And Vomiting Pantoprazole Sodium 40 mg 06/13/22 09:00 06/16/22 08:48 Pantoprazole 40 Mg Tablet PO 40 mg QAM GHAZAL Administration Potassium Chloride 60 meq 06/14/22 09:00 06/16/22 08:47 Potassium Chloride 20 Meq Packet (For Liquid) PO 60 meq DAILY GHZAAL Administration Rosuvastatin Calcium 20 mg 06/13/22 09:00 06/16/22 08:48 Rosuvastatin 10 Mg Tablet PO 20 mg DAILY GHAZAL Administration Timolol Maleate 1 drop 06/13/22 09:00 06/16/22 08:48 Timolol Maleate 0.5% Op Soln 5 Ml Bottle EACH EYE 1 drop Q12HR GHAZAL Administration Radiology Results: ITS Impressions Chest X-Ray 06/12/22 20:50 IMPRESSION: 1. No acute cardiopulmonary disease. Catheter Placement CT 06/13/22 15:33 IMPRESSION: 1. Successful CT-guided perisigmoid abscess drainage. 2. 1 mL opaque, [place] fluid was sent for aerobic and anaerobic cultures. Abdomen/Pelvis CT 06/16/22 11:01 IMPRESSION: 1. Sigmoid diverticulitis with drain passing through the perisigmoid abscess into the sigmo
--- NOTE | 2022-06-16 12:10 | PM.DS ---
DS: Admitting Diagnosis Discharge Date 06/16/2022 Admitting Diagnosis Diverticulitis with perforation and abscess DS: Discharge Diagnosis Discharge Diagnosis (1) Diverticulitis of intestine with perforation and abscess: Code(s): K57.80 - Diverticulitis of intestine, part unspecified, with perforation and abscess without bleeding Status: Acute (2) Abnormal urinalysis: Code(s): R82.90 - Unspecified abnormal findings in urine Status: Acute (3) Hypokalemia: Code(s): E87.6 - Hypokalemia Status: Acute (4) High blood pressure: Code(s): I10 - Essential (primary) hypertension Status: Acute (5) Hypothyroid: Code(s): E03.9 - Hypothyroidism, unspecified Status: Acute (6) High cholesterol: Code(s): E78.00 - Pure hypercholesterolemia, unspecified Status: Acute (7) Glaucoma: Code(s): H40.9 - Unspecified glaucoma Status: Acute (8) Insomnia: Code(s): G47.00 - Insomnia, unspecified Status: Acute Assessment and Plan: DS: Summary Hospital Course Reason for hospitalization: Diverticulitis with perforation and abscess Hospital Course: 67-year-old female was transferred here from [facility] in [facility] due to a ruptured diverticulitis with abscess. Patient has a history of diverticulosis, hypothyroid, glaucoma, and hyperlipidemia. Patient was given IV Zosyn and was admitted to [facility] 06/12/2022. General surgery was consulted and the patient had CT-guided percutaneous drain placed on 06/14/2022. Patient was continued on IV Zosyn. Patient had mild abdominal pain after surgery that gradually resolved. On day of discharge patient did not have any pain in her abdomen. On admission patient had elevated CRP of 23 and on day of discharge CRP was trending down. Patient had repeat abdomen pelvis CT on 06/16/2022 and it did not reveal any residual drainable fluid. Drain was removed by Dr. Patrick. General surgery agreed that patient is able to go home on p.o. antibiotics and follow up as an outpatient. Patient agrees with discharge plans. I plan to monitor sensitivity of wound culture and adjust antibiotics as needed. Time Spent with Patient Time attestation: Total time spent providing and/or coordinating discharge services: Time spent: Greater than 30 minutes Exam Narrative: HENMT: moist mucous membranes EYES: EOM intact b/l NECK: no lymphadenopathy RESPIRATORY: clear to auscultation CARDIO: RRR GI: soft, no tenderness, bowel sounds present SKIN: no rashes EXTREMITIES: no edema, redness or tenderness DS: Data Data Completed and Pending Labs on day of discharge: Labs from last 24 hours 06/16/22 06/16/22 07:20 07:15 WBC 6.6 RBC 3.17 L Hgb 9.4 L Hct 29.5 L MCV 93.1 MCH 29.7 MCHC 31.9 L RDW 13.8 Plt Count 312 MPV 10.0 Immature Gran % (Auto) 0.5 Neut % (Auto) 72.1 Lymph % (Auto) 14.7 L [place] % (Auto) 9.8 H Eos % (Auto) 2.1 Baso % (Auto) 0.8 Lymph # (Auto) 0.97 [place] # (Auto) 0.7 H Eos # (Auto) 0.1 Baso # (Auto) 0.1 Abs Immat Gran (auto) 0.03 Absolute Neuts (auto) 4.8 Absolute Nucleated RBC 0.0 Nucleated RBC % 0.0 C-Reactive Protein 19.8 H Preliminary micro results at discharge 06/13/22 15:26 Anaerobic Culture - Preliminary Abscess Bacteroides fragilis group Aerobic Culture - Preliminary Escherichia Coli 06/12/22 18:30 Blood Culture - Preliminary Blood 06/12/22 18:30 Blood Culture - Preliminary Blood Discharge Plan Discharge Attending physician on discharge: José Cid Consulting providers: Stacey Patrick Discharging Clinician: Jacquelyn Dunn Anticipated Discharge Date/Time: 06/16/22 14:00 Patient Disposition: Home, Self-Care Activity: other - see discharge instructions Diet: low fiber Discharge Instructions: Take antibiotics as prescribed May take [id number]
[2022-06-16] MEDS: ALPRAZolam (*CRX) 0.5 MG TABLET PO (12:32)
[2022-06-16] MEDS: ACETAMINOPHEN 500 MG TABLET PO (12:32)
[2022-06-16 14:10] VITALS: BP 102/60; PULSE 66; RESP 14; TEMP 36.6; O2SAT 96
--- NOTE | 2022-06-24 10:16 | PC.NURSE ---
E coli is susceptible to Levofloxacin. MRSA is intermediate susceptible to Levofloxacin. IGLESIA Zamora aware.
== END 2022-06-16 16:00 | disposition home or self-care (01) | DRG 392 ==
PROVIDERS: Internal Medicine Critical Care Medicine; Nurse Practitioner; Surgery; Admitting Provider Family Medicine; PCP Family Medicine; Visit Provider Internal Medicine
DX: K57.20 Diverticulitis of large intestine with perforation and abscess without bleeding (principal); I10 Essential (primary) hypertension; E03.9 Hypothyroidism, unspecified; E78.00 Pure hypercholesterolemia, unspecified; H40.9 Unspecified glaucoma; R82.90 Unspecified abnormal findings in urine; F41.9 Anxiety disorder, unspecified; I95.9 Hypotension, unspecified; G47.00 Insomnia, unspecified; E87.6 Hypokalemia; Z80.1 Family history of malignant neoplasm of trachea, bronchus and lung; Z82.49 Family history of ischemic heart disease and other diseases of the circulatory system; Z87.891 Personal history of nicotine dependence; Z79.899 Other long term (current) drug therapy; Z85.72 Personal history of non-Hodgkin lymphomas; Z92.21 Personal history of antineoplastic chemotherapy; Z92.3 Personal history of irradiation
CPT/HCPCS: 36415; 71045; 74177; 75989; 80048; 80053; 81001; 83605; 83735; 84439; 84443; 84480; 85025; 85027; 85049; 85610; 85730; 86140; 86850; 86900; 86901; 87040; 87070; 87075; 87076; 87077; 87086; 87147; 87181; 87186; 87205; 93005; 96365; 96366; 96375; A9270; C1729; C1769; G0378; G0379; J2250; J2543; J3010; J7040; J7042; Q9967

== ENCOUNTER → 2022-09-22 12:46 | Outpatient (CLI) | payer MEDICARE, BC, SELFPAY ==
--- NOTE | ~2022-09-22 | MM_ITS ---
EXAMINATION: MM screening logan BI w sher HISTORY: Screening mammogram TECHNIQUE: Craniocaudal and mediolateral oblique 3-D tomosynthesis images were obtained and synthetic 2-D images were generated. CAD analysis was submitted and interpreted. COMPARISON: 01/02/2021, bilateral screening mammogram examinations BREAST PARENCHYMAL COMPOSITION: There are scattered areas of fibroglandular density. FINDINGS: There is no evidence of suspicious mass, calcification, or architectural distortion to sugg est malignancy in either breast. There has been no suspicious interval change. IMPRESSION: 1. No mammographic evidence of malignancy. 2. Recommend routine screening mammography in one year. BI-RADS Category 1: Negative Reviewed, dictated and finalized at location A. MIC PAINTER
== END ==
PROVIDERS: PCP Family Medicine; Visit Provider Physician Assistant
DX: Z12.31 Encounter for screening mammogram for malignant neoplasm of breast (principal)
CPT/HCPCS: 77063; 77067

== ENCOUNTER 2023-03-16 09:15 | Emergency (ER) | payer MEDICARE, BC, SELFPAY ==
[2023-03-16 09:27] VITALS: BP 146/81; PULSE 95; RESP 18; TEMP 36.6; O2SAT 95
--- NOTE | 2023-03-16 10:39 | ED.EYEPROB ---
HPI - Eye Problem General Chief complaint: Eye Problems <LALITHA Prasad Last Filed: 03/16/23 18:12> Stated complaint: Left eye injury <LALITHA Prasad Last Filed: 03/16/23 18:12> Time Seen by Provider: 03/16/23 09:54 <LALITHA Prasad Last Filed: 03/16/23 18:12> Source: patient <LALITHA Prasad Last Filed: 03/16/23 18:12> Mode of arrival: ambulatory <LALITHA Prasad Last Filed: 03/16/23 18:12> Limitations: no limitations <LALITHA Prasad Last Filed: 03/16/23 18:12> History of Present Illness HPI Narrative: This is a 68-year-old female who presents to the ED with chief complaint of a left eye injury that occurred just prior to arrival. Patient states she was taking her dog to the vet when the dog became anxious. Patient states the dog jumped around and accidentally scratched her left eye with his paw. She reports swelling and mild pain to the area. Reports her vision is intact in the eye. Denies any further complaints. <LALITHA Prasad Last Filed: 03/16/23 18:12> Related Data Home medications: Home Medications Medication Instructions Recorded Confirmed alprazolam 0.5 mg tablet 0.5 mg PO DAILY PRN Anxiety 12/25/21 07/04/22 timolol maleate 0.5 % eye drops 1 drp EACH EYE BID 05/22/22 07/04/22 <ALLITHA Prasad Last Filed: 03/16/23 18:12> Allergies/adverse reactions: Allergies Allergy/AdvReac Type Severity Reaction Status Date / Time SURGICAL TAPE Allergy RASH AND Uncoded 03/16/23 09:17 ITCHING <LALITHA Prasad Last Filed: 03/16/23 18:12> Review of Systems Review of Systems: All systems as dictated in HPI <LALITHA Prasad Last Filed: 03/16/23 18:12> [facility] Past Medical History Medical History: Medical History Acid reflux Degenerative disc disease, lumbar Depression Diverticulosis history of diverticulitis Glaucoma History of non-Hodgkin's lymphoma treated with chemotherapy and radiation 1996 Hyperlipidemia Hypertension Hypothyroidism <Mike Banks PA-C - Last Filed: 03/16/23 18:12> Surgical History Surgical History: Surgical History H/O left knee surgery meniscus tear 02/2012 History of biopsy neck mass 07/1996 History of bladder surgery bladder suspension 12/2010 History of carpal tunnel surgery 2009 History of cholecystectomy 02/2016 History of tonsillectomy and adenoidectomy 1960 <Mike Banks PA-C - Last Filed: 03/16/23 18:12> Family History Family History: Family History Father Family history of heart disease in male family member before age 55 Mother Lung cancer High cholesterol Cerebrovascular accident <Mike Banks PA-C - Last Filed: 03/16/23 18:12> Social History Social History: Social History Social History: The patient is 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 The patient occasionally drinks alcohol. She has 2 children. The patient quit smoking in 1985. 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 Code status full code Smoking packs per day: 1 Smoking cigarettes per day: 20.0 Years smoked: 10 Smoking pack-years: 10.00 Smoking status: Former smoker Tobacco type: cigarettes Alcohol intake: current Drinks per week: 1 Substance use: never Substance use type: does not use Lack of Transportation: No Lack of Food: Never True Current Housing: I Have Housing Concerned About Future Housing: No Difficulty Paying Gas/Electric Bills: No Difficulty Paying for Meds: No Currently Unemployed: No Education: Associate Degree Difficulty w/ Childcare or Family Care: No Living arrangements: with family Occupation/Education: occupation Additional occ
[2023-03-16 12:04] VITALS: BP 130/71; RESP 16; O2SAT 100
== END 2023-03-16 13:33 | disposition short-term general hospital (02) ==
PROVIDERS: Emergency Provider Physician Assistant; PCP Family Medicine
DX: S01.112A Laceration without foreign body of left eyelid and periocular area, initial encounter (principal); I10 Essential (primary) hypertension; E03.9 Hypothyroidism, unspecified; E78.5 Hyperlipidemia, unspecified; H40.9 Unspecified glaucoma; K21.9 Gastro-esophageal reflux disease without esophagitis; M51.36 Other intervertebral disc degeneration, lumbar region; M48.061 Spinal stenosis, lumbar region without neurogenic claudication; Z85.72 Personal history of non-Hodgkin lymphomas; Z87.891 Personal history of nicotine dependence; Z90.49 Acquired absence of other specified parts of digestive tract; W54.1XXA Struck by dog, initial encounter
CPT/HCPCS: 99283; 99285

== ENCOUNTER → 2023-08-31 15:05 | Outpatient (CLI) | payer MEDICARE, BC, SELFPAY ==
--- NOTE | ~2023-08-31 | XR_ITS ---
EXAM: XR hand LT min 3V, XR hand RT min 3V DATE: 08/31/2023 15:40 HISTORY: M25.50 - Pain in unspecified joint . COMPARISON: X-ray left first finger 05/05/2022; x-ray left hand 03/14/2020. FINDINGS: Normal mineralization. No fracture or dislocation. No lytic or blastic lesion. Status post left trapezium resection. Scattered arthritic changes typical of osteoarthritis, severe at the right trapeziometacarpal joint with less advanced changes in the interphalangeal joints of the fingers and thumbs, and even more mild changes in several MCP joints and the left DRUJ. No erosion or periosteal change. Soft tissues within normal limits. IMPRESSION: Polyarticular osteoarthritis of the hands, severe in the right trapeziometacarpal joint. Status post left trapezium resection. Reviewed, dictated and finalized at [facility]. NSIVE CARE NURSE IMPRESSION: Polyarticular osteoarthritis of the hands, severe in the right trap eziometacarpal joint. Status post left trapezium resection.
== END ==
PROVIDERS: PCP Physician Assistant; Visit Provider Physician Assistant
DX: M19.041 Primary osteoarthritis, right hand (principal); M19.042 Primary osteoarthritis, left hand
CPT/HCPCS: 73130

== ENCOUNTER 2023-11-20 11:09 | Outpatient (CLI) | payer MEDICARE, BC, SELFPAY ==
--- NOTE | ~2023-11-20 | XR_ITS ---
EXAMINATION: XR hip LT min 2V DATE: 11/20/2023 11:45 INDICATION: Left hip pain TECHNIQUE: Anteroposterior and frog-leg lateral views of the left hip were obtained. COMPARISON: None. FINDINGS: Alignment is normal. No fracture or suspected avascular necrosis. Left hip joint space is normal. Mil d osteoarthritis at the bilateral sacroiliac joints. There are few phleboliths in the pelvis. Soft ti ssues are otherwise unremarkable. IMPRESSION: 1. Mild bilateral sacroiliac osteoarthritis. Normal left hip. Reviewed, dictated and finalized at location A.
== END 2023-11-20 11:10 ==
PROVIDERS: PCP Physician Assistant; Visit Provider Physician Assistant
DX: M25.552 Pain in left hip (principal); M53.3 Sacrococcygeal disorders, not elsewhere classified
CPT/HCPCS: 73502

== ENCOUNTER 2023-12-19 11:29 | Outpatient (CLI) | payer MEDICARE, BC, SELFPAY ==
--- NOTE | ~2023-12-19 | MR_ITS ---
EXAMINATION: MR lumbar spine wo con DATE: 12/19/2023 12:11 INDICATION: Lumbar radiculopathy. Low back pain. Bilateral leg pain. TECHNIQUE: Magnetic resonance imaging (MRI) of the lumbar spine was performed without intravenous con trast. Sequences included sagittal T2-weighted FSE, sagittal T2-weighted FS FSE, sagittal T1-weighted FSE, and axial T2-weighted FSE. COMPARISON: Lumbar spine MRI 12/20/2020 FINDINGS: There is 6 degrees dextrocurvature of lumbar spine. There is mild chronic anterior wedging of T11-L1 vertebral bodies. There is 3 mm retrolisthesis of L3 on L4 and 4 mm anterolisthesis of L5 o n S1. There is moderately decreased disc height at L1-L2 and L2-L3 and severely decreased disc height from L3-L4 through L5-S1. The distal spinal cord signal intensity is normal. The conus medullaris is at T12-L1. The following disc levels are specifically discussed: L1-L2: The disc is bulging and has an annular fissure. There is mild bilateral facet joint osteoarthr itis. There is mild bilateral neural foraminal stenosis. There is mild central canal stenosis. L2-L3: The disc is bulging. There is mild bilateral facet joint osteoarthritis. There is mild bilater al neural foraminal stenosis. There is mild central canal stenosis. L3-L4: The disc is bulging with superimposed central extrusion. There is moderate bilateral facet tamra nt osteoarthritis. There is moderate bilateral neural foraminal stenosis. There is mild central canal stenosis. L4-L5: The disc is bulging and has an annular fissure. There is severe bilateral facet joint osteoart hritis. There is moderate right and mild left neural foraminal stenosis. There is mild central canal stenosis. L5-S1: The disc is bulging and has an annular fissure. There is severe bilateral facet joint osteoart hritis. There is mild bilateral neural foraminal stenosis. There is mild central canal stenosis. IMPRESSION: 1. Severe lumbar spondylosis, mildly worsened from 12/20/2020. Reviewed, dictated and finalized at location A.
== END 2023-12-19 11:30 ==
LOC: MICIMG 11:31
PROVIDERS: PCP Physician Assistant; Visit Provider Nurse Practitioner Family
DX: M54.16 Radiculopathy, lumbar region (principal); M43.06 Spondylolysis, lumbar region
CPT/HCPCS: 72148

== ENCOUNTER 2024-02-01 09:41 | Outpatient (CLI) | payer MEDICARE, BC, SELFPAY ==
--- NOTE | ~2024-02-01 | MR_ITS ---
Procedure: MR thoracic spine wo con Ordering provider: Esther Sarah, [employer] History: . LUMBAR RADICULOPATHY,for scs lumbar trial . Comparison: None. Technique: MRI thoracic spine without contrast. FINDINGS: SPINAL CORD: Normal. VERTEBRAL BODIES: Normal height and alignment. No compression fracture. Normal marrow signal. DISK SPACES: Narrowing of the disc spaces at multiple levels. Disc protrusion is seen at the level of T10/T11. Disc bulge seen at the level of T9-T10 Mild disc bulge at the level of T5-T6, T6-T7, T7-T8 and T8-T9. STENOSIS: None. PARASPINOUS SOFT TISSUES: Normal. IMPRESSION: No compression fracture or stenosis of the thoracic spine. Multilevel disc bulges. Disc protrusion at the level of T10/T11. Reviewed, dictated and finalized at location A.
== END 2024-02-01 09:42 ==
LOC: GOSHIMG 09:45
PROVIDERS: PCP Physician Assistant; Visit Provider Nurse Practitioner Family
DX: M54.16 Radiculopathy, lumbar region (principal); M51.26 Other intervertebral disc displacement, lumbar region
CPT/HCPCS: 72146

== ENCOUNTER 2024-02-26 09:12 | Outpatient (CLI) | payer MEDICARE, BC, SELFPAY ==
--- NOTE | ~2024-02-26 | CT_ITS ---
EXAMINATION: CT sinus wo con DATE: 02/26/2024 09:25 INDICATION: Acute recurrent maxillary sinusitis TECHNIQUE: Computed tomography (CT) of the paranasal sinuses was performed without intravenous contra st. The dose-length product was 392.92 mGy-cm. Automated exposure control and iterative reconstructio n technique were employed. COMPARISON: None FINDINGS: No significant sinus disease. No air-fluid levels. Leftward nasal septal deviation. Ostiome atal units are patent. No mucoperiosteal reaction. Mastoids are pneumatized. IMPRESSION: 1. No significant sinus disease. Reviewed, dictated and finalized at location B.
== END 2024-02-26 09:13 ==
LOC: GOSHIMG 09:13
PROVIDERS: PCP Family Medicine; Visit Provider Otolaryngology
DX: J01.01 Acute recurrent maxillary sinusitis (principal)
CPT/HCPCS: 70486

== ENCOUNTER 2024-03-07 08:10 | Outpatient (CLI) | payer MEDICARE, BC, SELFPAY | END 2024-03-07 08:11 | disposition home or self-care (01) | LOC: ANHAUDASC 08:10 | PROVIDERS: PCP Family Medicine; Visit Provider Otolaryngology | DX: H69.92 Unspecified Eustachian tube disorder, left ear (principal); H90.3 Sensorineural hearing loss, bilateral | CPT/HCPCS: 92557; 92567 ==

== ENCOUNTER 2024-03-28 12:15 | Outpatient (CLI) | payer MEDICARE, BC, SELFPAY ==
--- NOTE | 2024-03-28 12:58 | ECG_ITS ---
Test Date: 2024-03-28 13:08:04 Measurements Intervals [place] Rate: 73 P: 56 CT: 131 QRS: 9 QRSD: 87 T: 20 QT: 380 QTc: 421 Interpretive Statements SINUS RHYTHM No previous ECG available for comparison Electronically Signed On 03-29-2024 15:25:45 CDT by Nargis Desir M.D.
[2024-03-28 13:06] LABS: Basophils Absolute Auto 0.1 K/mm3 (0.0-0.1); Basophils Percent Auto 1.3 % (0.2-1.2); Eosinophils Absolute Auto 0.2 K/mm3 (0-0.3); Eosinophils Percent Auto 3.4 % (0-4.4); Hemoglobin 13.1 g/dL (12.0-15.0); Immature Granulocyte Absolute 0.02 K/mm3 (0.00-0.031); Immature Granulocyte Percent A 0.4 % (0-0.5); Lymphocytes Absolute Auto 1.38 K/mm3 (0.9-3.2); Lymphocytes Percent Auto 26.3 % (18.3-44.2); Mean Corpuscular Hemoglobin 29.2 pg (26-34); Mean Corpuscular Volume 91.3 fl (80-100); Monocytes Absolute Auto 0.5 K/mm3 (0.1-0.6); Monocytes Percent Auto 9.9 % (2.6-8.5); Neutrophils Absolute Auto 3.1 K/mm3 (1.3-6.7); Neutrophils Percent Auto 58.7 % (45.5-73.1); Platelet Count Result 203 k/mm3 (150-375); Red Blood Count 4.49 M/mm3 (4.2-5.4); Red Cell Distribution Width 14.6 % (11.5-14.5); White Blood Count 5.2 K/mm3 (4.5-10.0)
[2024-03-28 13:36] LABS: Alanine Aminotransferase 23 U/L (6-35); Albumin Level 4.4 g/dL (3.5-5.1); Alkaline Phosphatase 86 U/L (38-126); Anion Gap 9 mmol/L (4-12); Aspartate Amino Transferase 35 U/L (14-36); Bilirubin,Total 0.4 mg/dL (0.2-1.3); Blood Urea Nitrogen 10 mg/dL (7-17); CRP < 0.5 mg/dL (<1.0); Calcium 9.8 mg/dL (8.4-10.2); Carbon Dioxide 29 mmol/L (22-30); Chloride 100 mmol/L (98-107); Estimated Glomerular Filt Rate > 60; Glucose 96 mg/dL (65-110); Potassium 4.7 mmol/L (3.4-5.0); Sodium 138 mmol/L (137-145)
[2024-03-28 13:40] LABS: Add Urine Microscopic? YES; Appearance Urine Clear (Clear); Bacteria Urine None Seen /hpf; Bilirubin Urine Negative (Negative); Blood Urine Negative (Negative); Color Urine Yellow (Yellow); Glucose Urine UA Negative (Negative); Ketones Urine Negative (Negative); Leukocyte Esterase Ur 1+ LEU/UL (Negative); Need Manual Microscopic Reviewed; Nitrate Urine Negative (Negative); Non Pathogenic Casts 0-2; Protein Urine Negative (Negative); RBC Urine 0-2 /hpf (0-2); Specific Grav Ur 1.007 (1.001-1.035); Squamous Epithelial Cell Urine None Seen /hpf (Few); Urobilinogen Urine 0.2 mg/dL (<2.0); WBC Urine 0-5 /hpf (0-3); pH Urine 7.5 (5.0-9.0)
[2024-03-28 16:47] LABS: Erythrocyte Sedimentation Rate 19 mm/hr (0-20)
== END 2024-03-28 12:16 | disposition home or self-care (01) ==
LOC: ANHLAB 12:29
PROVIDERS: PCP Family Medicine; Visit Provider Nurse Practitioner Family
DX: Z01.818 Encounter for other preprocedural examination (principal); Z79.899 Other long term (current) drug therapy
CPT/HCPCS: 36415; 80053; 81001; 85025; 85652; 86140; 93005

== ENCOUNTER 2024-09-01 16:27 | Outpatient (CLI) | payer MEDICARE, BC, SELFPAY ==
--- NOTE | ~2024-09-01 | US_ITS ---
EXAMINATION: US carotid duplex BI DATE: 09/01/2024 16:55 INDICATION: Right carotid bruit TECHNIQUE: Grayscale, color Doppler, and pulsed Doppler images of the cervical carotid arteries were obtained. The degree of vessel stenosis is placed in one of the following categories: normal, <50%, 5 0-69%, >=70% but less than near-occlusion, near-occlusion, or total occlusion. Note that percent sten osis relative to normal distal artery lumen diameter is indirectly measured from velocity measurement s as described by Ronak, et al. Radiology 2003; 229:340-346. COMPARISON: None. FINDINGS: RIGHT: The right common carotid artery (CCA) peak systolic velocity (PSV) is 65 cm/s. The right internal car otid artery (ICA) PSV is 125 cm/s. The right ICA end-diastolic velocity (EDV) is 47 cm/s. The right I CA/CCA PSV ratio is 1.9. Grayscale and color Doppler images yield an estimate of 50-69% diameter redu ction from plaque in the ICA. The external carotid artery (ECA) PSV is 101 cm/s. There is antegrade f low in the right vertebral artery. LEFT: The left CCA PSV is 90 cm/s. The left ICA PSV is 120 cm/s. The left ICA EDV is 25 cm/s. The left ICA/ CCA PSV ratio is 1.3. Grayscale and color Doppler images yield an estimate of <50% diameter reduction from plaque in the ICA. The ECA PSV is 53 cm/s. There is antegrade flow in the left vertebral artery . IMPRESSION: 1. 50-69% stenosis in the right internal carotid artery. 2. <50% stenosis in the left internal carotid artery. Reviewed, dictated and finalized at location B. INSPECTOR
--- OUTSIDE RECORDS SUMMARY | 2024-09-01 16:31 | XMS_ITS | Clinical Summary ---
Author Organization [facility] Address [address] [place] [address]. [place] [address] [place] [address] Care Team Providers Care Performance Improvement Manager Name Role Phone Didier Lu MD Primary Care Provider [phone] Allergies Active Allergy Reactions Criticality Noted Date Comments Tape Rash Low 06/12/2022 Medications DULoxetine (CYMBALTA) 60 MG capsule Take 60 mg by mouth daily. Active buPROPion XL (WELLBUTRIN XL) 300 MG 24 hr tablet Take 300 mg by mouth daily. Active rosuvastatin (CRESTOR) 20 MG tablet Take 20 mg by mouth nightly at bedtime. Active levothyroxine (SYNTHROID) 75 MCG tablet Take 75 mcg by mouth every morning. Active pantoprazole EC (PROTONIX) 40 MG tablet Take 40 mg by mouth daily. Active timolol hemihydrate (BETIMOL) 0.25 % ophthalmic solution 1-2 drops 2 (two) times daily. 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 Gender Identity Not on file Sexual Orientation Not on file Last Filed Vital Signs Vital Sign Reading Time Taken Comments Blood Pressure 128/65 06/12/2022 3:46 PM MULTI SLIDE MACHINE TENDER Pulse 96 06/12/2022 3:46 PM MULTI SLIDE MACHINE TENDER Temperature 36.4 ??C (97.5 ??F) 06/12/2022 3:46 PM CS T Respiratory Rate 16 06/12/2022 3:46 PM MULTI SLIDE MACHINE TENDER Oxygen Saturation 99% 06/12/2022 3:46 PM MULTI SLIDE MACHINE TENDER Inhaled Oxygen Concentration - - Weight 54.4 kg (120 lb) 06/12/2022 12:13 PM MULTI SLIDE MACHINE TENDER Height 160 cm (5' 3 ) 06/12/2022 12:13 PM MULTI SLIDE MACHINE TENDER Body Mass Index 21.26 06/12/2022 12:13 PM MULTI SLIDE MACHINE TENDER Plan of Treatment Health Maintenance Due Date Last Done Comments Colorectal Cancer Screening Colonoscopy (10 Years) 1957 Hepatitis C 1975 Mammogram Screening 1997 Annual Medicare Wellness Visit 2022 Dexa Scan (General) 2022 Pneumococcal Vaccine: 65+ Years (1 of 1 - PCV) 2022 DTaP, Tdap and Td Vaccines (2 - Td or Tdap) 05/31/2023 05/31/2013, 01/02/2012, 08/03/2011 COVID-19 Vaccine ( season) 2024 07/08/2021, 10/20/2020, 09/29/2020 Influenza Adult (#1) 2024 04/18/2022, 05/28/2021, 05/20/2020, Additional history exists RSV Immunization or 60+ Years (1 - 1-dose 75+ series) 01/13/2032 Zoster Vaccines Completed 09/30/2021, 06/24/2021 Meningococcal B Vaccine Aged Out No l onger eligible based on patient's age to complete this topic Meningococcal Vaccine Aged Out No michelle khoi eligible based on patient's age to complete this topic RSV Immunizations Under 20 Months Aged Out No longer eligible based on patient's age to complete this topic Insurance [facility] MEDICARE Care Teams Performance Improvement Manager Relationship Specialty Start Date End Date Didier Lu MD [address] [place] [id number] PCP - General FAMILY PRACTICE 06/12/22
--- OUTSIDE RECORDS SUMMARY | 2024-09-01 16:31 | XMS_ITS | Patient Health Record ---
Author Organization [facility] Address [address] [place] [address] Care Team Providers Care Creative Services Intern Name Role Phone Aly VELEZ, Didier Primary Care Provider Unavailab Lucian Galvez Unavailable [phone] [employer], Provider Unavailable Unavailab le Allergies No Known Allergies Reason For Referral No Information Medications Medication SIG (Take, Route, Frequency, Duration) Notes Start Date End Date Status PANTOPRAZOLE 40 mg 1 tab(s) orally once a day Active BUPROPION 150 mg/12 hours 1 tab(s) orall y 2 times a day Active ROSUVASTATIN 10 mg 1 tab(s) orally once a day Active OMEPRAZOLE 20 mg 1 cap(s) orally once a day Active DULoxetine HCl 20 MG 1 cap(s) orally 2 t imes a day Active Synthroid 25 MCG 1 tab(s) orally once a day Active DULOXETINE 20 mg 1 cap(s) orally 2 ti mes a day Active SYNTHROID 25 mcg (0.025 mg) 1 tab(s) ora lly once a day Active Montelukast Sodium 10 MG 1 tab(s) orally once a day for 30 day(s) Active ATENOLOL 25 mg 1 tab(s) orally once a day Active Fluticasone Propionate 50 MCG/ACT 2 spray(s) in each nostril BID for 30 day(s) Active Cetirizine HCl 10 MG 1 tab(s) orally BID for 30 days Active Pepcid 20 MG 1 tab(s) orally 1 ti me a day for 30 days Active MONTELUKAST 10 mg 1 tab(s) orally once a day for 30 day(s) Active ALPRAZOLAM 1 mg 1 tab(s) orally ever y 8 hours Active FLUTICASONE NASAL 50 mcg/inh 2 spray(s) in each nostril BID for 30 day(s) Active PEPCID 20 mg 1 tab(s) orally 1 ti me a day for 30 days Active CETIRIZINE 10 mg 1 tab(s) orally BID for 30 days Active MONTELUKAST 10 mg 1 tab(s) orally once a day for 30 day(s) Active Montelukast Sodium 10 MG 1 tab(s) orally once a day for 30 day(s) Active ALPRAZolam 1 MG 1 tab(s) orally ever y 8 hours Active Atenolol 25 MG 1 tab(s) orally once a day Active Rosuvastatin Calcium 10 MG 1 tab(s) oral ly once a day Active Omeprazole 20 MG 1 cap(s) orally once a day Active Pantoprazole Sodium 40 MG 1 tab(s) orall y once a day Active buPROPion HCl ER (SR) 150 MG 1 tab(s) orally 2 times a day Active Immunizations Vaccine Route Administration Date Status Comme nts Influenza Unknown 07/09/2022 Administered Portal [facility] [place] NOC Tdap Unknown 03/18/2017 Administered Portal Infor [place] Social History Tobacco Use: Social History Observation Description Date Details (start date - stop date) Former Smoker NA - 08/03/1984 Smoking Smart Form: Question Answer Notes Are you a: former smoker When did you stop smoking? 08/03/1984 Problems Problem Type SNOMED Code ICD Code Onset Dates Problem Status W/U Status Risk Notes Problem Chronic rhinitis (84976336) Chronic rhinitis (J31.0) Active confirmed Problem Hypertrophy of nasal turbinates (56765499) Hypertrophy of nasal turbinates (J34.3) Active confirmed Problem Urticaria (574286477) Other urticaria (L50.8) Active confirmed Problem Dermatographic urticaria (5692496) Dermatographic urticaria (L50.3) Active confirmed Problem Dysphagia (59633978) Dysphagia, unspecified (R13.10) Active confirmed Problem Elevated blood pressure reading without diagnosis of hypertension (431216329) Elevated blood-pressure reading, without diagnosis of hypertension (R03.0) Active confirmed Encounters Encounter Location Date Provider Diagnosis [address] [address] 01/16/2024 Provider [facility] Hypertrophy of nasal turbinates J34.3 and Other urticaria L50.8 Assessments Encounter Date Diagnosis (ICD Code) Assessment Notes Treatment Notes Treatment Clinical Notes Section Notes 01/16/2024 Hypertrophy of nasal turbinates (ICD-10 - J34.3) 01/16/2024 Other urticaria (ICD-10 - L50.8) Plan Of Treatment No Information Insurance Providers Payer Name Payer Address Payer Phone Subscriber Number Group Number Insured Name Patient Relationship to Insured Coverage Start Date Coverage End Date [employer] (Medicare) Attention Claims [address] [place] [address] [id number] Adrianna Cadena Self - patient is the insured [facility] [address] [place] [address] [id number] Sina Cadena Spouse - patient is the spouse of the insured Medical (General) History Surgical History Surgery Date(Month/Year) Tonsils and adnoids Bilateral carpal tunnel and trigger fing ers Bladder suspension 12/02/2010 Torn meniscus 02/18/2012 Gallbladder removed 02/14/2016 Hospitalization History Reason Date(Month/Year) Non hodgdins lymphoma 06/17/1996 Diverticulitis/sepsis/ruptured intestine 06/16/2022
--- OUTSIDE RECORDS SUMMARY | 2024-09-01 16:32 | XMS_ITS | Clinical Summary ---
Author Organization [facility] ENTER Address [address] [place] [address] Phone Care Team Providers Care Material Coordinator Name Role Phone Didier Lu MD Primary Care Provider [phone] Allergies No known active allergies Medications MULTIPLE VITAMINS-MINERA LS ER PO Take 1 tablet by mouth daily 03/03/2012 Active albuterol 108 (90 Base) MCG/ACT Aerosol Solution take 2 Puffs by inhalation. 07/28/2018 Active buPROPion (WELLBUTRIN) 300 MG TABLET SR 24 HR XL tablet 04/23/2019 Active Calcium-Vitamin D-Vitamin K 500-100-40 MG-UNT-MCG Chewable Tablet Take 2 tablets by mouth daily 03/03/2012 Active DULoxetine (CYMBALTA) [address] Particles Take 60 mg by mouth. Active fluticasone (FLONASE) 50 MCG/ACT Suspension 2 Sprays by Nasal route. 07/28/2018 Active levothyroxine (SYNTHROID) 75 MCG Tablet Take 75 mcg by mouth. 03/04/2017 Active omeprazole (PRILOSEC) 20 MG CAPSULE DELAYED RELEASE Take 20 mg by mouth. Active Pitavastatin Calcium 4 MG Tablet Take 4 mg by mouth. 08/22/2015 Active RABEprazole (ACIPHEX) 20 MG Tablet Delayed Response Take 20 mg by mouth. Active Travoprost, AMARILIS Free, 0.004 % Solution 1 Drop. 01/04/2013 Active venlafaxine (EFFEXOR) 75 MG Tablet 75 mg. 05/23/2016 Active Social History Tobacco Use Types Packs/Day Years Used Date Smoking Tobacco: Former Cigarettes 1 10 Smokeless Tobacco: Never Alcohol Use Standard Drinks/Week Comments Yes 0 (1 standard drink = 0.6 oz pur e alcohol) social Comments Unknown Sex and Gender Information Value Date Recorded Sex Assigned at Not on file Legal Sex Female 11:43 PM CDT Gender Identity Not on file Sexual Orientation Not on file Last Filed Vital Signs Vital Sign Reading Time Taken Comments Blood Pressure 128/98 06/15/2019 10:13 AM MIRROR PAINTER Pulse 99 06/15/2019 10:13 AM MIRROR PAINTER Temperature 36.2 ??C (97.1 ??F) 06/15/2019 10:[address] Respiratory Rate 14 06/15/2019 10:13 AM MIRROR PAINTER Oxygen Saturation 98% 06/15/2019 10:13 AM MIRROR PAINTER Inhaled Oxygen Concentration - - Weight 59.4 kg (131 lb) 06/15/2019 10:13 AM MIRROR PAINTER Height 160 cm (5' 3 ) 06/15/2019 10:13 AM MIRROR PAINTER Body Mass Index 23.21 06/15/2019 10:13 AM MIRROR PAINTER Plan of Treatment Health Maintenance Due Date Last Done Comments DEXA Bone Density 1955 Hepatitis C Virus (HCV) Screening 1955 Colonoscopy 2002 Colorectal Cancer Screening 2002 Cologuard 2007 Immunochemical Fecal Occult Blood 2007 Mammogram 2007 Pneumococcal Immunization (5 0+ years) (1 of 1 - PCV) 2007 Zoster Immunization (1 of 2) 2007 Influenza Immunization (#1) 2024 05/06/2019 SARS-COV-2 Immunization ( season) 2024 07/08/2021, 10/20/2020, 09/29/2020 Respiratory Syncytial Virus (RSV) Immunization (Adult) (1 - 1-dose 75+ series) 01/13/2032 DTaP/Tdap/Td Immunization Discontinued 05/31/2013 TdaP Immunization Completed 05/31/2013 Hepatitis B Immunization Aged Out No longer eligible based on patient's age to complete this topic Meningococcal Immunization (ACWY) Aged Out No longer eligible based on patient's age to complete this topic Rotavirus Immunization Aged Out No lo nger eligible based on patient's age to complete this topic Insurance [facility] Care Teams Material Coordinator Relationship Specialty Start Date End Date Didier Lu MD [address] [place] [id number] PCP - General Family Medicine 06/15/19
--- OUTSIDE RECORDS SUMMARY | 2024-09-01 16:32 | XMS_ITS | Data Portability ---
Author Organization [place] [facility] [employer], Main Office Address [address] [place] [address] Care Team Providers Care Bakery Worker Conveyor Line Name Role Phone KULDIP PASTOR Primary Care Provider KULDIP PASTOR Referring Provider [phone] Assessment No assessment recorded. Plan of Treatment Reminders Order Date Submit Date Provider Last Modified By Organization Details Last Modified Time Details Appointments None recorded. Lab None recorded. Referral occupationa l therapist referral - ROM, STRENGTHENI NG, THERAPUTTY/ HEP 2022 023 [email or web address] [facility] [place], [place] , [place], [address], 3 13:49:56 Procedures None recorded. Surgeries None recorded. Imaging XR, hand, 3 or more view 2022 023 [email or web address] 3 [facility] [place], [address] [facility] [address], [place], [address], 3 10:23:47 XR, hand, 3 or more view 2022 023 [email or web address] 3 [facility] [place], [address], [place], [address], 3 10:24:34 Medication Orders None recorded. Patient TargetsNo targets recorded. Patient InstructionsNo instructions recorded. Reason for Referral Occupational Therapist Refer ral for Osteoarthrosis of the carpometacarpal joint of the thumb ROM, STRENGTHENING, THERAPUTTY/HEP Referring Physician: Davey Nuñez, Orthopedic Surgery, Encounter Date: 11/04/2022 Results Created Date Observation Date Name Description Value Unit Range Abnormal Flag Note LastModifiedBy Organization Detail LastModifiedTime 05/06/2005/05/2022 XR, finge r(s), 2 or more view No observ ation record ed. [id number] Not Available 10/02/2022 01:25:40 05/20/20 22 05/05/2022 XR, finge r(s), 2 or more view No observ ation record ed. [id number] Not Available 10/02/2022 01:25:40 05/20/20 22 05/05/2022 XR, finge r(s), 2 or more view No observ ation record ed. [id number] Not Available 10/02/2022 01:25:40 11/05/19 23 XR, hand, 3 or more view No observ ation record ed. [email or web address] [facility] [place] [address] [facility] [address], [place], [address], 11/04/2022 09:42:26 01/07/20 23 XR, hand, 3 or more view No observ ation record ed. [email or web address] [facility] [place] [address] [facility] [address], [place], [address], 01/06/2023 10:04:13 Result Notes None recorded. Problems Name Problem SNOMED Code Status Onset Date Resolution Date Notes Provider Name and Address Organization Details Recorded Time Tenosynovi tis of right radial styloid 4276405854178 9100 Active 2021 Not Available [facility] 3 01:24:52 Pain of left hand 2794529827009 03 Active 2021 Not Available [facility] 3 01:24:52 Pain in right hand 4905125189031 09 Active 2021 Not Available [facility] 3 01:24:52 Osteoarthr osis of the carpometac arpal joint of the thumb 73551854 Active 2022 ALISTAIR Treviño null, [place] [facility] [employer] [facility] 3 15:43:45 Arthritis of first carpometac arpal joint of left hand 8637128661946 103 Active 2022 Davey Nuñez MD [address] [facility], [address] [address], [place], [address] , [facility] [employer] [facility] 3 09:42:35 Pain of bilateral hands 4936652181973 9109 Active 2022 GIOVANNI BurgosA null, [facility] [employer] [facility] 3 09:11:26 Acquired trigger finger of right middle finger 7436339032874 05 Active [address] [facility], [facility] [address], [place], [address] , [facility] [employer] [facility] 3 10:04:29 Problem Notes None recorded. Procedures Surgical History Date Name Laterality Status Provider Name and Address Organization Details Recorded Time procedure on urinary bladder completed Not Available [facility] 10/02/2022 01:24:24 Carpal tunnel completed Not Available [facility] 10/02/2022 01:24:24 tonsilectomy/ad enoids completed Not Available [facility] 10/02/2022 01:24:24 Imaging Results Imaging Date Name Status LastModified by Organiz ation Details LastModified Time 05/05/2022 XR, finger(s), 2 or more view completed [id number] Information not available 10/02/2022 01:25:40 05/05/2022 XR, finger(s), 2 or more view completed [id number] Information not available 10/02/2022 01:25:40 05/05/2022 XR, finger(s), 2 or more view completed [id number] Information not available 10/02/2022 01:25:40 11/04/2022 XR, hand, 3 or more view completed [email or web address] [facility] [place] [address], [place], [address], 11/04/2022 09:42:26 01/06/2023 XR, hand, 3 or more view completed [facility] [place] [address] [facility] [address], [place], [address], 01/06/2023 10:04:13 Procedure Notes None recorded. Medical Equipment None Reported. Medications Name Sig Start Date Stop Date Status Note LastModified by Organization Details LastModified Time azithromyci n 250 mg tablet TK 2 TS PO ON DAY 1, THEN TK 1 T PO D FOR 4 DAYS 05/20 completed Not Available Not Available Not Available tizanidine 4 mg tablet TAKE 1 TABLET BY MOUTH EVERY 8 HOURS FOR 14 DAYS active Not Available Not Available No t Available hydrocodone 5 mg-acetamin ophen 325 mg tablet TAKE 1 TABLET BY MOUTH EVERY 6 HOURS NEEDED FOR PAIN active Not Available Not Available No t Available prednisone 20 mg tablet TAKE 1 TABLET BY MOUTH DAILY active Not Available Not Available No t Available metronidazo le 500 mg tablet TAKE 1 TABLET BY MOUTH THREE TIMES DAILY FOR 10 DAYS active Not Available Not Available No t Available ciprofloxac in 500 mg tablet TAKE 1 TABLET BY MOUTH EVERY 12 HOURS FOR 10 DAYS active Not Available Not Available No t Available sulfamethox azole 800 mg-trimetho prim 160 mg tablet TAKE 1 TABLET BY MOUTH EVERY 12 HOURS active Not Available Not Available No t Available alprazolam 0.5 mg tablet TAKE 1 TABLET BY MOUTH DAILY NEEDED FOR 30 DAYS active Not Available Not Available No t Available amoxicillin 875 mg tablet TAKE 1 TABLET BY MOUTH EVERY 12 HOURS FOR 10 DAYS active Not Available Not Available No t Available Kenalog 10 mg/mL suspension for injection In office injection administe red by the provider active [facility]: 0003- 0494- 20 Not Available Not Available Not Available pantoprazol e 40 mg tablet,ayo yed release active Not Available Not Available Not Available lisinopril 10 mg tablet active Not Available Not Available Not Available Synthroid 75 mcg tablet active Not Available Not Available Not Available diclofenac sodium 75 mg tablet,ayo yed release TAKE 1 TABLET BY MOUTH TWICE DAILY NEEDED 05/20 completed Not Available Not Available Not Available montelukast 10 mg tablet TAKE 1 TABLET BY MOUTH EVERY DAY active Not Available Not Available No t Available lorazepam 1 mg tablet TAKE 2 TABLETS BY MOUTH 90 MINUTES BEFORE PROCEDURE active Not Available Not Available No t Available levofloxaci n 750 mg tablet TAKE 1 TABLET BY MOUTH DAILY active Not Available Not Available No t Available timolol maleate 0.5 % eye drops active Not Available Not Available Not Available rosuvastati n 20 mg tablet active Not Available Not Available Not Available bupropion HCl XL 300 mg 24 hr tablet, extended release active Not Available Not Available Not Available duloxetine 60 mg capsule,del ayed release active Not Available Not Available Not Available peg 3350-electr olytes 236 gram-22.74 gram-6.74 gram-5.86 gram solution TAKE 240ML BY MOUTH EVERY 10 MINUTES DIRECTED active Not Available Not Available No t Available ropivacaine (PF) 5 mg/mL (0.5 %) injection solution Take 2 mg by injection route. active Not Available Not Available No t Available BinaxNOW COVID-19 Ag Self Test kit Use as Directed on the Package active Not Available Not Available No t Available Vitals Date Recorded Body mass index (BMI) Body height Body weight Provider Name and Address Organization Details Last Updated DateTime 05/20/2022 22.1 kg/m2 160.02 cm 22215.05 g Not Available [facility] 10/02/2022 01:24:44 Date Recorded Body mass index (BMI) Body height Body weight Provider Name and Address Organization Details Last Updated DateTime 07/22/2022 21.3 kg/m2 160.02 cm 34539.08 g Not Available [facility] 10/02/2022 01:24:44 Date Recorded Body height Body mass index (BMI) Body weight Provider Name and Address Organization Details Last Updated DateTime 10/14/2022 160.02 cm 21.3 kg/m2 52024.08 g ALISTAIR Treviño [facility] [employer] [facility] 10/14/2022 15:43:18 Date Recorded Body height Body mass index (BMI) Body weight Provider Name and Address Organization Details Last Updated DateTime 11/04/2022 160.02 cm 22.1 kg/m2 15671.05 g ALISTAIR Treviño [facility] [employer] [facility] 11/04/2022 09:08:18 Date Recorded Body height Body mass index (BMI) Body weight Provider Name and Address Organization Details Last Updated DateTime 01/06/2023 160.02 cm 21.8 kg/m2 62952.86 g ALISTAIR Burgos [place] [facility] 01/06/2023 09:07:17 Social History Question Answer Notes LastModified by Organizat ion Details LastModified Time Tobacco Smoking Status Unknown If Ever Smoked Not Available [employer] 10/02/2022 01:24:15 What Is Your Level Of Alcohol Consumption? Occasional [id number] Information not available 10/02/2022 What Was The Date Of Your Most Recent Tobacco Screening? 05/20/2022 [id number] Information not available 10/02/2022 Sex: Unknown Functional Status None recorded. Mental Status None recorded. Family History Relationship Description Onset Age of this Age Resolved Age Notes LastModified by Organization Details LastModified Time Father Heart disease [id number] Not available 10/02/2022 01:24:26 Mother Family history of stroke [id number] Not available 10/02/2022 01:24:26 Mother Family history of malignant neoplasm [id number] Not available 10/02/2022 01:24:26 Medical History Condition Response ARTHRITIS Y CANCER: SPECIFY Y Gynecological HistoryNo gynecological history recorded. Obstetrics History GPAL:G 0 P 0 0 0 0 Past Encounters Encounter ID Performer Location Encounter Start Date Encounter Closed Date Diagnosis/Indication Diagnosis SNOMED-CT Code Diagnosis ICD10 Code Diagnosis Note [id number] [facility] [place] [address] [place] [address] 05/20/2022 00:00:00 05/20/2022 12:17:42 [id number] [facility] [place] [address] [place] [address] 07/22/2022 00:00:00 07/22/2022 10:23:44 [id number] Davey Nuñez MD [facility] [place] [address] [facility] [address] [place] [address] 10/14/2022 15:40:58 10/14/2022 16:33:16 Pain in right hand 3174412222 54920 M79.641 Pain of left hand 456560 8013 43768 M79.642 Tenosynovi tis of right radial styloid 7480813450 4657141 M65.4 Osteoarthr osis of the carpometacarpal joint of the thumb 38988966 M18.9 remove sutures today. Put her in a well fitted left thumb spica brace. No loading or pinching of the thumb. See her back for AP lateral oblique x-rays left hand out of the brace in about 3 weeks and then will start therapy after that [id number] Davey Nuñez MD [facility] [place] [address] [place] [address] 11/04/2022 09:06:02 11/04/2022 10:23:47 Pain in right hand 9990427745 40003 M79.641 Pain of left hand 259482 7718 37785 M79.642 Tenosynovi tis of right radial styloid 9453547616 0665777 M65.4 Osteoarthr osis of the carpometacarpal joint of the thumb 45257358 M18.12 patient can wean from the brace as she feels comfortabl e. She will start therapy now working on range of motion and strengthen ing see the patient back in 2 months for follow-up AP lateral oblique x-rays of the left hand Arthritis of first carpometacarpal joint of left hand 6766092594 743018 M13.842 [id number] IGLESIA Jason [facility] [place] [address] [place] [address] 01/06/2023 09:04:47 01/06/2023 10:24:34 Osteoarthrosis of the carpometacarpal joint of the thumb 55157949 M18.12 67-year-ol d female approximat mitali 3 months status post left CMC arthroplas ty with LRTI. She is doing well and will continue with her thumb strengthen ing exercises. We discussed that at this time she has about 25-50% strength in her thumb. we discussed possible treatment options of the right thumb CMC osteoarthr itis including activity modificati on, bracing, corticoste roid injection, surgical interventi on. Patient is agreeable to bracing and was provided with and fitted for a right [place] thumb spica brace. She will contact our office in March to discuss surgical interventi on on her right thumb CMC joint. 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 we discussed possible treatment options including steroid injection and surgical trigger finger release. We discussed that given the significan ce of her triggering a steroid injection would likely not provide her with benefit at this time. We discussed that if she wants to proceed with CMC arthroplas ty in her right thumb in the future that we could release this finger at that time. Health Concerns Section Related Observation LastModified by Organization Detai ls LastModified Time None Recorded Concern Status LastModified by Organization Details LastModified Time None Recorded Advance Directives Directive None Recorded Payers Encounter Date Sequence Insurance Name Policy Number Policy Hussein Covered Member ID Hussein Member ID Guarantor Name 10/14/2022 1 [place] Adrianna Damian Shegastony [id number] Adrianna Sheeley 10/14/2022 2 [facility] [address] [id number] Adrianna Sheeley 11/04/2022 1 [place] Adrianna N Sheeley [id number] Adrianna Sheeley 11/04/2022 2 [place] ([place] [address] Alexaesteban [id number] Adrianna Sheeley 01/06/2023 1 [place] Adrianna N Sheeley [id number] 4 Adrianna Sheeley 01/06/2023 2 [place] ([place]) [address] OpVistaesteban [id number] Adrianna Shegastony Notes Date Note Type Note Provider Name and Address Organization Details Recorded Time 10/14/2022 text/html patient underwen t a CMC arthroplasty 09/26/2022 doing well comes in today for follow-up Davey Nuñez MD [address] [place] [address], [address] [address], [place], [address], [facility] [address] [facility] 10/14/2022 16:50:25 11/04/2022 text/html patient underwen t a CMC arthroplasty on 09/26/2022 comes in today for follow-up of her left thumb doing well little bit of pain little bit of soft tissue swelling but getting better week by week Davey Nuñez MD [address] [facility] [address], [place], [address], [employer] 11/04/2022 09:43:08 01/06/2023 text/html 67-year-old fema le 3 months status post left thumb CMC arthroplasty with LRTI on 09/26/2022. Patient has been doing well and has continued with thumb strengthening exercises with her home exercise program. She states she occasionally gets cramps while doing those exercises and her thenar muscles. She also reports increasing pain in her right thumb, worse with gripping and pinching. Additionally she notes significant triggering of her right middle finger that requires forced to unlock. IGLESIA Jason [address], [place], [address], [employer] 01/06/2023 10:41:52 OBGyn Episode No OBEpisode recorded.
--- OUTSIDE RECORDS SUMMARY | 2024-09-01 16:32 | XMS_ITS ---
Author Organization [facility] Address [address] [place] [address] Care Team Providers Care Sales Representative Wire Rope Name Role Phone Aly VELEZ, Didier Primary Care Provider Unavailab Lucian Galvez Unavailable [phone] ZZ-Migration, Provider Unavailable Unavailab le REASON FOR VISIT [facility] Conversion Encounter Medications Medication SIG (Take, Route, Frequency, Duration) Notes Start Date End Date Status Pantoprazole Sodium 40 MG 1 tab(s) orall y once a day Active buPROPion HCl ER (SR) 150 MG 1 tab(s) orally 2 times a day Active DULoxetine HCl 20 MG 1 cap(s) orally 2 t imes a day Active Synthroid 25 MCG 1 tab(s) orally once a day Active Montelukast Sodium 10 MG 1 tab(s) orally once a day for 30 day(s) Active Rosuvastatin Calcium 10 MG 1 tab(s) oral ly once a day Active Omeprazole 20 MG 1 cap(s) orally once a day Active Fluticasone Propionate 50 MCG/ACT 2 spray(s) in each nostril BID for 30 day(s) Active Cetirizine HCl 10 MG 1 tab(s) orally BID for 30 days Active Pepcid 20 MG 1 tab(s) orally 1 ti me a day for 30 days Active Montelukast Sodium 10 MG 1 tab(s) orally once a day for 30 day(s) Active ALPRAZolam 1 MG 1 tab(s) orally ever y 8 hours Active Atenolol 25 MG 1 tab(s) orally once a day Active Encounters Encounter Location Date Provider Diagnosis [facility] [place] [address] [place] [address] 01/16/2024 Provider ZZ-Migration Hypertrophy of nasal turbinates J34.3 and Other urticaria L50.8 Assessments Encounter Date Diagnosis (ICD Code) Assessment Notes Treatment Notes Treatment Clinical Notes Section Notes 01/16/2024 Hypertrophy of nasal turbinates (ICD-10 - J34.3) 01/16/2024 Other urticaria (ICD-10 - L50.8) Plan Of Treatment Medication Medication Name Sig Start Date Stop Date Notes Montelukast Sodium 10 MG 1 tab(s) orally once a day for 30 day(s) Fluticasone Propionate 50 MCG/ACT 2 spray(s) in each nostril BID for 30 day(s) Cetirizine HCl 10 MG 1 tab(s) orally BID for 30 days Pepcid 20 MG 1 tab(s) orally 1 ti me a day for 30 days Montelukast Sodium 10 MG 1 tab(s) orally once a day for 30 day(s) Progress Notes * Adrianna KIRKLAND NDOB:[birth year] (69 yo F)Acc No.[id number]:01/16/2024 Patient:?Adrianna KIRKLAND Provider:?Provider Migration :1955???Age:69 Y???Sex:Female D ate:01/16/2024 Address:[address] [place], [place] [address] Pcp:Didier Lu MD Subjective: * Chief Complaints: * ???1. [facility] version Encounter. * Medical History:? * Medications:?Taking ALPRAZol am 1 MG Tablet 1 tab(s) orally every 8 hours , Taking Atenolol 25 MG Tablet 1 tab(s) orally once a day , Taking Rosuvastatin Calcium 10 MG Tablet 1 tab(s) orally once a day , Taking Omeprazole 20 MG Capsule Delayed Release 1 cap(s) orally once a day , Taking Pantoprazole Sodium 40 MG Tablet Delayed Release 1 tab(s) orally once a day , Taking buPROPion HCl ER (SR) 150 MG Tablet Extended Release 12 Hour 1 tab(s) orally 2 times a day , Taking DULoxetine HCl 20 MG Capsule Delayed Release Particles 1 cap(s) orally 2 times a day , Taking Synthroid 25 MCG Tablet 1 tab(s) orally once a day Objective: * Vitals:? Assessment: * Assessment: 1.?Hypertrophy of nasal turb inates - J34.3 (Primary)???2.?Other urticaria - L50.8??? Plan: * Treatment: 2.?Other urticaria? Start Cetirizine HCl Tablet, 10 MG, 1 tab(s), orally, BID, 30 days, 60, Refills 0;?Start Pepcid Tablet, 20 MG, 1 tab(s), orally, 1 time a day, 30 days, 30, Refills 0;?Start Montelukast Sodium Tablet, 10 MG, 1 tab(s), orally, once a day, 30 day(s), 30, Refills 0.?? 3.?Others? Start Montelukast Sodium Tablet, 10 MG, 1 tab(s), orally, once a day, 30 day(s), 30, Refills 1.?? * Billing Information: * Visit Code:? * Procedure Codes:? * Electronic signature of Robert FernandezZ-Migration on 09/01/2024 at 04:32 PM DEMAND PLANNING ANALYST Sign off status: Pending * Provider:?Provider Migration Date:?01/15 Generated for Emmanuel santizo/Eloisa/Arthur on:?09/01/2024 04:32 PM DEMAND PLANNING ANALYST
--- OUTSIDE RECORDS SUMMARY | 2024-09-01 16:32 | XMS_ITS | Referral Summary ---
Author Organization [facility] Address [address] [place] [address] Care Team Providers Care Nurses Director Name Role Phone Didier Lu MD Primary Care Provider [phone] Allergies Active Allergy Reactions Criticality Noted Date Comments Adhesive Tape-Silicones Medications travoprost (TRAVATAN Z) 0.004 % drops instill 1 drop by ophthalmic route every day into affected eye(s) in the evening 0 3 Active SYNTHROID 75 mcg tablet TAKE 1 TABLET EVERY DAY 90 tablet 3 7 Active omeprazole (PriLOSEC) 20 mg capsule Take 20 mg by mouth daily. Active DULoxetine DR (CYMBALTA) 60 mg capsule Take 60 mg by mouth nightly Active buPROPion XL (WELLBUTRIN XL) 300 mg 24 hr tablet Take 300 mg by mouth daily 9 Active ALPRAZolam (XANAX) 0.5 mg tablet Take 0.5 mg by mouth daily [address] (VOLTAREN) 75 mg EC tablet Take 75 mg by mouth daily Active fluticasone propionate (FLONASE) 50 mcg/actuation nasal spray Administer 2 sprays into affected nostril(s) 2 (two) times a day 8 Active lisinopriL (PRINIVIL,ZESTR [place]) 10 mg tablet Take 10 mg by mouth daily 2 Active HYDROcodone-ross taminophen (NORCO) 5-325 mg per tablet Take 5-325 tablets by mouth 2 (two) times a day Active pantoprazole DR (PROTONIX) 40 mg EC tablet Take 40 mg by mouth daily 2 Active rosuvastatin (CRESTOR) 20 mg tablet Take 20 mg by mouth daily 2 Active tiZANidine (ZANAFLEX) 4 mg tablet Take 4 mg by mouth every 8 (eight) hours as needed Active Active Problems Problem Noted Date Diagnosed Date Essential hypertension 11/02/2021 Loose stools 11/02/2021 Pelvic floor dysfunction 11/02/2021 Calculus of gallbladder with cholecystitis 02/10 Overview (11/06/2016): Cholelithiasis and cholecystitis External hemorrhoids 02/05/2016 Acute recurrent sinusitis 10/22/2015 Overview (11/06/2016): Acute recurrent sinusitis, unspecified location Acute sinusitis 10/22/2015 Overview (11/06/2016): Acute sinusitis with symptoms > 10 days Glaucoma 10/04/2014 Overview (11/06/2016): Glaucoma Depression 12/17/2013 Overview (11/06/2016): Depression Hypercholesterolemia 12/17/2013 Overview (11/06/2016): High cholesterol Reflux 12/17/2013 Overview (11/06/2016): Reflux Knee pain 12/17/2013 Overview (11/07/2016): Knee pain Multiple-type hyperlipidemia 06/29/2012 Overview (11/06/2016): Mixed Hyperlipidemia Carpal tunnel syndrome 11/01/2004 Gastroesophageal reflux disease without esophagi tis 10/17/2003 Hyperlipidemia 08/06/2002 Overview (11/06/2016): Hyperlipidemia Acquired hypothyroidism 01/11/2001 Hypothyroidism following external radiotherapy 0 08/06/1998 Overview (11/06/2016): Hypothyroidism following external radiotherapy Non-Hodgkin's lymphoma 08/06/1995 Overview (11/06/2016): Non-Hodgkins lymphoma Immunizations Name Administration Dates Next Due Influenza, Quadrivalent, Spl it, Intramuscular 05/28/2021,05/06/2019 Influenza, Quadrivalent, Spl it, Preservative Free, Intramuscular 04/29/2020 Influenza, Trivalent, IM (MDV) 05/20/2020,2011,05/03/2010 TD Preservative Free 08/03/2011 Td, adsorbed 01/02/2012 Tdap 05/31/2013 Social History Tobacco Use Types Packs/Day Years Used Date Smoking Tobacco: Former Cigarettes Q uit: 1985 Smokeless Tobacco: Former Tobacco Cessation:Counseling Given: No Alcohol Use Standard Drinks/Week Comments Yes 0 (1 standard drink = 0.6 oz pur e alcohol) AUDIT-C Answer Date Recorded Q1: How often do you have a drink containing alc ohol? Monthly or less 11/27/2021 Q2: How many drinks containi ng alcohol do you have on a typical day when you are drinking? 1 or 2 11/27/2021 Q3: How often do you have si x or more drinks on one occasion? 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 Gender Identity Not on file Sexual Orientation Not on file Occupation Industry Job Start Date Job End Date Retired Not on file Not on file Not on file Last Filed Vital Signs Vital Sign Reading Time Taken Comments Blood Pressure 128/80 11/27/2021 10:30 AM CDT Pulse 104 11/27/2021 10:30 AM CDT Temperature - - Respiratory Rate - - Oxygen Saturation 99% 01/22/2017 2:40 PM CDT Inhaled Oxygen Concentration - - Weight 57.9 kg (127 lb 9.6 oz) 11/27/2021 10:30 AM CDT Height 161.3 cm (5' 3.5 ) 11/27/2021 10:30 AM CD T Body Mass Index 22.25 11/27/2021 10:30 AM CDT Plan of Treatment Not on file Procedures Procedure Name Priority Date/Time Associated Diagnosis Comments MAMMOGRAPHY Routine 02/01/2007 from Last 3 Months or Most Recently Relevant to Health Maintenance Results * MAMMOGRAPHY (02/01/2007) Mammogram Unknown us Historical Provider MD HEALTH MAINTENANCE Final Result from Last 3 Months or Most Recently Relevant to Health Maintenance Insurance [facility] Care Teams Nurses Director Relationship Specialty Start Date End Date Didier Lu MD [address] [place] [id number] PCP - General Family Medicine 10/15/21
--- OUTSIDE RECORDS SUMMARY | 2024-09-01 16:32 | XMS_ITS | Clinical Summary ---
Author Organization [facility] Address [address] [place] [address] Care Team Providers Care Sheet Metal Erector Name Role Phone Didier Lu MD Primary Care Provider [phone] Allergies Active Allergy Reactions Criticality Noted Date [...] Free 08/03/2011 Td, adsorbed 01/02/2012 Tdap 05/31/2013 Surgical History Surgery Date Site/Laterality Comments OTHER SURGICAL HISTORY Carpal tunnel 2009 TRIGGER FINGER RELEASE trigger finger OTHER SURGICAL HISTORY bladder suspension 2009 TONSILLECTOMY Tonsillectomy CARPAL TUNNEL RELEASE 2009 Carpal tunnel release CARPAL TUNNEL RELEASE Carpal tunnel release KNEE ARTHROSCOPY Arthroscopy knee OTHER SURGICAL HISTORY biopsy non hodgkins lymphoma OTHER SURGICAL HISTORY port cath in OTHER SURGICAL HISTORY port cath out BLADDER SUSPENSION bladder suspension CHOLECYSTECTOMY Cholecystectomy Medical History Medical History Date Comments Hx Other Medical 2011 removal of torn cartiledge left knee Hx Other Medical port-a-cath ins ertion and removal Hx Other Medical Bladder suspens ion Lymphoma (HCC) Cancer, lymphoma Gastroesophageal reflux disease GERD Disorder of thyroid Thyroid dise ase Depression Depression Hx Other Medical hypothryroidism Hyperlipidemia Hyperlipidemia Hypercholesterolemia High choles terol; Comments: [facility] 10/04/2014 - Hx Other Medical hypothyroidism; Comments: [facility] 10/04/2014 - Non-Hodgkin's lymphoma (HCC) 08/1995 non -hodgkin's lymphoma; Comments: [facility] 10/04/2014 - Hx Other Medical glaucoma; Comme nts: [facility] 10/04/2014 - Glaucoma Hypertension Family History Medical History Relation Name Comments Coronary artery disease Father Rebekah nary artery disease; Heart attack Father heart attack; Other Father Burst aneurysm in stomach; Cause of : Burst aneurysm in stomach Arthritis Mother Arthritis; Coronary artery disease Mother Rebekah nary artery disease; Heart disease Mother Heart disease; Lung cancer Mother Cancer, lung; C ause of : Cancer, lung/Cancer, lung; /Cancer -lung; GDS 02/11/2016 -89 years old when diagnosis Stroke Mother Stroke; /Stroke ; Thyroid disease Mother Thyroid dise ase; Cancer Other 1 Family history of Cancer; Stroke Other 2 Family history of Stroke; Relation Name Status Comments Father (Age 70) Mother Alive Other 1 Other 2 Social History Tobacco Use Types Packs/Day Years [...] on file Legal Sex Female 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 AM 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 Gender Identity Not on file Sexual Orientation Not on file Occupation Industry Job Start Date Job End Date Retired Not on file Not on file Not on file Obstetrics History Last Filed Vital Signs Vital Sign Reading [...] 11/27/2021 10:30 AM CDT Plan of Treatment Health Maintenance Due Date Last Done Comments Colon Cancer Screening-Colonoscopy 1955 Fall Risk Assessment 1955 Hepatitis C Screening 1957 Osteoporosis Screening-Bone Density Scan 1957 Pneumococcal vaccine 65+ (1 of 2 - PCV) 1963 Hepatitis B Screening 1975 Zoster Vaccine (1 of 2) 01/13/1976 Breast Cancer Screening-Mammogram 02/02/2008 007 Depression Screening 01/22/2018 01/22/2017 Covid-19 Vaccine (3 - Pfizer risk series) 11/17/2020 10/20/2020, 09/29/2020 Well Visit 65+ 2022 DTaP/Tdap/Td Vaccine (2 - Td or Tdap) 05/31/2023 05/31/2013, 01/02/2012, 08/03/2011 Influenza Vaccine (#1) 2024 , 05/20/2020, 04/29/2020, Additional history exists Procedures Procedure Name Priority Date/Time Associated Diagnosis Comments MAMMOGRAPHY Routine 02/01/2007 from Last 3 Months or Most Recently Relevant to Health Maintenance Results * MAMMOGRAPHY (02/01/2007) Mammogram Unknown us Historical Provider MD HEALTH MAINTENANCE Final Result from Last 3 Months or Most Recently Relevant to Health Maintenance Insurance [facility] [employer] Care Teams Sheet Metal Erector Relationship Specialty Start Date End Date Didier Lu MD [address] [place] [id number] PCP - General Family Medicine 10/15/21
--- OUTSIDE RECORDS SUMMARY | 2024-09-01 16:34 | XMS_ITS | Encounter Summary ---
Author Organization [facility] Address [address] [place] [address] Care Team Providers Care Adjunct Phlebotomy Instructor Name Role Phone Didier Lu MD Primary Care Provider [phone] Encounter Details Date Type Department Care Team (Late st Contact Info) Description 03/16/2023 Ophth Exam [facility] - Ophthalmology [address] [place] [id number] Jessica Suarez DO [address] [place] [id number] Social History Tobacco Use Types Packs/Day Years Used Date Smoking Tobacco: Former Smokeless Tobacco: Never Alcohol Use Standard Drinks/Week Comments Not Currently 0 (1 standard drink = 0.6 oz pur e alcohol) Sex and Gender Information Value Date Recorded Sex Assigned at Not on file Gender Identity Not on file Sexual Orientation Not on file documented as of this encounter Plan of Treatment Not on file documented as of this encounter Visit Diagnoses Not on filedocumented in this encounter Care Teams Adjunct Phlebotomy Instructor Relationship Specialty Start Date End Date Didier Lu MD PCP - General Family Medicine 08/10/17 documented as of this encounter
--- OUTSIDE RECORDS SUMMARY | 2024-09-01 16:34 | XMS_ITS | Clinical Summary ---
Author Organization [facility] Address [address] [facility] [place] [place] [address] Care Team Providers Care Beef Selector Name Role Phone Didier Lu MD Primary Care Provider [phone] Source Comments [facility],non-[facility] Affiliates and Associated Physician Practices is amultiple site organization consisting of ambulatory clinics and hospital sitesin [place], [place], [place] and [place]. This disclosure is being madepursuant to the Care Everywhere program and may not contain all information available regarding this patient. Last updated 18.[facility] Allergies Active Allergy Reactions Criticality Noted Date Comments Adhesive Sensitivity Rash Medium 08/10/2017 Medications * Be aware that medications may not be up to date on this document. Alwaysverify current medications with the patient. Medication Sig Dispensed Refills Start Date End Date Status pitavastatin (LIVALO) 4 MG tablet Take 4 mg by mouth once daily Active levothyroxine (SYNTHROID) 75 MCG tablet Take 75 mcg by mouth daily before breakfast Active OMEPRAZOLE PO Active travoprost, AMARILIS free, (TRAVATAN Z) 0.004 % ophthalmic solution 1 Drop at bedtime Active DULoxetine (CYMBALTA) 60 MG capsule Take 60 mg by mouth once daily Active fluticasone propionate (FLONASE) 50 MCG/ACT nasal sprayIndications:Acu te sinusitis, recurrence not specified, unspecified location [place] 2 sprays into each nostril once daily 1 bottles 07/28/2018 Active albuterol HFA (VENTOLIN HFA) 108 (90 BASE) MCG/ACT inhalerIndications:A cute bronchitis, unspecified organism Inhale 2 puffs by mouth every 6 hours as needed for Wheezing or Cough 1 Inhaler 07/28/2018 Active erythromycin (Romycin) 5 MG/GM ophthalmic ointment Instill into left eye 4 times daily Use 4 times per day over sutures and into the left eye, after 3 days can apply over sutures only. 3.5 g 03/16/2023 Active Active Problems Problem Noted Date Diagnosed Date Calculus of gallbladder with cholecystitis 02/10 Overview (07/28/2018): Overview: Cholelithiasis and cholecystitis Acute recurrent sinusitis 10/22/2015 Overview (07/28/2018): Overview: Acute recurrent sinusitis, unspecified location Glaucoma 10/04/2014 Overview (07/28/2018): Overview: Glaucoma Unknown and unspecified causes of morbidity 12/01 Overview (07/28/2018): Overview: Hypothyroidism following external radiotherapy Overview: Reflux Knee pain 12/17/2013 Overview (07/28/2018): Overview: Knee pain Depression 12/17/2013 Overview (07/28/2018): Overview: Depression Multiple-type hyperlipidemia 06/29/2012 Overview (07/28/2018): Overview: Mixed Hyperlipidemia Non-Hodgkin's lymphoma 08/06/1995 Overview (07/28/2018): Overview: Non-Hodgkins lymphoma Immunizations Name Administration Dates Next Due TDAP (7yrs+) 03/16/2023(Deferred: Patient Refused - tdap within last 5 yrs per pt) Social History Tobacco Use Types Packs/Day Years Used Date Smoking Tobacco: Former Smokeless Tobacco: Never Tobacco Cessation:Counseling Given: Not Answered Alcohol Use Standard Drinks/Week Comments Not Currently 0 (1 standard drink = 0.6 oz pur e alcohol) Sex and Gender Information Value Date Recorded Sex Assigned at Not on file Gender Identity Not on file Sexual Orientation Not on file Last Filed Vital Signs Vital Sign Reading Time Taken Comments Blood Pressure 132/81 03/16/2023 2:14 PM CDT Pulse 86 03/16/2023 2:14 PM CDT Temperature 36.8 ??C (98.2 ??F) 03/16/2023 2:14 PM CD T Respiratory Rate 16 03/16/2023 2:14 PM CDT Oxygen Saturation 97% 03/16/2023 6:27 PM CDT Inhaled Oxygen Concentration - - Weight 54.4 kg (120 lb) 03/16/2023 2:14 PM CDT Height 160 cm (5' 3 ) 03/16/2023 2:14 PM CDT Body Mass Index 21.26 03/16/2023 2:14 PM CDT Plan of Treatment Health Maintenance Due Date Last Done Comments BONE DENSITY TESTING 1957 COLOGUARD (AGES 45-75) - COLON CA SCREENING 1957 COLON MONITORING 1957 COLONOSCOPY - COLON CA SCREENING 1957 CT COLONOGRAPHY - COLON CA SCREENING 1957 Colorectal Cancer Screening 1957 FIT - COLON CA SCREENING 1957 FLEX SIG - COLON CA SCREENING 1957 MAMMOGRAM 1957 MEDICARE AWV ? 12 MONTHS 1957 HEPATITIS C SCREENING 01/08/1975 DTAP/TDAP/TD VACCINES (1 - Tdap) 01/13/1976 PNEUMOCOCCAL VACCINE 50+ (1 of 1 - PCV) 2007 ZOSTER VACCINE (1 of 2) 2007 COVID-19 VACCINE (4 - season) 2024 07/08/2021, 10/20/2020, 09/29/2020 INFLUENZA VACCINE (#1) 2024 2, 05/28/2021, 05/20/2020, Additional history exists DEPRESSION SCREENING 08/03/2024 Respiratory Syncytial Virus (RSV) Vaccine Pt: or over 60 yrs (1 - 1-dose 75+ series) 01/13/2032 HEPATITIS B VACCINE Aged Out No longe r eligible based on patient's age to complete this topic HIB VACCINE Aged Out No longer eligi ble based on patient's age to complete this topic HPV VACCINE Aged Out No longer eligi ble based on patient's age to complete this topic MENINGOCOCCAL (Group B) VACCINE Aged Out No longer eligible based on patient's age to complete this topic MENINGOCOCCAL VACCINE Aged Out No michelle khoi eligible based on patient's age to complete this topic Care Teams Beef Selector Relationship Specialty Start Date End Date Didier Lu MD PCP - General Family Medicine 08/10/17
--- OUTSIDE RECORDS SUMMARY | 2024-09-01 16:34 | XMS_ITS | Referral Summary ---
Author Organization [facility] Address [address] [place] [place] [address] Care Team Providers Care Clothing Manager Name Role Phone Didier Lu MD Primary Care Provider [phone] Source Comments [facility],non-[facility] Affiliates and Associated Physician Practices is amultiple site organization consisting of ambulatory clinics and hospital sitesin [place], [place], [place] and [place]. This disclosure is being madepursuant to the Care Everywhere program and may not contain all information available regarding this patient. Last updated 18.[facility] Allergies Active Allergy Reactions Criticality Noted Date [...] te sinusitis, recurrence not specified, unspecified location [place] 2 sprays into each nostril once daily [...] 03/16/2023 2:14 PM CDT Plan of Treatment Not on file Care Teams Clothing Manager Relationship Specialty Start Date End Date Didier Lu MD PCP - General Family Medicine 08/10/17
--- OUTSIDE RECORDS SUMMARY | 2024-09-01 16:34 | XMS_ITS | Patient Health Summary ---
Author Organization [facility] Address [address] [facility] [place] [address] Care Team Providers Care Landscape Foreman Name Role Phone Didier Lu MD Primary Care Provider [phone] Note from [facility][note 3],non-owned Affiliates and Associated Physician Practices is amultiple site organization consisting of ambulatory clinics and hospital sitesin [place], [place], [place] and [place]. This disclosure is being madepursuant to the Care Everywhere program and may not contain all information available regarding this patient. Last updated 18.[facility] Allergies * Adhesive Sensitivity(Rash) -Medium Criticality Medications * Be aware that medications may not be up to date on this document. Alwaysverify current medications with the patient. * pitavastatin (LIVALO) 4 MG tablet Take 4 mg by mouth once daily * levothyroxine (SYNTHROID) 75 MCG tablet Take 75 mcg by mouth daily before breakfast * OMEPRAZOLE PO * travoprost, AMARILIS free, (TRAVATAN Z) 0.004 % ophthalmic solution 1 Drop at bedtime * DULoxetine (CYMBALTA) 60 MG capsule Take 60 mg by mouth once daily * fluticasone propionate (FLONASE) 50 MCG/ACT nasal spray(Started 07/28/2018) [place] 2 sprays into each nostril once daily * albuterol HFA (VENTOLIN HFA) 108 (90 BASE) MCG/ACT inhaler(Started 07/28/2018) Inhale 2 puffs by mouth every 6 hours as needed for Wheezing or Cough * erythromycin (Romycin) 5 MG/GM ophthalmic ointment(Started 03/16/2023) Instill into left eye 4 times daily Use 4 times per day over sutures and into the left eye, after 3days can apply over sutures only. Active Problems Problem Noted Date Diagnosed Date Calculus of gallbladder with cholecystitis 02/10 Acute recurrent sinusitis 10/22/2015 Glaucoma 10/04/2014 Unknown and unspecified causes of morbidity 12/01 Knee pain 12/17/2013 Depression 12/17/2013 Multiple-type hyperlipidemia 06/29/2012 Non-Hodgkin's lymphoma 08/06/1995 Social History Tobacco Use Types Packs/Day Years [...] Mass Index 21.26 03/16/2023 2:14 PM CDT Procedures * INFLUENZA A+B - POINT OF CARE (AMB)(Performed 08/10/2017) Performed for Strep throat * STREP A SCREEN - POINT OF CARE (AMB) STL(Performed 08/10/2017) Performed for Strep throat * INFLUENZA A+B - POINT OF CARE (AMB)(Performed 07/22/2017) Performed for Nasopharyngitis acute * URINALYSIS AUTO - POINT OF CARE (AMB) STL(Performed 10/18/2016) Performed for Urinary tract infection without hematuria, site unspecified Results * (ABNORMAL) STREP A SCREEN - POINT OF CARE (AMB) STL (08/10/2017) Strep A Rapid POCT Positive(A) Negative Strep A Internal Control Present Lot # [id number] Expiration Date 03/24/19 Throat ENTIRE THROAT (SURFACE REGION OF NECK) / Unknown 08/10/2017 Patience Collins PRIOR AUTHORIZATION NURSE-ENLISTED ADVISOR LAB - POINT OF CARE ORDERABLES * INFLUENZA A+B - POINT OF CARE (AMB) (08/10/2017) Only the most recent of2 resultswithin the time period is included. Influenza A Antigen Rapid Negative Negative Influenza B Antigen Rapid Negative Negative Influenza Internal Control Present NEGATIVE - POSITIVE Influenza Lot Number [id number] Influenza Expiration Date 04/17/19 Other NASOPHARYNGEAL SWAB / Unknown 08/10/2017 Patience Collins PRIOR AUTHORIZATION NURSE-ENLISTED ADVISOR LAB - POINT OF CARE ORDERABLES * URINALYSIS AUTO - POINT OF CARE (AMB) STL (10/18/2016) Clarity UA POCT clear Color UA POCT yellow Leukocyte UA 70 Negative Nitrite UA POCT neg Negative Urobilinogen UA 0.2 0.1 - 1.0 Protein UA POCT 30 Negative pH UA 6.0 5.0 - 8.0 pH units Blood UA +++ Negative Specific Worth UA POCT 1.015 1.002 - 1.030 Ketone UA neg Negative Bilirubin UA POCT neg Negative Glucose UA neg Negative Expiration Date [id number] Lot # [id number] Verified Yes Yes URINE / Unknown 10/18/2016 Luis Osuna PRIOR AUTHORIZATION NURSE-ENLISTED ADVISOR LAB - POINT OF CARE ORDERABLES Care Teams Landscape Foreman Relationship Specialty Start Date End Date Didier Lu MD PCP - General Family Medicine 08/10/17
== END 2024-09-01 16:28 | disposition home or self-care (01) ==
LOC: ANHIMG 16:29
PROVIDERS: PCP Family Medicine; Visit Provider Family Medicine
DX: R09.89 Other specified symptoms and signs involving the circulatory and respiratory systems (principal); I65.23 Occlusion and stenosis of bilateral carotid arteries
CPT/HCPCS: 93880

== ENCOUNTER 2024-10-10 10:24 | Outpatient (CLI) | payer MEDICARE, BC, SELFPAY ==
--- NOTE | ~2024-10-10 | XR_ITS ---
XR chest 2V Ordering provider: Didier Lu MD History: 69 years Female with . R05.9 - Cough, unspecified . Comparison: None. FINDINGS: MEDIASTINUM: The cardiac silhouette is not enlarged. LUNGS: No infiltrates, effusions or pneumothorax. OTHER: No free air under the diaphragm. Spinal stimulator in the midthoracic area. Degenerative changes of the spine. IMPRESSION: No acute cardiopulmonary pathology. Reviewed, dictated and finalized at location A.
== END 2024-10-10 10:25 | disposition home or self-care (01) ==
PROVIDERS: PCP Family Medicine; Visit Provider Family Medicine
DX: R05.9 Cough, unspecified (principal)
CPT/HCPCS: 71046

== ENCOUNTER 2025-02-27 12:23 | Outpatient (CLI) | payer MEDICARE, BC, SELFPAY ==
--- OUTSIDE RECORDS SUMMARY | 2025-02-27 12:18 | XMS_ITS | Clinical Summary ---
Author Organization [facility] Address [address] [place] [address] Phone Care Team Providers Care Washerette Machine Operator Name Role Phone Didier Lu MD Primary Care Provider [phone] Allergies No known active allergies Medications MULTIPLE [...] Comments Blood Pressure 128/98 06/15/2019 10:13 AM YARD HOSTLER Pulse 99 06/15/2019 10:13 AM YARD HOSTLER Temperature 36.2 C (97.1 F) 06/15/2019 10:13 AM YARD HOSTLER Respiratory Rate 14 06/15/2019 10:13 AM YARD HOSTLER Oxygen Saturation 98% 06/15/2019 10:13 AM YARD HOSTLER Inhaled Oxygen Concentration - - Weight 59.4 kg (131 lb) 06/15/2019 10:13 AM YARD HOSTLER Height 160 cm (5' 3) 06/15/2019 10:13 AM YARD HOSTLER Body Mass Index 23.21 06/15/2019 10:13 AM YARD HOSTLER Plan of Treatment Health Maintenance Due Date Last Done Comments Hepatitis C Virus (HCV) Screening 1957 Cologuard 2002 Colonoscopy 2002 Colorectal Cancer Screening 2002 Immunochemical Fecal Occult Blood 2002 Pneumococcal Immunization (5 0+ years) (1 of 1 - PCV) 2007 Zoster Immunization (1 of 2) 2007 SARS-COV-2 Immunization ( - season) 2024 07/08/2021, 10/20/2020, 09/29/2020 Influenza Immunization (#1) 2025 10/0 11/2018, 07/07/2012 Respiratory Syncytial Virus (RSV) Immunization (Adult) (1 - 1-dose 75+ series) 01/13/2032 DTaP/Tdap/Td Immunization Discontinued 05/31/2013 TdaP Immunization Completed 05/31/2013 Hepatitis B Immunization Aged Out No longer eligible based on patient's age to complete this topic Human Papillomavirus (HPV) Immunization Aged Out No longer eligible based on patient's age to complete this topic Meningococcal Immunization (ACWY) Aged Out No longer eligible based on patient's age to complete this topic Rotavirus Immunization Aged Out No lo nger eligible based on patient's age to complete this topic Insurance [facility] Care Teams Washerette Machine Operator Relationship Specialty Start Date End Date Didier Lu MD [address] [place] [id number] PCP - General Family Medicine 06/15/19
--- OUTSIDE RECORDS SUMMARY | 2025-02-27 12:19 | XMS_ITS | Referral Summary ---
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
--- OUTSIDE RECORDS SUMMARY | 2025-02-27 12:19 | XMS_ITS | Encounter Summary ---
Author Organization [facility] Address [address] [place] [address] Care Team Providers Care Capsule Filler Name Role Phone Didier Lu MD Primary Care Provider [phone] Encounter Details Date Type Department Care Team (Late st Contact Info) Description 03/16/2023 Ophth Exam [facility] - Ophthalmology [address] [place] [id number] Jessica Suarez DO [address] [place] [id number] Social History Tobacco Use Types Packs/Day Years Used Date Smoking Tobacco: Former Smokeless Tobacco: Never Alcohol Use Standard Drinks/Week Comments Not Currently 0 (1 standard drink = 0.6 oz pur e alcohol) Comments No Sex and Gender Information Value Date Recorded Sex Assigned at Not on file Legal Sex Female 8:38 AM CDT Gender Identity Not on file Sexual Orientation Not on file documented as of this encounter Plan of Treatment Not on file documented as of this encounter Visit Diagnoses Not on filedocumented in this encounter Care Teams Capsule Filler Relationship Specialty Start Date End Date Didier Lu MD PCP - General Family Medicine 08/10/17 documented as of this encounter
--- OUTSIDE RECORDS SUMMARY | 2025-02-27 12:19 | XMS_ITS | Clinical Summary ---
Author Organization [facility] Address [address] [place] [address] Care Team Providers Care Welding Tester Name Role Phone Didier Lu MD Primary Care Provider [phone] Allergies Active Allergy Reactions Criticality Noted Date [...] Hyperlipidemia Hyperlipidemia Hypercholesterolemia High choles terol; Comments: [facility] 10/04/2014 - Hx Other Medical hypothyroidism; Comments: [facility] 10/04/2014 - Non-Hodgkin's lymphoma (HCC) 08/1995 non -hodgkin's lymphoma; Comments: [facility] 10/04/2014 - Hx Other Medical glaucoma; Comme nts: 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
--- OUTSIDE RECORDS SUMMARY | 2025-02-27 12:19 | XMS_ITS | Clinical Summary ---
Author Organization [facility] Address [address] [place] [address] Care Team Providers Care Director Of Market Intelligence Name Role Phone Didier Lu MD Primary Care Provider [phone] Source Comments [facility],non-owned Affiliates and Associated Physician Practices is amultiple site organization consisting of ambulatory clinics and hospital sitesin [place], [place], [place] and [place]. This disclosure is being madepursuant to the Care Everywhere program and may not contain all information available regarding this patient. Last updated 18.[facility] Allergies Active Allergy Reactions Criticality Noted Date Comments Adhesive Sensitivity Rash Medium 08/10/2017 Medications * Be aware that medications may not be up to date on this document. Alwaysverify current medications with the patient. pitavastatin (LIVALO) 4 MG tablet Take 4 mg by mouth once daily Active levothyroxine (SYNTHROID) 75 MCG tablet Take 75 mcg by mouth daily before breakfast Active OMEPRAZOLE PO Active travoprost, AMARILIS free, (TRAVATAN Z) 0.004 % ophthalmic solution 1 Drop at bedtime Active DULoxetine (CYMBALTA) 60 MG capsule Take 60 mg by mouth once daily Active fluticasone propionate (FLONASE) 50 MCG/ACT nasal sprayIndications :Acute sinusitis, recurrence not specified, unspecified location [place] 2 sprays into each nostril once daily 1 bottles 8 Active albuterol HFA (VENTOLIN HFA) 108 (90 BASE) MCG/ACT inhalerIndicatio ns:Acute bronchitis, unspecified organism Inhale 2 puffs by mouth every 6 hours as needed for Wheezing or Cough 1 Inhaler 8 Active erythromycin (Romycin) 5 MG/GM ophthalmic ointment Instill into left eye 4 times daily Use 4 times per day over sutures and into the left eye, after 3 days can apply over sutures only. 3.5 g 3 Active Active Problems Problem Noted Date Diagnosed [...] 08/06/1995 Overview (07/28/2018): Overview: Non-Hodgkins lymphoma Immunizations Immunization Administration Dates Next Due TDAP (7yrs+) 03/16/2023(Deferred: [...] 86 03/16/2023 2:14 PM CDT Temperature 36.8 C (98.2 F) 03/16/2023 2:14 PM CDT Respiratory Rate 16 03/16/2023 2:14 PM CDT Oxygen Saturation 97% 03/16/2023 6:27 PM CDT Inhaled Oxygen Concentration - - Weight 54.4 kg (120 lb) 03/16/2023 2:14 PM CDT Height 160 cm (5' 3) 03/16/2023 2:14 PM CDT Body Mass Index [...] CA SCREENING 1957 MAMMOGRAM 1955 MEDICARE AWV 12 MONTHS 1957 HEPATITIS C SCREENING 01/08/1975 DTAP/TDAP/TD VACCINES (1 - Tdap) 01/13/1976 PNEUMOCOCCAL VACCINE 50+ (1 of 1 - PCV) 2007 ZOSTER VACCINE (1 of 2) 2007 COVID-19 VACCINE (4 - season) 2024 07/08/2021, 10/20/2020, 09/29/2020 DEPRESSION SCREENING 08/03/2024 INFLUENZA VACCINE (#1) 2025 2, 05/28/2021, 05/20/2020, Additional history exists Respiratory Syncytial Virus (RSV) Vaccine Pt: or [...] complete this topic MENINGOCOCCAL (Group B) VACCINE SHARED DECISION-MAKING Aged Out No longer eligible based on patient's age to complete this topic MENINGOCOCCAL GROUPS A/C/Y/W VACCINE Aged Out No longer eligible based on patient's age to complete this topic Insurance MEDICARE Care Teams Director Of Market Intelligence Relationship Specialty Start Date End Date Didier Lu MD PCP - General Family Medicine 08/10/17
--- OUTSIDE RECORDS SUMMARY | 2025-02-27 12:27 | XMS_ITS | Clinical Summary ---
Author Organization [facility] Address Formerly [facility] [place] [address] Care Team Providers Care Senior Technical Specialist Name Role Phone Didier Lu MD Primary Care Provider [phone] Allergies Active Allergy Reactions Criticality Noted Date [...] on file Legal Sex Female 12:03 PM PATTERN STAMPER Gender Identity Not on file Sexual Orientation Not on file Last Filed Vital Signs Vital Sign Reading Time Taken Comments Blood Pressure 128/65 06/12/2022 3:46 PM PATTERN STAMPER Pulse 96 06/12/2022 3:46 PM PATTERN STAMPER Temperature 36.4 C (97.5 F) 06/12/2022 3:46 PM PATTERN STAMPER Respiratory Rate 16 06/12/2022 3:46 PM PATTERN STAMPER Oxygen Saturation 99% 06/12/2022 3:46 PM PATTERN STAMPER Inhaled Oxygen Concentration - - Weight 54.4 kg (120 lb) 06/12/2022 12:13 PM PATTERN STAMPER Height 160 cm (5' 3) 06/12/2022 12:13 PM PATTERN STAMPER Body Mass Index 21.26 06/12/2022 12:13 PM PATTERN STAMPER Plan of Treatment Health Maintenance Due Date Last Done Comments Colorectal Cancer Screening Colonoscopy (10 Years) 1957 Hepatitis C 1975 Mammogram Screening 1997 Pneumococcal Vaccine: 50+ Years (1 of 1 - PCV) 2007 Annual Medicare Wellness Visit 2022 Dexa Scan (General) 2022 DTaP, Tdap and Td Vaccines ( 2 - Td or Tdap) 05/31/2023 05/31/2013, 01/02/2012, 08/03/2011 COVID-19 Vaccine (4 - 2023-2 5 season) 2024 07/08/2021, 10/20/2020, 09/29/2020 RSV Immunization or 60+ Years (1 - 1-dose 75+ series) 01/13/2032 Zoster Vaccines Completed 09/30/2021, 06/24/2021 Meningococcal B Vaccine Aged Out No l onger eligible based on patient's age to complete this topic Meningococcal Vaccine Aged Out No michelle khoi eligible based on patient's age to complete this topic RSV Immunizations Under 20 Months Aged Out No longer eligible b ased on patient's age to complete this topic Insurance [facility] MEDICARE Care Teams Senior Technical Specialist Relationship Specialty Start Date End Date Didier Lu MD [address] [place] [id number] PCP - General FAMILY PRACTICE 06/12/22
[2025-02-27 12:41] LABS: Hematocrit 41.7 % (37.0-47.0); Hemoglobin 13.2 g/dL (12.0-15.0); Mean Corpuscular HGB Conc 31.7 g/dl (32-36); Mean Corpuscular Hemoglobin 28.4 pg (26-34); Mean Corpuscular Volume 89.9 fl (80-100); Platelet Count Result 216 k/mm3 (150-375); Red Blood Count 4.64 M/mm3 (4.2-5.4); White Blood Count 5.5 K/mm3 (4.5-10.0)
[2025-02-27 13:00] LABS: Hemoglobin A1C 6.2 % (<5.7)
[2025-02-27 13:00] LABS: Add Urine Microscopic? YES; Appearance Urine Clear (Clear); Glucose Urine UA Negative (Negative); Leukocyte Esterase Ur 2+ LEU/UL (Negative); Nitrate Urine Positive (Negative); Non Pathogenic Casts 0-2; Specific Grav Ur 1.017 (1.001-1.035)
[2025-02-27 13:02] LABS: Alanine Aminotransferase 23 U/L (6-35); Albumin Level 4.4 g/dL (3.5-5.1); Alkaline Phosphatase 84 U/L (38-126); Anion Gap 6 mmol/L (4-12); Aspartate Amino Transferase 41 U/L (14-36); Bilirubin,Total 0.5 mg/dL (0.2-1.3); Blood Urea Nitrogen 10 mg/dL (7-17); Calcium 10.0 mg/dL (8.4-10.2); Carbon Dioxide 28 mmol/L (22-30); Chloride 106 mmol/L (98-107); Estimated Glomerular Filt Rate > 60; Glucose 106 mg/dL (65-110); Potassium 4.4 mmol/L (3.4-5.0); Sodium 140 mmol/L (137-145); Total Protein 7.6 g/dL (6.3-8.2)
[2025-02-27 13:38] LABS: Thyroid Stimulating Hormone 0.521 uIU/mL (0.465-4.680)
[2025-02-27 14:14] LABS: Vitamin B12 377.0 pg/mL (239-931)
[2025-02-27 14:51] LABS: Free T4 Free Thyroxine 1.17 ng/dL (0.78-2.19)
== END 2025-02-27 12:24 | disposition home or self-care (01) ==
PROVIDERS: PCP Family Medicine
DX: K21.9 Gastro-esophageal reflux disease without esophagitis (principal); G62.9 Polyneuropathy, unspecified; R53.83 Other fatigue; R39.9 Unspecified symptoms and signs involving the genitourinary system; I10 Essential (primary) hypertension; R53.1 Weakness; Z13.1 Encounter for screening for diabetes mellitus; E55.9 Vitamin D deficiency, unspecified
CPT/HCPCS: 36415; 80053; 81001; 82306; 82607; 82746; 83036; 84439; 84443; 85027; 85652

== ENCOUNTER 2025-03-23 09:00 | Emergency (ER) | payer MEDICARE, BC, SELFPAY ==
[2025-03-23 09:13] VITALS: BP 136/68; PULSE 68; RESP 16; TEMP 36.6; O2SAT 100
[2025-03-23 09:21] LABS: EDUAAPPEAR Clear; EDUABILI Negative (Negative); EDUABLOOD Negative (Negative); EDUACOLOR1 Yellow; EDUAGLUCOSE Negative (Negative); EDUAKETONE Negative (Negative); EDUALEUKO 1+ (Negative); EDUANITRATE Negative (Negative); EDUAPH 6.0; EDUAPROTEIN Negative (Negative); EDUASPGRAVITY 1.025; EDUAUROBILI 0.2
--- NOTE | 2025-03-23 09:37 | ED.GENADULT ---
HPI - General Adult General Chief complaint: Urogenital-Female Stated complaint: Poison [place]/Uti Symptoms Time Seen by Provider: 03/23/25 09:29 Source: patient, RN notes reviewed and old records reviewed Mode of arrival: ambulatory Limitations: no limitations History of Present Illness HPI narrative: Patient presents today complaining of a pruritic rash to the bilateral arms and left cheek x3 days after pulling weeds outside. Believes it is poison s[place]ia. She has been using some calamine lotion without much improvement. She is also complaining of a possible UTI. Complains of fatigue, brain fog, malodorous urine. She was initially seen by her PCPs office on 02/27/2025 for same complaint, symptoms have been present for least 6 months at that time. At that time, she had some blood in urinalysis done and it was found she had a UTI. She was prescribed Macrobid at that time and subsequent urine culture shows susceptibility to it. States 3 days after she started the antibiotic her symptoms had improved, then worsened again and she has had symptoms ever since. She has not followed up with her PCP regarding these symptoms. 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 Hypertension Degenerative disc disease, lumbar Hypothyroidism History of non-Hodgkin's lymphoma treated with chemotherapy and radiation 1996 Hyperlipidemia Glaucoma Diverticulosis history of diverticulitis Acid reflux Surgical History Surgical History History of biopsy neck mass 07/1996 History of tonsillectomy and adenoidectomy 1960 H/O left knee surgery meniscus tear 02/2012 History of carpal tunnel surgery 2009 History of cholecystectomy 02/2016 History of bladder surgery bladder suspension 12/2010 Family History Family History Father Family history of heart disease in male family member before age 55 Mother Lung cancer High cholesterol Cerebrovascular accident Social History Social History Social History: The patient is and he is the 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 The patient occasionally drinks alcohol. She has 2 children. The patient quit smoking in 1985. 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 Code status full code Smoking packs per day: 1 Smoking cigarettes per day: 20.0 Years smoked: 10 Smoking pack-years: 10.00 Smoking status: Former smoker Tobacco type: cigarettes Alcohol intake: current Drinks per week: 1 Substance use: never Substance use type: does not use Do You Feel Safe in your Home?: Yes Lack of Transportation: No Lack of Food: Never True Current Housing: I Have Housing Concerned About Future Housing: No Difficulty Paying Gas/Electric Bills: No Difficulty Paying for Meds: No Currently Unemployed: No Education: Associate Degree Difficulty w/ Childcare or Family Care: No Living arrangements: with family Occupation/Education: occupation 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 Please see nursing chart for further information. There is no relevant family history pertinent to the presenting complaint Exam Narrative: GENERAL: Well-appearing, well-nourished, and in no acute distress. HEAD: Normocephalic, atraumatic. EYES: EOMI. No redness or drainage. Conjunctivae normal. ENT: Mucous membranes pink and moist. NECK: Normal AROM. CHEST: No respiratory distress. Clear to auscultation. HEART: Regular rate and rhythm. No murmur appreciated. ABDOMEN: Soft, nontender, nondistended, normal active bowel sounds. EXTREMITIES: Normal range of motion. No edema. SKIN: Warm, dry. Capillary refill normal. Normal skin turgor. Erythematous raised rash to the bilateral forearms and left cheek. No drainage or induration noted. NEURO: No focal deficits. Alert and oriented x3. Gait steady. PSYCH: Normal affect. No signs of depression or anxiety. Course Course Level of Care: Express Care Visit Vital Signs Vital signs: Vital Signs Temperature 97.9 F 03/23/25 09:13 Pulse Rate 68 03/23/25 09:13 Respiratory Rate 16 03/23/25 09:13 Blood Pressure 136/68 03/23/25 09:13 Pulse Oximetry 100 03/23/25 09:13 Temperature 97.9 F 03/23/25 09:13 Pulse Rate 68 03/23/25 09:13 Respiratory Rate 16 03/23/25 09:13 Blood Pressure 136/68 03/23/25 09:13 Pulse Oximetry 100 03/23/25 09:13 Reviewed Medical Decision Making MDM Narrative Medical decision making narrative: 70-year-old woman presents today with a pruritic rash to the bilateral forearms and left cheek after exposure to poison saskia 3 days ago outside her home. Calamine lotion has not been helpful. Upon exam, large erythematous raised rash to the bilateral forearms and left cheek, consistent with poison s[place]ia dermatitis. Prescription for tapering prednisone sent to pharmacy. Patient is also complaining of malodorous urine, fatigue, and brain fog, and believe she may have a UTI. Same symptoms evaluated 1 month ago at PCPs office, where was found she had a UTI and treated with Macrobid with susceptible urine culture. Urinalysis today shows 1+ leukocytes, but is otherwise normal. At this time, urine will be cultured him patient will be treated if culture is positive, however, since she was recently treated with his susceptible antibiotic and urinalysis is not consistent with an acute infection, patient will not be started on an antibiotic at this time. Vital signs stable. Patient agrees with plan. Anticipatory guidance given. Differential Diagnosis Differential Diagnosis: UTI, vaginitis, interstitial cystitis, contact dermatitis, eczema, impetigo, urticaria, herpes zoster Vital Signs Vital Signs: Vital Signs Temperature 97.9 F 03/23/25 09:13 Pulse Rate 68 03/23/25 09:13 Respiratory Rate 16 03/23/25 09:13 Blood Pressure 136/68 03/23/25 09:13 Pulse Oximetry 100 03/23/25 09:13 Temperature 97.9 F 03/23/25 09:13 Pulse Rate 68 08/21/25 09:13 Respiratory Rate 16 03/23/25 09:13 Blood Pressure 136/68 03/23/25 09:13 Pulse Oximetry 100 03/23/25 09:13 Lab Data Lab results reviewed: Yes I reviewed the patient's lab results. Labs: Lab Results 03/23/25 Range/Units 09:19 POC Urine Color Yellow POC Urine Clarity Clear POC Urine pH 6.0 POC Ur Specif [place] 1.025 POC Urine Protein Negative (Negative) POC Ur Glucose (UA) Negative (Negative) POC Urine Ketones Negative (Negative) POC Urine Blood Negative (Negative) POC Urine Nitrite Negative (Negative) POC Urine Bilirubin Negative (Negative) POC Urine Urobilinogen 0.2 POC U Leukocyte Esteras 1+ (Negative) Critical Care Time Critical Care Time Critical Care Time: No Discharge Plan Discharge Clinical Impression: Contact dermatitis Qualifiers: Contact dermatitis type: unspecified Contact dermatitis trigger: non-food plants Qualified Code(s): L25.5 - Unspecified contact dermatitis due to plants, except food Patient Disposition: Home Condition: Stable Instructions: Contact Dermatitis (DC) Additional Instructions: Please take the prednisone as prescribed. Your urine will be sent to the hospital for urine culture and you will be notified if you need to be started on antibiotics in a few days. If your urine culture is negative, please follow-up with your PCP regarding your ongoing fatigue and brain fog symptoms. Your blood pressure was elevated above 120/80 today at Urgent Care. This puts you above the threshold for follow up. Please schedule a followup visit with your personal physician as soon as possible, for further evaluation and treatment. Even blood pressure exceeding 120/80 may indicate pre-hypertension. Patient Language: Fijian Prescriptions: New prednisone 10 mg tablet See Rx Instructions .ROUTE .COMPLEX Qty: 30 0RF Rx Instructions: 4 tabs daily x3 days,then 3 tabs daily x3 days,then 2 tabs daily x3 days, then 1 tab daily x3 days No Action alprazolam 0.5 mg tablet 0.5 mg PO DAILY PRN (Reason: anxiety) Qty: 30 2RF hydrocodone bitartrate 10 mg capsule,extended release 12 hr 10 mg PO Q12H timolol maleate 0.5 % drops 1 drp EACH EYE BID levothyroxine [Synthroid] 75 mcg tablet 75 mcg PO DAILY Qty: 90 3RF sertraline 100 mg tablet 100 mg PO DAILY Qty: 90 3RF bupropion HCl 300 mg tablet extended release 24 hr 300 mg PO QAM Qty: 90 3RF rosuvastatin 20 mg tablet 20 mg PO DAILY Qty: 90 3RF rabeprazole [AcipHex] 20 mg tablet,delayed release (DR/EC) 20 mg PO DAILY Qty: 30 3RF Rx Instructions: take 1 tablet daily on empty stomach in the a.m. and wait 15 minutes to eat or drink after work Follow-up/Referrals: Didier Lu MD [Primary Care Provider, Family Practice] Time of Disposition: 09:46
== END 2025-03-23 09:51 | disposition home or self-care (01) ==
PROVIDERS: Emergency Provider Nurse Practitioner; PCP Family Medicine
DX: L25.5 Unspecified contact dermatitis due to plants, except food (principal); I10 Essential (primary) hypertension; M51.369 Other intervertebral disc degeneration, lumbar region without mention of lumbar back pain or lower extremity pain; E03.9 Hypothyroidism, unspecified; E78.5 Hyperlipidemia, unspecified; H40.9 Unspecified glaucoma; F32.4 Major depressive disorder, single episode, in partial remission; Z85.72 Personal history of non-Hodgkin lymphomas; Z87.891 Personal history of nicotine dependence
CPT/HCPCS: 81003; 87086; 99213; G0463

== ENCOUNTER 2025-05-26 00:42 | Day surgery (SDC) | payer MEDICARE, BC, SELFPAY ==
[2025-04-04 14:38] VITALS: BMI 20.2
[2025-05-16 12:00] VITALS: BMI 20.2
[2025-05-26 11:21] VITALS: BP 104/77; PULSE 72; RESP 16; TEMP 36.6; O2SAT 97
[2025-05-26] MEDS: LACTATED RINGERS 1,000 ML 150 ML IV CONT (11:31)
[2025-05-26] MEDS: SIMETHICONE ORAL SUSPENSION 20 MG/0.3 ML 30 ML BOTTLE 1.8 ML PO (11:34)
--- NOTE | 2025-05-26 12:22 | WPDANESEPPF ---
Anes - Initial Pre Proc Eval Procedure: Operation Date: 05/26/25 12:30 Proposed Procedures p Esophagogastroduodenoscopy - Saad Calderon MD Date/Time: 05/26/25 12:22 Surgeon: Saad Calderon MD Pre Op Diagnosis: Dysphagia, unspecified Patient Data Age: 70 Gender: F Height: 1.6 m Weight: 55.2 kg Last Vital Signs Temp 97.8 F 05/26/25 11:21 Pulse 72 05/26/25 11:21 Resp 16 05/26/25 11:21 BP 104/77 05/26/25 11:21 Pulse Ox 97 05/26/25 11:21 O2 Del Method Room Air 05/26/25 11:21 Allergies Allergy/AdvReac Type Severity Reaction Status Date / Time SURGICAL TAPE Allergy Mild RASH AND Uncoded 05/16/25 12:03 ITCHING Home Medications ?Medication ?Instructions ?Recorded ?Confirmed ?Type timolol maleate 0.5 % eye drops 1 drp EACH EYE BID 05/22/22 05/26/25 History levothyroxine 75 mcg tablet 75 mcg PO DAILY #90 tabs 08/25/24 05/26/25 Rx (Synthroid) sertraline 100 mg tablet 100 mg PO DAILY #90 tabs 08/25/24 05/26/25 Rx alprazolam 0.5 mg tablet 0.5 mg PO DAILY PRN anxiety #30 08/29/24 05/16/25 Rx tabs bupropion HCl 300 mg 24 hr tablet, 300 mg PO QAM #90 tabs 11/14/24 05/26/25 Rx extended release rosuvastatin 20 mg tablet 20 mg PO DAILY #90 tabs 11/14/24 05/26/25 Rx hydrocodone bitartrate 10 mg 10 mg PO Q12H PRN pain 02/27/25 04/04/25 History capsule,extended release 12 hr ibuprofen 200 mg tablet (IBU-200) 400 mg PO Q12H 05/16/25 05/26/25 History rabeprazole 20 mg tablet,delayed 20 mg PO DAILY laryngopharyngeal 05/23/25 05/26/25 Rx release (AcipHex) reflux #90 tabs Patient hx anesthesia problems: none Family hx anesthesia problems: none Results Review: All pre-operative results and documents have been reviewed as part of the pre-operative evaluation. 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 Hypertension Degenerative disc disease, lumbar Hypothyroidism History of non-Hodgkin's lymphoma treated with chemotherapy and radiation 1996 Hyperlipidemia Glaucoma Diverticulosis history of diverticulitis Acid reflux Surgical History Surgical History History of biopsy neck mass 07/1996 History of tonsillectomy and adenoidectomy 1960 H/O left knee surgery meniscus tear 02/2012 History of carpal tunnel surgery 2009 History of cholecystectomy 02/2016 History of bladder surgery bladder suspension 12/2010 Family History Family History Father Family history of heart disease in male family member before age 55 Mother Lung cancer High cholesterol Cerebrovascular accident Social History Social History Social History: The patient is and 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 The patient occasionally drinks alcohol. She has 2 children. The patient quit smoking in 1985. 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 Code status full code Smoking packs per day: 1 Smoking cigarettes per day: 20.0 Years smoked: 10 Smoking pack-years: 10.00 Smoking status: Former smoker Tobacco type: cigarettes Alcohol intake: never Drinks per week: 1 Substance use: never Substance use type: does not use Do You Feel Safe in your Home?: Yes Lack of Transportation: No Lack of Food: Never True Current Housing: I Have Housing Concerned About Future Housing: No Difficulty Paying Gas/Electric Bills: No Difficulty Paying for Meds: No Currently Unemployed: No Education: Associate Degree Difficulty w/ Childcare or Family Care: No Living arrangements: with family Occupation/Education: occupation 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 Hyperlipidemia, hypothyroidism, hx of dysphagia. Informed Consent: The patient's anesthetic plan and its attendant risks and benefits were discussed with the patient/family/POA. Questions were solicited and answers provided to the satisfaction of the patient/family/POA.
--- NOTE | 2025-05-26 12:50 | PM.IMHP ---
H&P: HPI History of Present Illness Date/Time: 05/26/25 12:50 Chief Complaint: Dysphagia Narrative: The patient has had dysphagia in the past, several times and has been dilated. She did well for several years but now is having intermittent dysphagia. Now referred for EGD and possible dilatation. Review of Systems Review of Systems: All systems reviewed & are unremarkable except as noted in HPI and below 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 Hypertension Degenerative disc disease, lumbar Hypothyroidism History of non-Hodgkin's lymphoma treated with chemotherapy and radiation 1995, 1996 Hyperlipidemia Glaucoma Diverticulosis history of diverticulitis Acid reflux Surgical History Surgical History History of biopsy neck mass 07/1996 History of tonsillectomy and adenoidectomy 1960 H/O left knee surgery meniscus tear 02/2012 History of carpal tunnel surgery 2009 History of cholecystectomy 02/2016 History of bladder surgery bladder suspension 12/2010 Family History Family History Father Family history of heart disease in male family member before age 55 Mother Lung cancer High cholesterol Cerebrovascular accident Social History Social History Social History: The patient is and 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 The patient occasionally drinks alcohol. She has 2 children. The patient quit smoking in 1985. 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 Code status full code Smoking packs per day: 1 Smoking cigarettes per day: 20.0 Years smoked: 10 Smoking pack-years: 10.00 Smoking status: Former smoker Tobacco type: cigarettes Alcohol intake: never Drinks per week: 1 Substance use: never Substance use type: does not use Do You Feel Safe in your Home?: Yes Lack of Transportation: No Lack of Food: Never True Current Housing: I Have Housing Concerned About Future Housing: No Difficulty Paying Gas/Electric Bills: No Difficulty Paying for Meds: No Currently Unemployed: No Education: Associate Degree Difficulty w/ Childcare or Family Care: No Living arrangements: with family Occupation/Education: occupation 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 Gender identity (if verbalized by the patient): Female Spiritual care concerns: No Meds Home Medications and Allergies Home Medications ?Medication ?Instructions ?Recorded ?Confirmed ?Type timolol maleate 0.5 % eye drops 1 drp EACH EYE BID 05/22/22 05/26/25 History levothyroxine 75 mcg tablet 75 mcg PO DAILY #90 tabs 08/25/24 05/26/25 Rx (Synthroid) sertraline 100 mg tablet 100 mg PO DAILY #90 tabs 08/25/24 05/26/25 Rx alprazolam 0.5 mg tablet 0.5 mg PO DAILY PRN anxiety #30 08/29/24 05/16/25 Rx tabs bupropion HCl 300 mg 24 hr tablet, 300 mg PO QAM #90 tabs 11/14/24 05/26/25 Rx extended release rosuvastatin 20 mg tablet 20 mg PO DAILY #90 tabs 11/14/24 05/26/25 Rx hydrocodone bitartrate 10 mg 10 mg PO Q12H PRN pain 02/27/25 04/04/25 History capsule,extended release 12 hr ibuprofen 200 mg tablet (IBU-200) 400 mg PO Q12H 05/16/25 05/26/25 History rabeprazole 20 mg tablet,delayed 20 mg PO DAILY laryngopharyngeal 05/23/25 05/26/25 Rx release (AcipHex) reflux #90 tabs Allergies Allergy/AdvReac Type Severity Reaction Status Date / Time SURGICAL TAPE Allergy Mild RASH AND Uncoded 05/16/25 12:03 ITCHING Vital Signs Vital Signs - 24 hr 05/26/25 11:21 Temperature 97.8 F Pulse Rate 72 Respiratory Rate 16 Blood Pressure 104/77 Pulse Oximetry 97 Oxygen Delivery Room Air Exam Const: General: cooperative and healthy appearing Resp: Effort & Inspection: normal respiratory effort and able to speak in complete sentences Auscultation: clear to auscultation bilaterally Cardio: Rate: regular rate Rhythm: regular rhythm GI: Inspection: normal to inspection GI Palp: No No hepatosplenomegaly present Auscultation: normal bowel sounds Rectal Exam: deferred Skin: General skin exam: normal color Psych: Appearance: grossly normal Mental Status: mental status grossly normal Assessment and Plan Assessment and plan (1) Dysphagia: Code(s): R13.10 - Dysphagia, unspecified Status: Acute Assessment and Plan: The patient is deemed a good candidate for the procedure. Consent signed. Will proceed.
--- NOTE | 2025-05-26 13:03 | S_PTH ---
PATIENT: Adrianna Cadena LOC: [facility] U#:[id number] AGE/SX: 70/F ROOM: RE05/26/[address]: Saad Calderon MD : 1955 BED: DIS: 05/26/2025 SPEC #: [id number] RECD: 05/26/25 13:24 STATUS: LAUREL REKwesi #: [id number] ARAM: 05/26/25 13:[address]: Saad Calderon DEPT: [facility] Surgical RECD BY: [place] Han ENTERED: 05/26/25 13:25 SP TYPE: Surgical OTHR DR: Didier Lu MD Tissues: A - Gastric Biopsy B - Gastric Biopsy C - Esophageal Biopsy Procedures: Hematoxylin and Eosin Stain Gross and Microscopic Level 4
[2025-05-26 13:04] VITALS: BP 95/58; PULSE 62; RESP 20; O2SAT 100
[2025-05-26 13:14] VITALS: BP 86/53; PULSE 60; RESP 20; O2SAT 100
[2025-05-26 13:24] VITALS: BP 117/69; PULSE 61; RESP 15; O2SAT 100
== END 2025-05-26 13:43 | disposition home or self-care (01) ==
PROVIDERS: PCP Family Medicine; Visit Provider Internal Medicine Gastroenterology
PROC: 0DJ08ZZ Inspection of Upper Intestinal Tract, Via Natural or Artificial Opening Endoscopic (ICD-10-PCS; CPT 43239; principal; 2025-05-26 12:30)
DX: K21.00 Gastro-esophageal reflux disease with esophagitis, without bleeding (principal); D13.1 Benign neoplasm of stomach; I10 Essential (primary) hypertension; E78.5 Hyperlipidemia, unspecified; E03.9 Hypothyroidism, unspecified; F32.4 Major depressive disorder, single episode, in partial remission; M51.369 Other intervertebral disc degeneration, lumbar region without mention of lumbar back pain or lower extremity pain; Z79.891 Long term (current) use of opiate analgesic; Z79.1 Long term (current) use of non-steroidal anti-inflammatories (NSAID); Z98.890 Other specified postprocedural states; Z90.49 Acquired absence of other specified parts of digestive tract; Z87.891 Personal history of nicotine dependence; Z85.72 Personal history of non-Hodgkin lymphomas; Z92.3 Personal history of irradiation; Z92.21 Personal history of antineoplastic chemotherapy; Z87.19 Personal history of other diseases of the digestive system; Z80.1 Family history of malignant neoplasm of trachea, bronchus and lung; Z82.49 Family history of ischemic heart disease and other diseases of the circulatory system
CPT/HCPCS: 43239; 88305; J2003; J2704; J7120